=== PATIENT | female | born 2000 | race Caucasian/White ===

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

== ENCOUNTER 2019-02-26 02:15 | Emergency (ER) | payer OTHER ==
[2019-02-26 02:22] VITALS: TEMP 98
[2019-02-26] MEDS ORDERED: SODIUM CHLORIDE 0.9% 1,000 ML IV STA (02:31)
[2019-02-26] MEDS ORDERED: METOCLOPRAMIDE 5 MG/ML 2 ML VIAL IVP STA (02:31)
[2019-02-26] MEDS ORDERED: diphenhydrAMINE 50 MG/ML 1 ML VIAL IVP STA (02:31)
--- NOTE | 2019-02-26 03:57 | ED ---
Headache HPI - General Chief Complaint: Headache Stated Complaint: Migraine 16wks Time Seen by Provider: 02/26/19 02:31 Mode of arrival: ambulatory Limitations: no limitations - History of Present Illness Initial Comments: Patient is a pleasant 18-year-old female in the emergency department today for evaluation of migraine headache. 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 Patient reports that she was previously on multiple medications for her headaches however she is currently 16 weeks and can no longer take any medications. She's been having a headache since yesterday. Headache is diffuse, throbbing identical to previous migraines. Not sudden in onset not worst headache of her life. - Related Data Home Medications Medication Instructions Recorded Confirmed Norethindrone-E.estradiol-Iron 1 tab PO DAILY 01/03/17 08/30/17 [Junel Fe 1.5 mg-30 Mcg Tablet] Cyclobenzaprine [Flexeril] 10 mg PO BID 08/30/17 08/30/17 Previous Rx's Medication Instructions Recorded methylPREDNISolone [Medrol Dose 4 mg PO DIRECTED #1 pack 08/30/17 Pack] Allergies Allergy/AdvReac Type Severity Reaction Status Date / Time amoxicillin Allergy Rash/Hives Verified 02/26/19 02:23 Penicillins Allergy Rash/Hives Verified 02/26/19 02:23 Review of Systems ROS Statement: Those systems with pertinent positive or pertinent negative responses have been documented in the HPI. ROS Other: All systems not noted in ROS Statement are negative. Past Medical History Additional Past Medical History / Comment(s): chiari malformation, migraines. History of Any Multi-Drug Resistant Organisms: None Reported Past Surgical History: Adenoidectomy, Ear Surgery, Tonsillectomy Additional Past Surgical History / Comment(s): Chiari malformation repaired Past Psychological History: Anxiety, Depression, PTSD Smoking Status: Former smoker Past Alcohol Use History: None Reported Past Drug Use History: Marijuana General Exam - General Exam Comments Initial Comments: Physical Exam GENERAL: Patient is well-developed and well-nourished. Patient is nontoxic and well-hydrated and is in no distress. HENT: Normocephalic, Atraumatic. EYES: PERRL, EOMI PULMONARY: Unlabored respirations. CARDIOVASCULAR: RRR Warm and well perfused extremities ABDOMEN: Gravid abdomen with a uterus palpable below the umbilicus SKIN: No rashes or bruising : Deferred NEUROLOGIC: Alert and oriented Normal speech Normal gait MUSCULOSKELETAL: Moving all extremities with no apparent injury PSYCHIATRIC: No SI/HI Limitations: no limitations Course Vital Signs 02/26/19 02:18 Temperature 98 F Pulse Rate 92 Respiratory 20 Rate Blood Pressure 112/70 O2 Sat by Pulse 98 Oximetry Medical Decision Making - Medical Decision Making Patient was seen and evaluated history is obtained from patient and sinuses a pleasant 18 oh female with history of chronic migraines presenting today with a migraine. Patient is not hypertensive, not having abdominal pain or cramping. No concern for preeclampsia or eclampsia especially considering she is early in the second trimester with normal vital signs. Headache management was discussed with the patient, discussed with the patient that while no medications are proven absolutely safe in I would recommend Reglan and Benadryl for her headache, patient is agreeable. She was reevaluated after receiving medicines. She reports her headache is resolved she is resting comfortably she is comfortable with the plan for discharge home. Disposition Clinical Impression: Headache Disposition: HOME SELF-CARE Condition: Stable Instructions (If sedation given, give patient instructions): Acute Headache (ED) Is patient prescribed a controlled substance at d/c from ED?: No Referrals: Daren Joel MD [Primary Care Provider] - 1-2 days
[2019-02-26 05:22] VITALS: BP 91/45; PULSE 98; RESP 16
== END 2019-02-26 05:30 | disposition home or self-care (01) ==
LOC: EC 02:15
DX: O99.352 Diseases of the nervous system complicating pregnancy, second trimester (principal); G43.909 Migraine, unspecified, not intractable, without status migrainosus; Z88.0 Allergy status to penicillin; Z79.3 Long term (current) use of hormonal contraceptives; Z79.899 Other long term (current) drug therapy; Z87.798 Personal history of other (corrected) congenital malformations; Z98.890 Other specified postprocedural states; Z87.891 Personal history of nicotine dependence; Z3A.16 16 weeks gestation of pregnancy
CPT/HCPCS: 96374; 96375; 96361; 99283; J1200; J2765

== ENCOUNTER → 2019-05-16 | Outpatient (CLI) | payer OTHER ==
--- NOTE | 2019-05-16 09:37 | MR ---
EXAMINATION TYPE: MR brain wo con DATE OF EXAM: 05/16/2019 COMPARISON: Correlation CT 12/23/2018 HISTORY: 19-year-old female Q07.9, Post Surgical Chiari malformation f/u TECHNIQUE: Multiplanar, multisequence images of the brain and brainstem were acquired without IV con trast. Diffusion weighted imaging is performed. FINDINGS: Redemonstrated suboccipital decompression and likely some resection along the cerebellar tonsils. No abnormal crowding seen within the posterior cranial fossa. No evidence for acute infarction, hemorrhage, mass, mass effect, midline shift, herniation, effacemen t of basal cisterns, or extra-axial fluid collection. The ventricles and sulci are age-appropriate. Major intracranial flow voids are intact. T2/FLAIR weighted sequences show no white matter signal abnormality. Midline structures demonstrate normal morphology. Scattered trace mucosal thickening ethmoid air cells. Globes are intact. IMPRESSION: Status post suboccipital decompression for Chiari malformation. Otherwise, no intracranial abnormalit y seen.
== END | disposition home or self-care (01) ==
LOC: RADMRIMAIN 07:00
PROVIDERS: ATTEND Neurological Surgery
DX: G93.5 Compression of brain (principal); Q07.9 Congenital malformation of nervous system, unspecified; Z98.890 Other specified postprocedural states
CPT/HCPCS: 70551

== ENCOUNTER 2019-05-23 03:27 | Emergency (ER) | payer OTHER ==
[2019-05-23 03:44] VITALS: RESP 18; TEMP 98.1
[2019-05-23] MEDS ORDERED: SODIUM CHLORIDE 0.9% 1,000 ML IV STA (03:48)
--- NOTE | 2019-05-23 03:52 | ED ---
General Adult HPI - General Chief complaint: Nausea/Vomiting/Diarrhea Stated complaint: Dizzy, fever Time Seen by Provider: 05/23/19 03:48 Source: patient Mode of arrival: ambulatory Limitations: no limitations - History of Present Illness Initial comments: is a 19 yo female currently 8 weeks 4 days presenting to the emergency department today for evaluation of nausea and vomiting and generalized malaise and low-grade fever throughout the day today. Patient reports that she woke the morning yesterday didn't feel very well noted that she had a temperature of 100. She states that she took some Tylenol but throughout the day had waves of nausea vomiting. Patient states that she would feel very hot checking temperature 90 about 100 but then 10 minutes later would be gone. This was persistent throughout the day and the night she became concerned that she may be getting dehydrated which prompted her to come to the ER for evaluation. - Related Data Home Medications Medication Instructions Recorded Confirmed Norethindrone-E.estradiol-Iron 1 tab PO DAILY 01/03/17 08/30/17 [Junel Fe 1.5 mg-30 Mcg Tablet] Cyclobenzaprine [Flexeril] 10 mg PO BID 08/30/17 08/30/17 Previous Rx's Medication Instructions Recorded methylPREDNISolone [Medrol Dose 4 mg PO DIRECTED #1 pack 08/30/17 Pack] Allergies Allergy/AdvReac Type Severity Reaction Status Date / Time amoxicillin Allergy Rash/Hives Verified 05/23/19 03:44 Penicillins Allergy Rash/Hives Verified 05/23/19 03:44 Review of Systems ROS Statement: Those systems with pertinent positive or pertinent negative responses have been documented in the HPI. ROS Other: All systems not noted in ROS Statement are negative. Past Medical History Additional Past Medical History / Comment(s): chiari malformation, migraines. History of Any Multi-Drug Resistant Organisms: None Reported Past Surgical History: Adenoidectomy, Ear Surgery, Tonsillectomy Additional Past Surgical History / Comment(s): Chiari malformation repaired Past Psychological History: Anxiety, Depression, PTSD Smoking Status: Former smoker Past Alcohol Use History: None Reported Past Drug Use History: None Reported, Marijuana General Exam - General Exam Comments Initial Comments: Physical Exam GENERAL: Patient is well-developed and well-nourished. Patient is nontoxic and well- hydrated and is in no distress. HENT: Normocephalic, Atraumatic. EYES: PERRL, EOMI PULMONARY: Unlabored respirations. No audible rales rhonchi or wheezing was noted. CARDIOVASCULAR: Tachycardic, regular ABDOMEN: Gravid abdomen within urine fundus at the xiphoid No abdominal tenderness SKIN: Skin is clear with no lesions or rashes and otherwise unremarkable. : Deferred NEUROLOGIC: Patient is alert and oriented x3. Moving all extremities spontaneously MUSCULOSKELETAL: Normal extremities with adequate strength and full range of motion. No lower extremity swelling or edema. No calf tenderness. PSYCHIATRIC: Normal psychiatric evaluation. Limitations: no limitations Course Vital Signs 05/23/19 05/23/19 03:39 06:02 Temperature 98.1 F Pulse Rate 117 H 83 Respiratory 18 18 Rate Blood Pressure 106/68 103/56 O2 Sat by Pulse 98 100 Oximetry Medical Decision Making - Medical Decision Making The patient was seen and evaluated, history is obtained from patient Nurses came from OB to obtain heart tones noted they were in the 140s Physical exam is relatively unremarkable patient appears mildly dehydrated Labs results with no acute abnormalities, patient receiving 1 L fluid bolus Bedside ultrasound reveals an active fetus Influence was negative, however patient does have an flulike illness. At this time patient's feeling better she's afebrile she never had a fever in the emergency department. Patient is stable for discharge. Patient is drinking juice with no further nausea or vomiting. Patient care was discussed with Dr. Ayon prior to discharge, he states the patient doesn't require any further monitoring on the labor and delivery floor and is stable for discharge home. He is comfortable plan for discharge with Zofran when necessary for nausea. - Lab Data Result diagrams: 05/23/19 04:03 05/23/19 04:03 Lab Results 05/23/19 05/23/19 05/23/19 Range/Units 03:53 03:56 04:03 WBC 11.5 H (4.0-11.0) k/uL RBC 4.10 (3.80-5.40) m/uL Hgb 11.8 (11.4-16.0) gm/dL Hct 35.4 (34.0-46.0) % MCV 86.4 (80.0-100.0) fL MCH 28.7 (25.0-35.0) pg MCHC 33.3 (31.0-37.0) g/dL RDW 12.7 (11.5-15.5) % Plt Count 243 (150-450) k/uL Neutrophils % 70 % Lymphocytes % 20 % Monocytes % 6 % Eosinophils % 1 % Basophils % 0 % Neutrophils # 8.0 H (1.3-7.7) k/uL Lymphocytes # 2.3 (1.0-4.8) k/uL Monocytes # 0.7 (0-1.0) k/uL Eosinophils # 0.1 (0-0.7) k/uL Basophils # 0.0 (0-0.2) k/uL Sodium (137-145) mmol/L Potassium (3.5-5.1) mmol/L Chloride (98-107) mmol/L Carbon Dioxide (22-30) mmol/L Anion Gap mmol/L BUN (7-17) mg/dL Creatinine (0.52-1.04) mg/dL Est GFR (CKD-EPI)AfAm (>60 ml/min/1.73 sqM) Est GFR (CKD-EPI)NonAf (>60 ml/min/1.73 sqM) Glucose (74-99) mg/dL Calcium (8.4-10.2) mg/dL Total Bilirubin (0.2-1.3) mg/dL AST (14-36) U/L ALT (4-34) U/L Alkaline Phosphatase (38-126) U/L Total Protein (6.3-8.2) g/dL Albumin (3.5-5.0) g/dL Amylase (30-110) U/L Lipase (23-300) U/L Urine Color Yellow Urine Appearance Clear (Clear) Urine pH 5.5 (5.0-8.0) Ur Specific Foley 1.020 (1.001-1.035) Urine Protein Trace H (Negative) Urine Glucose (UA) Negative (Negative) Urine Ketones Trace H (Negative) Urine Blood Negative (Negative) Urine Nitrite Negative (Negative) Urine Bilirubin Negative (Negative) Urine Urobilinogen <2.0 (<2.0) mg/dL Ur Leukocyte Esterase Negative (Negative) Influenza Type A RNA Not Detected (Not Detectd) Influenza Type B (PCR) Not Detected (Not Detectd) 05/23/19 Range/Units 04:03 WBC (4.0-11.0) k/uL RBC (3.80-5.40) m/uL Hgb (11.4-16.0) gm/dL Hct (34.0-46.0) % MCV (80.0-100.0) fL MCH (25.0-35.0) pg MCHC (31.0-37.0) g/dL RDW (11.5-15.5) % Plt Count (150-450) k/uL Neutrophils % % Lymphocytes % % Monocytes % % Eosinophils % % Basophils % % Neutrophils # (1.3-7.7) k/uL Lymphocytes # (1.0-4.8) k/uL Monocytes # (0-1.0) k/uL Eosinophils # (0-0.7) k/uL Basophils # (0-0.2) k/uL Sodium 135 L (137-145) mmol/L Potassium 3.9 (3.5-5.1) mmol/L Chloride 104 (98-107) mmol/L Carbon Dioxide 23 (22-30) mmol/L Anion Gap 8 mmol/L BUN 7 (7-17) mg/dL Creatinine 0.42 L (0.52-1.04) mg/dL Est GFR (CKD-EPI)AfAm >90 (>60 ml/min/1.73 sqM) Est GFR (CKD-EPI)NonAf >90 (>60 ml/min/1.73 sqM) Glucose 77 (74-99) mg/dL Calcium 9.0 (8.4-10.2) mg/dL Total Bilirubin 0.1 L (0.2-1.3) mg/dL AST 26 (14-36) U/L ALT 15 (4-34) U/L Alkaline Phosphatase 87 (38-126) U/L Total Protein 6.5 (6.3-8.2) g/dL Albumin 3.6 (3.5-5.0) g/dL Amylase 62 (30-110) U/L Lipase 40 (23-300) U/L Urine Color Urine Appearance (Clear) Urine pH (5.0-8.0) Ur Specific Foley (1.001-1.035) Urine Protein (Negative) Urine Glucose (UA) (Negative) Urine Ketones (Negative) Urine Blood (Negative) Urine Nitrite (Negative) Urine Bilirubin (Negative) Urine Urobilinogen (<2.0) mg/dL Ur Leukocyte Esterase (Negative) Influenza Type A RNA (Not Detectd) Influenza Type B (PCR) (Not Detectd) Disposition Clinical Impression: Flu-like symptoms Disposition: HOME SELF-CARE Condition: Stable Instructions (If sedation given, give patient instructions): Acute Nausea and Vomiting (ED) Is patient prescribed a controlled substance at d/c from ED?: No Referrals: Daren Joel MD [Primary Care Provider] - 1-2 days
[2019-05-23 04:14] LABS: Basophils % (A) 0 %; Eosinophils # (A) 0.1 k/uL (0-0.7); Eosinophils % (A) 1 %; HCT 35.4 % (34.0-46.0); HGB 11.8 gm/dL (11.4-16.0); Lymphocytes # (A) 2.3 k/uL (1.0-4.8); Lymphocytes % (A) 20 %; MCH 28.7 pg (25.0-35.0); MCHC 33.3 g/dL (31.0-37.0); MCV 86.4 fL (80.0-100.0); Mean Platelet Volume 7.3; Monocytes # (A) 0.7 k/uL (0-1.0); Monocytes % (A) 6 %; Neutrophils % (A) 70 %; Platelet Count 243 k/uL (150-450); RDW 12.7 % (11.5-15.5); WBC 11.5 k/uL (4.0-11.0)
[2019-05-23 04:19] LABS: Appearance,Urine Clear (Clear); Bilirubin,Urine Negative (Negative); Blood,Urine Negative (Negative); Color,Urine Yellow; Glucose,Urine (UA) Negative (Negative); Ketones,Urine Trace (Negative); Leukocyte Esterase,Urine Negative (Negative); Nitrite,Urine Negative (Negative); PH, Urine 5.5 (5.0-8.0); Protein,Urine Trace (Negative); Urobilinogen,Urine <2.0 mg/dL (<2.0)
[2019-05-23 04:23] LABS: ALT 15 U/L (4-34); AST 26 U/L (14-36); African American GFR (CKD) >90 (>60 ml/min/1.73 sqM); Albumin 3.6 g/dL (3.5-5.0); Alkaline Phosphatase 87 U/L (38-126); Amylase 62 U/L (30-110); Anion Gap 8 mmol/L; Blood Urea Nitrogen 7 mg/dL (7-17); Carbon Dioxide 23 mmol/L (22-30); Chloride 104 mmol/L (98-107); Glucose 77 mg/dL (74-99); Non-African American GFR(CKD) >90 (>60 ml/min/1.73 sqM); Potassium 3.9 mmol/L (3.5-5.1); Sodium 135 mmol/L (137-145); Total Bilirubin 0.1 mg/dL (0.2-1.3); Total Protein 6.5 g/dL (6.3-8.2)
[2019-05-23 06:03] VITALS: BP 103/56; PULSE 83
[2019-05-23] MEDS ORDERED: ONDANSETRON 4 MG ODT STARTER PACK 2 TAB BTL PO STA (06:26)
== END 2019-05-23 06:35 | disposition home or self-care (01) ==
LOC: EC 03:27
DX: O21.9 Vomiting of pregnancy, unspecified (principal); O99.89 Other specified diseases and conditions complicating pregnancy, childbirth and the puerperium; E86.0 Dehydration; Z79.3 Long term (current) use of hormonal contraceptives; Z88.0 Allergy status to penicillin; Z87.891 Personal history of nicotine dependence; Z87.798 Personal history of other (corrected) congenital malformations; Z98.890 Other specified postprocedural states; Z3A.08 8 weeks gestation of pregnancy
CPT/HCPCS: 36415; 80053; 81003; 82150; 83690; 85025; 87502; 96360; 96361; 99284

== ENCOUNTER → 2019-06-05 | Outpatient (CLI) | payer OTHER ==
[2019-06-05 10:40] LABS: Glucose 3 Hour, Gest 89 mg/dL
== END | disposition home or self-care (01) ==
LOC: LABWHC1 06:45
PROVIDERS: ATTEND Obstetrics & Gynecology
DX: O99.810 Abnormal glucose complicating pregnancy (principal); Z3A.00 Weeks of gestation of pregnancy not specified
CPT/HCPCS: 36415; 82951; 82952

== ENCOUNTER 2019-08-03 12:14 | Outpatient (CLI) | payer OTHER ==
[2019-08-03 13:32] VITALS: BP 110/61; PULSE 102; RESP 16; TEMP 97.3
--- NOTE | 2019-08-23 09:32 | P.MSEPDOC ---
Presenting Problems - Arrival Data Date of Arrival on Unit: 08/03/19 Time of Arrival on Unit: 12:14 Mode of Transport: Ambulatory - Complaint OB-Reason for Admission/Chief Complaint: Rule Out SROM, Decreased Movement Medical History - Information : 1 Para: 0 Term: 0 : 0 Abortions: Spontaneous or Elective: 0 Number of Living Children: 0 - Gestational Age Gestational Age by MINGO (wks/days): 38 Weeks and 5 Days Review of Systems - Review of Systems Constitutional: No problems Breast: No problems ENT: No problems Cardiovascular: No problems Respiratory: No problems Gastrointestinal: No problems Genitourinary: No problems Musculoskeletal: No problems Neurological: No problems Skin: No problems Vital Signs - Temperature Temperature: 97.3 F Temperature Source: Temporal Artery Scan - Pulse Right Brachial Pulse Rate: 102 Pulse Assessment Method: Automatic Cuff - Respirations Respiratory Rate: 16 - Blood Pressure Right Arm Blood Pressure: 110/61 Blood Pressure Mean: 77 Blood Pressure Source: Automatic Cuff Medical Screen Scoring (Pre) - Cervical Exam Dilation: 1-3 cm = 1 Membranes: Intact - Uterine Contractions Frequency: N/A Duration: N/A Intensity: N/A - Maternal Vital Signs Maternal Temperature: N/A Maternal Blood Pressure: N/A Signs of Preeclampsia: N/A Maternal Respirations: N/A - Maternal Trauma Maternal Trauma: N/A - Assessment - Baby A Baseline FHR: 140 Heart Rate - NICHD Category: Category I (Normal) = 0 NST: Reactive Position: N/A Station: N/A - Total Score - Baby A Total Score - Baby A: 1 - Total Score - Baby B Total Score - Baby B: 1 - Total Score - Baby C Total Score - Baby C: 1 - Level of Risk - Baby A Level of Risk - Baby A: Low (0-5) - Level of Risk - Baby B Level of Risk - Baby B: Low (0-5) - Level of Risk - Baby C Level of Risk - Baby C: Low (0-5) Physician Notification (Pre) - Physician Notified Physician Notified Date: 08/03/19 Physician Notified Time: 13:14 New Order Received: Yes - Notification Comment Comment: Dr. Hawk gave orders to discharge home and keep appointment for next Tuesday Disposition - Disposition OB Disposition: Discharge to home Discharge Date: 08/03/19 Discharge Time: 13:23 I agree with the RN Medical Screening Exam: Yes Risk & Benefit of care provided described in d/c instruction: Yes Diagnosis: DECREASED MOVEMENTS, THIRD TRIMESTER, UNSP
== END 2019-08-03 13:23 | disposition home or self-care (01) ==
LOC: FBPOP 12:14
PROVIDERS: ATTEND Obstetrics & Gynecology
DX: O36.8130 Decreased fetal movements, third trimester, not applicable or unspecified (principal); Z3A.38 38 weeks gestation of pregnancy
CPT/HCPCS: 59025; 84112; G0463; 99213

== ENCOUNTER → 2019-08-10 | Outpatient (CLI) | payer OTHER | END | disposition home or self-care (01) | LOC: LABWHC1 11:51 | PROVIDERS: ATTEND Obstetrics & Gynecology | DX: Z11.59 Encounter for screening for other viral diseases (principal) | CPT/HCPCS: 87635 ==

== ENCOUNTER 2019-08-15 06:00 | Inpatient (IN) | payer OTHER ==
[~2019-08-15 06:00] MED LIST: CARBOPROST TROMETHAMINE 250 MCG/ML 1 ML AMP IM PRN; LIDOCAINE 0.5% (PF) 5 MG/ML (50 ML SDV) SQ PRN; METHYLERGONOVINE 0.2 MG/ML 1 ML AMP IM PRN; OXYTOCIN 10 UNIT/ML 1 ML VIAL IM PRN; TERBUTALINE 1 MG/ML VIAL SQ PRN
[2019-08-15] MEDS: LACTATED RINGERS 1,000 ML IV SCH ×3 (07:02→14:37)
[2019-08-15] MEDS: OXYTOCIN 30 UNITS/500 ML NS 30 UNIT in SALINE 1 500ML.BAG IV SCH (07:03)
[2019-08-15 07:09] LABS: Anisocytosis Slight; Basophils % (A) 1 %; Eosinophils # (A) 0.1 k/uL (0-0.7); Eosinophils % (A) 1 %; HCT 32.4 % (34.0-46.0); HGB 10.5 gm/dL (11.4-16.0); Hypochromasia Moderate; Lymphocytes # (A) 2.3 k/uL (1.0-4.8); Lymphocytes % (A) 27 %; MCH 25.1 pg (25.0-35.0); MCHC 32.2 g/dL (31.0-37.0); MCV 77.7 fL (80.0-100.0); Mean Platelet Volume 9.2; Microcytosis Slight; Monocytes # (A) 0.6 k/uL (0-1.0); Monocytes % (A) 7 %; Neutrophils # (A) 5.1 k/uL (1.3-7.7); Neutrophils % (A) 61 %; Platelet Count 193 k/uL (150-450); RBC 4.17 m/uL (3.80-5.40); RDW 16.2 % (11.5-15.5); WBC 8.3 k/uL (4.0-11.0)
[2019-08-15] MEDS ORDERED: FAMOTIDINE 20 MG/2 ML VIAL IV STA (07:13)
[2019-08-15] MEDS: BUTORPHANOL 1 MG/ML 1 ML VIAL IV PRN ×2 (11:37→13:43)
--- NOTE | 2019-08-15 13:04 | P.HPOB ---
History of Present Illness H&P Date: 08/15/19 Chief Complaint: Induction of labor 19-year-old presents at 40 weeks and 3 days for induction of labor. Her cervix was 1 cm dilated, 70% effaced, -2 station. She is robbin irregularly. heart tones 130 with moderate variability and reactive. Review of Systems All systems: negative Constitutional: Denies chills, Denies fever Eyes: denies blurred vision, denies pain Ears, nose, mouth and throat: Denies headache, Denies sore throat Cardiovascular: Denies chest pain, Denies shortness of breath Respiratory: Denies cough Gastrointestinal: Denies abdominal pain, Denies diarrhea, Denies nausea, Denies vomiting Genitourinary: Denies dysuria, Denies hematuria Musculoskeletal: Denies myalgias Integumentary: Denies pruritus, Denies rash Neurological: Denies numbness, Denies weakness Psychiatric: Denies anxiety, Denies depression Endocrine: Denies fatigue, Denies weight change Past Medical History Past Medical History: Asthma Additional Past Medical History / Comment(s): chiari malformation, migraines. History of Any Multi-Drug Resistant Organisms: None Reported Past Surgical History: Adenoidectomy, Ear Surgery, Tonsillectomy Additional Past Surgical History / Comment(s): Chiari malformation repaired Past Anesthesia/Blood Transfusion Reactions: No Reported Reaction Past Psychological History: Anxiety, Depression, PTSD Smoking Status: Current some day smoker Past Alcohol Use History: None Reported Past Drug Use History: None Reported, Marijuana Additional Drug Use History / Comment(s): states has smoked cigarettes a few times during Medications and Allergies Home Medications Medication Instructions Recorded Confirmed Type Pnv,Calcium 72/Iron/Folic Acid 1 each PO DAILY 08/03/19 08/15/19 History [ Plus Tablet] Allergies Allergy/AdvReac Type Severity Reaction Status Date / Time amoxicillin Allergy Rash/Hives Verified 05/23/19 03:44 Penicillins Allergy Rash/Hives Verified 05/23/19 03:44 seafood Allergy Swelling Uncoded 08/15/19 06:24 Exam Osteopathic Statement: *. No significant issues noted on an osteopathic structural exam other than those noted in the History and Physical/Consult. Vital Signs Temp Pulse Resp BP 08/15/19 06:22 96.8 F L 88 16 120/78 Intake and Output 08/14/19 08/15/1908/14/20 22:59 06:59 14:59 Other: Weight 92.533 kg Heart: Regular rate and rhythm Lungs: Clear to auscultation bilaterally Abdomen: Soft, nontender Extremities: Negative Homans sign Results Result Diagrams: 08/15/19 07:00 Abnormal Lab Results - Last 24 Hours (Table) 08/15/19 Range/Units 07:00 Hgb 10.5 L (11.4-16.0) gm/dL Hct 32.4 L (34.0-46.0) % MCV 77.7 L (80.0-100.0) fL RDW 16.2 H (11.5-15.5) % Assessment and Plan (1) Normal labor Current Visit: Yes Status: Acute Code(s): O80 - ENCOUNTER FOR FULL-TERM UNCOMPLICATED DELIVERY; Z37.9 - OUTCOME OF DELIVERY, UNSPECIFIED SNOMED Code(s): 39757371 Plan: 1. Induction of labor with amniotomy and Pitocin 2. Anticipate normal vaginal delivery
[2019-08-15] MEDS ORDERED: SODIUM CHLORIDE 0.9% 100 ML BAG ONE (14:59)
[2019-08-15] MEDS ORDERED: ROPIVACAINE 5MG/ML 20ML VIAL ONE (14:59)
[2019-08-15] MEDS ORDERED: fentaNYL (PF) 50 MCG/ML 5 ML AMP ONE (14:59)
[2019-08-15] MEDS ORDERED: CITRIC ACID-SODIUM CITRATE 15 ML CUP PO ONE (21:12)
[2019-08-15] MEDS ORDERED: DEXAMETHASONE SOD PHOS (MDV) 100 MG/10 ML VIAL ONE (21:26)
[2019-08-15] MEDS ORDERED: CLINDAMYCIN 150 MG/ML 4 ML VIAL ONE (21:26)
[2019-08-15] MEDS ORDERED: OXYTOCIN 10 UNIT/ML 1 ML VIAL ONE (21:26)
[2019-08-15] MEDS ORDERED: KETOROLAC 30 MG/ML 1 ML VIAL ONE (21:26)
[2019-08-15] MEDS ORDERED: ONDANSETRON 4 MG/2 ML VIAL ONE (21:26)
[2019-08-15] MEDS ORDERED: ePHEDrine SULFATE/0.9% NACL/PF 50 MG/5 ML SYRINGE IV ONE (21:26)
[2019-08-15] MEDS ORDERED: MORPHINE SULFATE (PF) 0.3 MG/0.3 ML SYR ONE (21:26)
[2019-08-15] MEDS ORDERED: SIMETHICONE 80 MG CHEWABLE PO PRN (22:11)
[2019-08-15] MEDS ORDERED: METOCLOPRAMIDE 5 MG/ML 2 ML VIAL IVP PRN (22:11)
[2019-08-15] MEDS ORDERED: ONDANSETRON 4 MG/2 ML VIAL IVP PRN (22:11)
[2019-08-15] MEDS ORDERED: diphenhydrAMINE 50 MG CAP PO PRN (22:11)
[2019-08-15] MEDS ORDERED: LANOLIN CREAM 5 GM TUBE TOPICAL PRN (22:11)
[2019-08-15] MEDS ORDERED: ACETAMINOPHEN TAB 325 MG TAB PO PRN (22:11)
[2019-08-15] MEDS ORDERED: diphenhydrAMINE 50 MG/ML 1 ML VIAL IVP PRN ×2 (22:11)
[2019-08-15] MEDS ORDERED: diphenhydrAMINE 25 MG CAP PO PRN (22:11)
[2019-08-15] MEDS ORDERED: NALOXONE 0.4 MG/ML 1 ML VIAL IV PRN ×2 (22:11→22:23)
[2019-08-15] MEDS ORDERED: ZOLPIDEM 5 MG TAB PO PRN (22:11)
[2019-08-15] MEDS ORDERED: Rhogam IMMUNE GLOBULIN 1,500 UNIT/1 ML IM ONE (22:11)
[2019-08-15] MEDS ORDERED: OXYTOCIN 20 UNITS/1000 ML NS 1,000 ML IV SCH (22:15)
--- NOTE | 2019-08-15 22:18 | P.OP ---
Date of Procedure: 08/15/19 Preoperative Diagnosis: 1. at 40 weeks 3 days 2. arrest of descent Postoperative Diagnosis: 1. at 40 weeks 3 days 2. arrest of descent Procedure(s) Performed: Primary low transverse Anesthesia: spinal Surgeon: Gini Hawk [employer] Sales Director #1: Mark Dent Estimated Blood Loss (ml): 600 IV fluids (ml): 1,000 Urine output (ml): 200 Pathology: none sent Condition: stable Disposition: floor Indications for Procedure: 19-year-old presented at 40 weeks and 3 days for induction of labor. Her cervix was 1 cm dilated, 70% effaced, and -2 station. She was robbin irregularly. heart tones 130 with moderate variability and reactive. Pitocin was started and amniotomy was performed at 7:06 AM clear fluid noted. She progressed slowly throughout the day. When she was uncomfortable and about 3 cm dilated she did get an epidural. She went quickly from 3 cm to 6 cm dilated and then completely dilated within an hour. She pushed for over an hour and had very little descent with pushing. The pain became to severe in her left groin area and she couldn't effectively push. Informed consent was obtained and section was called. Operative Findings: Viable female, Apgars 8, 9, weight 8 lbs. 15 oz. Normal uterus, tubes, ovaries. Description of Procedure: Patient was taken to the operating room where spinal anesthesia was found be adequate. She was prepped and draped in normal sterile fashion in dorsal supine position with a leftward tilt. Pfannenstiel skin incision was made the scalpel and carried through to the underlying layer of fascia with the scalpel. Fascia was incised in midline and carried bilaterally with the Godoy scissors. The superior aspect of the fascial incision was grasped with Portia clamps elevated and the underlying rectus muscles dissected off with the Godoy's. Attention was then turned to inferior aspect of same incision which in a similar fashion was grasped tented up and the underlying rectus muscles dissected off with the Godoy's. The rectus muscles were the midline and the peritoneum was identified tented up and entered sharply with the scalpel. The incision was extended superiorly and inferiorly with good visualization of the bladder. The bladder blade was inserted and the vesicouterine peritoneum was incised the Metzenbaums then carried bilaterally and bladder flap created digitally. A low transverse incision was then made on the uterus with the scalpel. This was carried bilaterally and digital manner. 's head delivered atraumatically, nose and mouth bulb suctioned, cord clamped and cut, handed off to waiting nurses. Apgars 8,9, weight 8 lbs. 15 oz. Placenta delivered manually, intact with three-vessel cord. The uterus is exteriorized and cleared of all clots and debris. The uterine incision was closed with 0 Vicryl in a running locked fashion. Second layer of the same sutures used in imbricating fashion to obtain excellent hemostasis. Bladder flap was then reapproximated using 2-0 Vicryl in a running fashion. Both ovaries and tubes appeared normal. The uterus was placed back into the abdomen. The peritoneum was reapproximated using 2-0 Vicryl in a running fashion. The muscles were reapproximated using 2- 0 Vicryl in interrupted fashion. The fascia was reapproximated using 0 Vicryl in a running fashion. The subcutaneous tissues closed with 3-0 Vicryl running fashion. The skin was closed marly. Patient tolerated the procedure well, sponge and instrument counts were correct times 2 and she was taken to the recovery room in stable condition.
[2019-08-15] MEDS ORDERED: KETOROLAC 30 MG/ML 1 ML VIAL IVP PRN (22:23)
[2019-08-15] MEDS ORDERED: HYDROmorphone 0.5 MG/0.5 ML SYRINGE IVP PRN (22:23)
[2019-08-16] MEDS: KETOROLAC 30 MG/ML 1 ML VIAL IVP PRN ×3 (05:02→21:08)
[2019-08-16 06:16] LABS: Anisocytosis Slight; Basophils % (A) 0 %; Eosinophils % (A) 0 %; HCT 27.9 % (34.0-46.0); Hypochromasia Marked; Lymphocytes # (A) 0.8 k/uL (1.0-4.8); Lymphocytes % (A) 4 %; MCH 25.4 pg (25.0-35.0); MCHC 32.3 g/dL (31.0-37.0); MCV 78.4 fL (80.0-100.0); Mean Platelet Volume 9.1; Monocytes # (A) 0.7 k/uL (0-1.0); Monocytes % (A) 3 %; Neutrophils # (A) 19.6 k/uL (1.3-7.7); Neutrophils % (A) 92 %; Platelet Count 190 k/uL (150-450); RBC 3.56 m/uL (3.80-5.40); WBC 21.3 k/uL (4.0-11.0)
--- NOTE | 2019-08-16 06:47 | P.PN ---
Progress Note - Text Progress Note Date: 08/16/19 Postoperative day 1 status post section under spinal anesthesia, and i ntrathecal morphine given for postoperative analgesia, patient doing well, there is no anesthesia related complications, Patient had no headache, vital signs stable , Assessment and plan= postop day 1 status post , doing well there is no anesthesia related complication.
--- NOTE | 2019-08-16 07:14 | P.PNOBGPC ---
Subjective - Subjective Principal diagnosis: Status post primary low transverse postop day #1 Interval history: Patient seen and examined. Denies nausea, vomiting, chest pain, shortness of breath or calf pain. Patient reports: Reports voiding normally, Reports pain well controlled Haynes: doing well Objective - Vital Signs Latest vital signs: Vital Signs Temp Pulse Resp BP Pulse Ox 08/16/19 04:00 98.8 F 97 16 120/69 08/16/19 03:00 16 08/16/19 01:23 16 08/16/19 00:18 97.3 F L 96 16 125/66 08/15/19 23:48 97.3 F L 102 H 18 120/62 08/15/19 23:23 16 100 08/15/19 23:18 97.1 F L 106 H 18 113/61 08/15/19 23:03 96.9 F L 82 16 109/59 08/15/19 22:48 16 109/58 100 08/15/19 22:33 97.0 F L 94 18 105/53 94 L 08/15/19 22:23 18 96 08/15/19 22:18 96.6 F L 113 H 18 103/50 97 Intake and Output 08/15/19 08/16/19 08/16/19 22:59 06:59 14:59 Output Total 200 200 Balance -200 -200 Output: Urine 200 200 Other: Voiding Method Indwelling Catheter - Exam Lungs: bilateral: normal Chest: Normal S1, Normal S2 Extremities: Present: normal Abdomen: Present: normal appearance, soft. Absent: distention, tenderness Incision: Present: normal, dry, intact Uterus: Present: normal, firm - Labs Labs: Abnormal Lab Results - Last 24 Hours (Table) 08/16/19 Range/Units 05:47 WBC 21.3 H (4.0-11.0) k/uL RBC 3.56 L (3.80-5.40) m/uL Hgb 9.0 L D (11.4-16.0) gm/dL Hct 27.9 L (34.0-46.0) % MCV 78.4 L (80.0-100.0) fL RDW 16.0 H (11.5-15.5) % Neutrophils # 19.6 H (1.3-7.7) k/uL Lymphocytes # 0.8 L (1.0-4.8) k/uL Assessment and Plan (1) Normal labor Current Visit: Yes Status: Resolved Code(s): O80 - ENCOUNTER FOR FULL-TERM UNCOMPLICATED DELIVERY; Z37.9 - OUTCOME OF DELIVERY, UNSPECIFIED SNOMED Code(s): 20756307 (2) Status post primary low transverse section Current Visit: Yes Status: Acute Code(s): Z98.891 - HISTORY OF UTERINE SCAR FROM PREVIOUS SURGERY SNOMED Code(s): 589038528 Plan: 1. Increase ambulation 2. Clear liquids for this morning and then regular diet for lunch. 3. Pain control
[2019-08-16] MEDS: LACTATED RINGERS 1,000 ML IV SCH (15:00)
[2019-08-16] MEDS: SENNOSIDES-DOCUSATE SODIUM 1 EACH TAB PO SCH (19:17)
--- NOTE | 2019-08-17 07:47 | P.PNOBGPC ---
Subjective - Subjective Principal diagnosis: Status post primary low transverse postop day #2 Interval history: Patient seen and examined. She still having trouble controlling her pain. Denies nausea, vomiting, chest pain, shortness of breath or calf pain. Patient reports: Reports appetite normal, Reports voiding normally, Reports ambulating normally Roberts: doing well Objective - Vital Signs Latest vital signs: Vital Signs Temp Pulse Resp BP 08/17/19 00:00 98.8 F 104 H 16 110/78 08/16/19 20:33 16 08/16/19 20:00 98.7 F 114 H 18 112/68 08/16/19 18:49 16 08/16/19 15:39 98.4 F 98 16 118/64 08/16/19 15:00 16 08/16/19 13:00 16 08/16/19 12:00 98.2 F 84 16 113/70 08/16/19 11:00 16 08/16/19 09:00 16 08/16/19 08:00 98.2 F 104 H 16 116/62 Intake and Output 08/16/19 08/17/19 08/17/19 22:59 06:59 14:59 Intake Total 300 Output Total 900 Balance -600 Intake: IV 300 Output: Urine 900 Other: # Voids 2 - Exam Lungs: bilateral: normal Chest: Normal S1, Normal S2 Extremities: Present: normal Abdomen: Present: normal appearance, soft. Absent: distention, tenderness Incision: Present: normal, dry, intact Uterus: Present: normal, firm Assessment and Plan (1) Normal labor Current Visit: Yes Status: Resolved Code(s): O80 - ENCOUNTER FOR FULL-TERM UNCOMPLICATED DELIVERY; Z37.9 - OUTCOME OF DELIVERY, UNSPECIFIED SNOMED Code(s): 20243796 (2) Status post primary low transverse section Current Visit: Yes Status: Acute Code(s): Z98.891 - HISTORY OF UTERINE SCAR FROM PREVIOUS SURGERY SNOMED Code(s): 229428713 Plan: 1. Increase ambulation 2. Pain control with by mouth pain meds 3. Regular diet
[2019-08-17] MEDS: IBUPROFEN 600 MG TAB PO PRN ×3 (08:01→22:21)
[2019-08-17] MEDS: SENNOSIDES-DOCUSATE SODIUM 1 EACH TAB PO SCH ×3 (08:02→22:22)
[2019-08-17] MEDS: LACTATED RINGERS 1,000 ML IV SCH (11:09)
[2019-08-17] MEDS: HYDROcodone/APAP 7.5-325MG 1 EACH TAB PO PRN ×2 (11:14→17:37)
[2019-08-17] MEDS ORDERED: MEASLES-MUMPS-RUBELLA VACC/PF 12,500 UNIT/0.5 ML VIAL SQ ONE (14:21)
[2019-08-18] MEDS: LACTATED RINGERS 1,000 ML IV SCH ×2 (00:48→00:49)
[2019-08-18] MEDS: OXYTOCIN 30 UNITS/500 ML NS 30 UNIT in SALINE 1 500ML.BAG IV SCH (00:48)
--- NOTE | 2019-08-18 04:27 | P.DS ---
Providers Date of admission: 08/15/19 06:07 Expected date of discharge: 08/18/19 Attending physician: Gini Hawk Primary care physician: Stated None Hospital Course: This is a 19-year-old female 1 para 0 at 40-3/7 weeks who presented for induction of labor. Please see history and physical and operative note for details of procedure. She delivered a viable female infant on 08/15/2019 with scores of 8 at 1 minute and 9 at 5 minutes and infant weight of 8 lbs. 15 oz. Her postoperative course was complicated by some pain control issues. She is doing much better today. She is alternating between ibuprofen and [place]. She is passing flatus but no bowel movement yet. She is breast-feeding. Vital signs are stable. Abdomen is soft with fundus nontender. Incision is clean dry and intact. Bowel sounds are present 4. Extremities show negative Homans. Impression is status post primary section postoperative day #3. Plan is to discharge home today. Routine postoperative and instructions are given. Prescriptions have already been sent to the pharmacy by Dr. Hawk. She is advised to follow up with Dr. Hawk in the office in 1 week for a postoperative check and in 6 weeks for check. She is advised to call the office if she has any further questions or concerns prior to that time. Procedures: Oxytocin induction of labor Primary low transverse section on 08/15/2019 Patient Condition at Discharge: Stable Plan - Discharge Summary New Discharge Prescriptions: New Ibuprofen [Motrin] 600 mg PO Q6HR PRN #30 tab PRN Reason: Mild Pain Or Fever >= 100.5 HYDROcodone/APAP 7.5-325MG [[place] 7.5-325] 1 each PO Q6H PRN #12 tab PRN Reason: Severe Pain No Action Pnv,Calcium 72/Iron/Folic Acid [ Plus Tablet] 1 each PO DAILY Discharge Medication List Pnv,Calcium 72/Iron/Folic Acid [ Plus Tablet] 1 each PO DAILY 08/03/19 [History] HYDROcodone/APAP 7.5-325MG [[place] 7.5-325] 1 each PO Q6H PRN #12 tab 08/17/19 [Rx] Ibuprofen [Motrin] 600 mg PO Q6HR PRN #30 tab 08/17/19 [Rx] Follow up Appointment(s)/Referral(s): Gini Hawk DO [Doctor of Osteopathic Medicine] - 1 Week Discharge Disposition: HOME SELF-CARE
[2019-08-18] MEDS: SENNOSIDES-DOCUSATE SODIUM 1 EACH TAB PO SCH (08:12)
[2019-08-18] MEDS: IBUPROFEN 600 MG TAB PO PRN (08:12)
[2019-08-18 09:13] VITALS: BP 124/72; PULSE 84; RESP 20; TEMP 98.8
[2019-08-18] MEDS: HYDROcodone/APAP 7.5-325MG 1 EACH TAB PO PRN (11:37)
--- NOTE | 2019-08-22 15:22 | CDI ---
Documentation Clarification Form Date: 08/22/19 From: Merlyn Boyce CCS Phone: If you have a question about this query, please contact Martha Mir, Oral And Maxillofacial Surgeon at [phone] between 8am and 5pm. Admit Date: 08/15/19 Discharge Date:08/18/19 Patient Name: Princess Star Visit Number: [id number] ATTENTION: The Clinical Documentation Specialists (CDI) and [facility] Coding Staff appreciate your assistance in clarifying documentation. Please respond to the clarification below the line at the bottom and electronically sign. The CDI & [facility] Coding staff will review the response and follow-up if needed. Please note: Queries are made part of the Legal Health Record. If you have any questions, please contact the author of this message via ITS. Dear Dr. Hawk, Documentation states: Hgb 10.5, 9.0- Hct 32.4, 27.9 Patient is status post Primary low transverse Estimated blood loss: 600 ml History/Risk Factors: Status post low transverse Clinical indicators: Significant drop in Hgb/Hct Hgb: 10.5, 9.0 Hct: 32.4, 27.9 Treatment: Pnv, Calcium/Iron/Folic Acid Clinical significance of diagnostic testing and treatment CANNOT be assumed or coded without physician documentation of significance if any. Please clarify what abnormal laboratory signifies: Acute blood loss anemia; Anemia Disease process, please specify Infectious process, please specify Abnormal Lab Value Unable to determine Other, please specify I believe it was acute blood loss anemia. there may be different quantitative blood loss than estimated blood loss. MTDD
== END 2019-08-18 12:30 | disposition home or self-care (01) | DRG 787 ==
LOC: 4FBP 06:07
PROVIDERS: ADMIT Obstetrics & Gynecology; ATTEND Obstetrics & Gynecology
PROC: 3E033VJ Introduction of Other Hormone into Peripheral Vein, Percutaneous Approach (ICD-10-PCS; 2019-08-15)
PROC: 10907ZC Drainage of Amniotic Fluid, Therapeutic from Products of Conception, Via Natural or Artificial Opening (ICD-10-PCS; 2019-08-15)
PROC: 3E0R3BZ Introduction of Anesthetic Agent into Spinal Canal, Percutaneous Approach (ICD-10-PCS; 2019-08-15)
PROC: 3E0234Z Introduction of Serum, Toxoid and Vaccine into Muscle, Percutaneous Approach (ICD-10-PCS; 2019-08-15)
PROC: 10D00Z1 Extraction of Products of Conception, Low, Open Approach (ICD-10-PCS; principal; 2019-08-15 21:20)
PROC: 3E0134Z Introduction of Serum, Toxoid and Vaccine into Subcutaneous Tissue, Percutaneous Approach (ICD-10-PCS; 2019-08-17)
DX: O99.334 Smoking (tobacco) complicating childbirth (principal); O36.0930 Maternal care for other rhesus isoimmunization, third trimester, not applicable or unspecified; D62 Acute posthemorrhagic anemia; F43.10 Post-traumatic stress disorder, unspecified; O99.344 Other mental disorders complicating childbirth; F17.210 Nicotine dependence, cigarettes, uncomplicated; O99.52 Diseases of the respiratory system complicating childbirth; O62.1 Secondary uterine inertia; O90.81 Anemia of the puerperium; J45.909 Unspecified asthma, uncomplicated; G43.909 Migraine, unspecified, not intractable, without status migrainosus; Z86.59 Personal history of other mental and behavioral disorders; Z98.890 Other specified postprocedural states; Z79.899 Other long term (current) drug therapy; Z37.0 Single live birth; Z3A.40 40 weeks gestation of pregnancy; Z86.69 Personal history of other diseases of the nervous system and sense organs; Z23 Encounter for immunization; Z88.0 Allergy status to penicillin; Z91.013 Allergy to seafood; Z80.3 Family history of malignant neoplasm of breast; Z81.1 Family history of alcohol abuse and dependence; Z81.8 Family history of other mental and behavioral disorders
CPT/HCPCS: 85025; 85461; 86850; 86900; 86901; 90471; 90707

== ENCOUNTER 2019-09-20 20:13 | Emergency (ER) | payer OTHER ==
[2019-09-20 20:27] VITALS: RESP 18
[2019-09-20] MEDS ORDERED: SODIUM CHLORIDE 0.9% 1,000 ML IV STA (21:05)
--- NOTE | 2019-09-20 21:12 | ED ---
Female Urogenital HPI - General Chief complaint: Vaginal Bleeding Stated complaint: Vaginal bleeding , weakness Time Seen by Provider: 09/20/19 20:46 Source: patient Mode of arrival: ambulatory Limitations: no limitations - History of Present Illness Initial comments: Patient is a 19-year-old female presenting to the emergency Department with complaints of vaginal bleeding 2 days. Patient states she is 5 weeks and has not had any vaginal bleeding for the last 2 weeks until 2 days ago. She states she has been having bright red heavy bleeding for the last 2 days and now today she feels fatigued, weak, dizzy if she stands up too fast. She ate also feels like she is not able to hold her child secondary to being so weak. She states she had an emergency due to the baby's arm being stuck. There were no complications after the . She has been recovering well. Her OVEN HEATER is Dr. Hawk. She states she is having some lower abdominal cramping, no sharp pains. She denies any pertinent past medical history. This was her first . She denies any recent fever, chills. She does admit to mild nausea, no vomiting or diarrhea. She denies any chest pain or shortness of breath. She has no further complaints at this time. Upon arrival to the ER, patient is tachycardia at 122, rest of vitals are normal. - Related Data Home Medications Medication Instructions Recorded Confirmed No Known Home Medications 09/20/19 09/20/19 Allergies Allergy/AdvReac Type Severity Reaction Status Date / Time amoxicillin Allergy Rash/Hives Verified 09/20/19 22:54 Penicillins Allergy Rash/Hives Verified 09/20/19 22:54 seafood Allergy Swelling Uncoded 08/15/19 06:24 Review of Systems ROS Statement: Those systems with pertinent positive or pertinent negative responses have been documented in the HPI. ROS Other: All systems not noted in ROS Statement are negative. Past Medical History Past Medical History: Asthma Additional Past Medical History / Comment(s): chiari malformation, migraines. History of Any Multi-Drug Resistant Organisms: None Reported Past Surgical History: Adenoidectomy, Ear Surgery, Tonsillectomy Additional Past Surgical History / Comment(s): Chiari malformation repaired Past Anesthesia/Blood Transfusion Reactions: No Reported Reaction Past Psychological History: Anxiety, Depression, PTSD Smoking Status: Former smoker Past Alcohol Use History: None Reported Past Drug Use History: None Reported General Exam - General Exam Comments Initial Comments: GENERAL: Patient appears fatigued, in no acute distress. HEAD: Atraumatic, normocephalic. EYES: Pupils equal round and reactive to light, extraocular movements intact, sclera anicteric, conjunctiva are normal. ENT: TMs normal, nares patent, oropharynx clear without exudates. Moist mucous mem branes. NECK: Normal range of motion, supple without lymphadenopathy or JVD. LUNGS: Breath sounds clear to auscultation bilaterally and equal. No wheezes rales or rhonchi. HEART: Regular rate and rhythm without murmurs, rubs or gallops. ABDOMEN: Soft, nontender, normoactive bowel sounds. No guarding, no rebound. No masses appreciated. : Normal external exam, very mild vaginal bleeding, no hemorrhage. No other abnormal findings EXTREMITIES: Normal range of motion, no pitting or edema. No clubbing or cyanosis. NEUROLOGICAL: Normal speech, normal gait. PSYCH: Normal mood, normal affect. SKIN: Warm, Dry, normal turgor, no rashes or lesions noted. Limitations: no limitations Course Vital Signs 09/20/19 09/20/19 20:19 23:23 Temperature 98.5 F 98.0 F Pulse Rate 122 H 75 Respiratory 18 18 Rate Blood Pressure 116/71 127/78 O2 Sat by Pulse 99 98 Oximetry Medical Decision Making - Medical Decision Making Patient is a 19-year-old female, 5 weeks presenting with 2 days of vaginal bleeding. Her OVEN HEATER is Dr. Hawk. Patient was slightly tachycardia upon arrival however she was anxious, her vitals have been stable in the ER. Lab work shows a normal hemoglobin at 12.3, rest of labs are normal. Patient's urine shows no signs of infection, urine hCG is negative. Ultrasound reveals no significant findings, normal uterus. She was given fluids, states improvement in her symptoms. I discussed these findings with the patient. She is stable for discharge. I recommended following up with Dr. Hawk. Patient is agreement with this plan of care. Return parameters were discussed with the patient and she verbalized understanding. Case discussed with Dr. Eugene. - Lab Data Result diagrams: 09/20/19 21:00 09/20/19 21:06 Lab Results 09/20/19 09/20/19 09/20/19 Range/Units 21:00 21:00 21:06 WBC 7.4 (4.0-11.0) k/uL RBC 5.01 (3.80-5.40) m/uL Hgb 12.3 D (11.4-16.0) gm/dL Hct 38.0 (34.0-46.0) % MCV 75.9 L (80.0-100.0) fL MCH 24.5 L (25.0-35.0) pg MCHC 32.3 (31.0-37.0) g/dL RDW 16.1 H (11.5-15.5) % Plt Count 275 (150-450) k/uL Neutrophils % 49 % Lymphocytes % 41 % Monocytes % 6 % Eosinophils % 2 % Basophils % 1 % Neutrophils # 3.6 (1.3-7.7) k/uL Lymphocytes # 3.0 (1.0-4.8) k/uL Monocytes # 0.5 (0-1.0) k/uL Eosinophils # 0.2 (0-0.7) k/uL Basophils # 0.0 (0-0.2) k/uL Hypochromasia Moderate Anisocytosis Slight Microcytosis Slight Sodium 140 (137-145) mmol/L Potassium 4.6 (3.5-5.1) mmol/L Chloride 106 (98-107) mmol/L Carbon Dioxide 23 (22-30) mmol/L Anion Gap 11 mmol/L BUN 12 (7-17) mg/dL Creatinine 0.76 (0.52-1.04) mg/dL Est GFR (CKD-EPI)AfAm >90 (>60 ml/min/1.73 sqM) Est GFR (CKD-EPI)NonAf >90 (>60 ml/min/1.73 sqM) Glucose 105 H (74-99) mg/dL Calcium 9.6 (8.4-10.2) mg/dL Total Bilirubin 0.3 (0.2-1.3) mg/dL AST 31 (14-36) U/L ALT 21 (4-34) U/L Alkaline Phosphatase 120 (38-126) U/L Total Protein 7.4 (6.3-8.2) g/dL Albumin 4.3 (3.5-5.0) g/dL Urine Color Urine Appearance (Clear) Urine pH (5.0-8.0) Ur Specific [place] (1.001-1.035) Urine Protein (Negative) Urine Glucose (UA) (Negative) Urine Ketones (Negative) Urine Blood (Negative) Urine Nitrite (Negative) Urine Bilirubin (Negative) Urine Urobilinogen (<2.0) mg/dL Ur Leukocyte Esterase (Negative) Urine RBC (0-5) /hpf Urine WBC (0-5) /hpf Ur Squamous Epith Cells (0-4) /hpf Urine Bacteria (None) /hpf Urine Mucus (None) /hpf Urine HCG, Qual (Not Detectd) Blood Type A Negative Blood Type Recheck A Neg Bld Type Recheck Status No Antibody Screen POSITIVE Antibody Identification Anti-D Direct Antiglob Test Negative Spec Expiration Date 09/23/2019 - 229909/20/19 09/20/19 Range/Units 21:13 21:13 WBC (4.0-11.0) k/uL RBC (3.80-5.40) m/uL Hgb (11.4-16.0) gm/dL Hct (34.0-46.0) % MCV (80.0-100.0) fL MCH (25.0-35.0) pg MCHC (31.0-37.0) g/dL RDW (11.5-15.5) % Plt Count (150-450) k/uL Neutrophils % % Lymphocytes % % Monocytes % % Eosinophils % % Basophils % % Neutrophils # (1.3-7.7) k/uL Lymphocytes # (1.0-4.8) k/uL Monocytes # (0-1.0) k/uL Eosinophils # (0-0.7) k/uL Basophils # (0-0.2) k/uL Hypochromasia Anisocytosis Microcytosis Sodium (137-145) mmol/L Potassium (3.5-5.1) mmol/L Chloride (98-107) mmol/L Carbon Dioxide (22-30) mmol/L Anion Gap mmol/L BUN (7-17) mg/dL Creatinine (0.52-1.04) mg/dL Est GFR (CKD-EPI)AfAm (>60 ml/min/1.73 sqM) Est GFR (CKD-EPI)NonAf (>60 ml/min/1.73 sqM) Glucose (74-99) mg/dL Calcium (8.4-10.2) mg/dL Total Bilirubin (0.2-1.3) mg/dL AST (14-36) U/L ALT (4-34) U/L Alkaline Phosphatase (38-126) U/L Total Protein (6.3-8.2) g/dL Albumin (3.5-5.0) g/dL Urine Color Yellow Urine Appearance Clear (Clear) Urine pH 5.5 (5.0-8.0) Ur Specific [place] 1.031 (1.001-1.035) Urine Protein Trace H (Negative) Urine Glucose (UA) Negative (Negative) Urine Ketones Trace H (Negative) Urine Blood Moderate H (Negative) Urine Nitrite Negative (Negative) Urine Bilirubin Negative (Negative) Urine Urobilinogen <2.0 (<2.0) mg/dL Ur Leukocyte Esterase Negative (Negative) Urine RBC >182 H (0-5) /hpf Urine WBC 5 (0-5) /hpf Ur Squamous Epith Cells <1 (0-4) /hpf Urine Bacteria Rare H (None) /hpf Urine Mucus Moderate H (None) /hpf Urine HCG, Qual Not Detected (Not Detectd) Blood Type Blood Type Recheck Bld Type Recheck Status Antibody Screen Antibody Identification Direct Antiglob Test Spec Expiration Date Disposition Clinical Impression: Vaginal bleeding, Light-headed feeling Disposition: HOME SELF-CARE Condition: Stable Instructions (If sedation given, give patient instructions): Bl eeding (ED) Additional Instructions: Please return to the Emergency Department if symptoms worsen or any other concerns. Continue to increase fluid intake. Follow up with OVEN HEATER as discussed. Is patient prescribed a controlled substance at d/c from ED?: No Referrals: Nicole Howard MD [Primary Care Provider] - 1-2 days Gini Hawk DO [Doctor of Osteopathic Medicine] - 1-2 days
[2019-09-20 21:23] LABS: ALT 21 U/L (4-34); AST 31 U/L (14-36); African American GFR (CKD) >90 (>60 ml/min/1.73 sqM); Albumin 4.3 g/dL (3.5-5.0); Alkaline Phosphatase 120 U/L (38-126); Anion Gap 11 mmol/L; Blood Urea Nitrogen 12 mg/dL (7-17); Calcium 9.6 mg/dL (8.4-10.2); Carbon Dioxide 23 mmol/L (22-30); Chloride 106 mmol/L (98-107); Glucose 105 mg/dL (74-99); Non-African American GFR(CKD) >90 (>60 ml/min/1.73 sqM); Potassium 4.6 mmol/L (3.5-5.1); Sodium 140 mmol/L (137-145); Total Bilirubin 0.3 mg/dL (0.2-1.3); Total Protein 7.4 g/dL (6.3-8.2)
[2019-09-20 21:30] LABS: Appearance,Urine Clear (Clear); Bacteria,Urine Rare /hpf; Bilirubin,Urine Negative (Negative); Blood,Urine Moderate (Negative); Color,Urine Yellow; Glucose,Urine (UA) Negative (Negative); Ketones,Urine Trace (Negative); Leukocyte Esterase,Urine Negative (Negative); Mucus,Urine Moderate /hpf; Nitrite,Urine Negative (Negative); PH, Urine 5.5 (5.0-8.0); Protein,Urine Trace (Negative); RBC,Urine >182 /hpf (0-5); Specific Gravity,Urine 1.031 (1.001-1.035); Squamous Epithelial Cell,Urine <1 /hpf (0-4); Urobilinogen,Urine <2.0 mg/dL (<2.0); WBC,Urine 5 /hpf (0-5)
[2019-09-20 21:43] LABS: Anisocytosis Slight; Basophils % (A) 1 %; Eosinophils # (A) 0.2 k/uL (0-0.7); Eosinophils % (A) 2 %; Hypochromasia Moderate; Lymphocytes % (A) 41 %; MCH 24.5 pg (25.0-35.0); MCHC 32.3 g/dL (31.0-37.0); MCV 75.9 fL (80.0-100.0); Mean Platelet Volume 7.4; Microcytosis Slight; Monocytes # (A) 0.5 k/uL (0-1.0); Monocytes % (A) 6 %; Neutrophils # (A) 3.6 k/uL (1.3-7.7); Neutrophils % (A) 49 %; Platelet Count 275 k/uL (150-450); RBC 5.01 m/uL (3.80-5.40); RDW 16.1 % (11.5-15.5); WBC 7.4 k/uL (4.0-11.0)
[2019-09-20 21:49] LABS: HGB 12.3 gm/dL (11.4-16.0)
--- NOTE | 2019-09-20 22:17 | US ---
EXAMINATION TYPE: US pelvis complete transvag DATE OF EXAM: 09/20/2019 COMPARISON: NONE CLINICAL HISTORY: 5 weeks , heavy vaginal bleeding. 5 weeks , heavy vaginal bleed ing. . . TECHNIQUE: Transvaginal (TV) and Transabdominal (TA) . Transabdominal sonographic images of the pel vis were acquired. Transvaginal sonographic images were medically necessary to better assess the fol lowing anatomy: uterus and ovaries. Date of LMP: Unknown EXAM MEASUREMENTS: Uterus: 8.4 x 6.4 x 4.6 cm Endometrial Stripe: 0.45 cm Right Ovary: 3.3 x 1.8 x 2.3 cm Left Ovary: 3.9 x 2.4 x 1.3 cm 1. Uterus: Retroverted Appears wnl 2. Endometrium: Appears wnl 3. Right Ovary: Follicles seen 4. Left Ovary: Anechoic area seen: 1.5 x 1.2 x 1.0 cm. Measures slightly enlarged. No Doppler of ovaries necessary per ordering physician 5. Bilateral Adnexa: Appear wnl 6. Posterior cul-de-sac: Fluid seen IMPRESSION: There is small amount of fluid in the cul-de-sac that is probably physiologic. No solid adnexal mass or free fluid. Normal uterus.
[2019-09-20 23:24] VITALS: BP 127/78; PULSE 75; TEMP 98
== END 2019-09-20 23:34 | disposition home or self-care (01) ==
LOC: EC 20:13
DX: N93.9 Abnormal uterine and vaginal bleeding, unspecified (principal); R42 Dizziness and giddiness; R00.0 Tachycardia, unspecified; Z88.0 Allergy status to penicillin; Z91.013 Allergy to seafood; Z87.891 Personal history of nicotine dependence
CPT/HCPCS: 36415; 76830; 76856; 80053; 81001; 81025; 85025; 86850; 86870; 86880; 86900; 86901; 96360; 99284

== ENCOUNTER 2019-12-31 21:29 | Emergency (ER) | payer OTHER ==
[2019-12-31 21:35] VITALS: BP 105/60; PULSE 107; RESP 18; TEMP 98.3
--- NOTE | 2019-12-31 21:51 | ED ---
Female Urogenital HPI - General Chief complaint: Urogenital Stated complaint: Poss UTI Time Seen by Provider: 12/31/19 21:36 Source: patient, RN notes reviewed, old records reviewed Mode of arrival: ambulatory Limitations: no limitations - History of Present Illness Initial comments: Patient is a 19-year-old female who presents emergency Department to 3 days of dysuria, polyuria. Concern for UTI. She denies a significant flank pain. She does report lower abdominal cramping. Patient states that she is 4 months . Patient states that she has no vaginal bleeding or discharge. Patient states that she no nausea or vomiting. She reports some chills but no fever. Last Menstrual Period: 12/03/19 - Related Data Previous Rx's Medication Instructions Recorded Phenazopyridine [Pyridium] 100 mg PO TID #9 tablet 12/31/19 Sulfamethox-Tmp 800-160Mg [Bactrim 1 tab PO Q12HR #14 tab 12/31/19 DS 800-160 mg] Allergies Allergy/AdvReac Type Severity Reaction Status Date / Time amoxicillin Allergy Rash/Hives Verified 12/31/19 21:35 Penicillins Allergy Rash/Hives Verified 12/31/19 21:35 seafood Allergy Swelling Uncoded 12/31/19 21:35 Review of Systems ROS Statement: Those systems with pertinent positive or pertinent negative responses have been documented in the HPI. ROS Other: All systems not noted in ROS Statement are negative. Past Medical History Past Medical History: Asthma Additional Past Medical History / Comment(s): chiari malformation, migraines. History of Any Multi-Drug Resistant Organisms: None Reported Past Surgical History: Adenoidectomy, Section, Ear Surgery, Tonsillectomy Additional Past Surgical History / Comment(s): Chiari malformation repaired Past Anesthesia/Blood Transfusion Reactions: No Reported Reaction Past Psychological History: Anxiety, Depression, PTSD Smoking Status: Former smoker Past Alcohol Use History: None Reported Past Drug Use History: None Reported General Exam - General Exam Comments Initial Comments: Pleasant 19-year-old female. No distress. Limitations: no limitations General appearance: alert, in no apparent distress Head exam: Present: atraumatic, normocephalic, normal inspection Eye exam: Present: normal appearance, PERRL, EOMI. Absent: scleral icterus, conjunctival injection, periorbital swelling ENT exam: Present: normal exam, mucous membranes moist Neck exam: Present: normal inspection. Absent: tenderness, meningismus, lymphadenopathy Respiratory exam: Present: normal lung sounds bilaterally. Absent: respiratory distress, wheezes, rales, rhonchi, stridor Cardiovascular Exam: Present: regular rate, normal rhythm, normal heart sounds. Absent: systolic murmur, diastolic murmur, rubs, gallop, clicks GI/Abdominal exam: Present: soft, normal bowel sounds. Absent: distended, tenderness, guarding, rebound, rigid Extremities exam: Present: normal inspection, full ROM, normal capillary refill. Absent: tenderness, pedal edema, joint swelling, calf tenderness Back exam: Present: normal inspection Neurological exam: Present: alert, oriented X3, CN II-XII intact Psychiatric exam: Present: normal affect, normal mood Skin exam: Present: warm, dry, intact, normal color. Absent: rash Course Vital Signs 12/31/19 21:32 Temperature 98.3 F Pulse Rate 107 H Respiratory 18 Rate Blood Pressure 105/60 O2 Sat by Pulse 97 Oximetry Medical Decision Making - Medical Decision Making 19-year-old female presents emergency department today for concern for dysuria or polyuria. She is asleep she is UTI. She has no flank pain. She has mild fever tenderness. No vaginal discharge. Patient's show evidence of UTI. Urine culture be completed. We'll start the Patient on antibiotics and Pyridium. Discussed return parameters. - Lab Data Lab Results 12/31/19 12/31/19 Range/Units 21:38 21:50 Urine Color Dark Yellow Urine Appearance Cloudy H (Clear) Urine pH 6.0 (5.0-8.0) Ur Specific [place] 1.039 H (1.001-1.035) Urine Protein 2+ H (Negative) Urine Glucose (UA) Negative (Negative) Urine Ketones Trace H (Negative) Urine Blood Large H (Negative) Urine Nitrite Negative (Negative) Urine Bilirubin Negative (Negative) Urine Urobilinogen 2.0 (<2.0) mg/dL Ur Leukocyte Esterase Large H (Negative) Urine RBC >182 H (0-5) /hpf Urine WBC 118 H (0-5) /hpf Ur Squamous Epith Cells 13 H (0-4) /hpf Urine Mucus Many H (None) /hpf Urine HCG, Qual Not Detected (Not Detectd) Disposition Clinical Impression: UTI (urinary tract infection) Disposition: HOME SELF-CARE Condition: Good Instructions (If sedation given, give patient instructions): Urinary Tract Infection in Women (ED) Additional Instructions: Please use medication as discussed. Please follow up with family doctor if symptoms have not improved over the next two days. Please return to the emergency room if your symptoms increase or worsen or for any other concerns. Prescriptions: Sulfamethox-Tmp 800-160Mg [Bactrim DS 800-160 mg] 1 tab PO Q12HR #14 tab Phenazopyridine [Pyridium] 100 mg PO TID #9 tablet Is patient prescribed a controlled substance at d/c from ED?: No Referrals: Daren Joel MD [Primary Care Provider] - 1-2 days Time of Disposition: 22:26
[2019-12-31 21:55] LABS: Appearance,Urine Cloudy (Clear); Bilirubin,Urine Negative (Negative); Blood,Urine Large (Negative); Color,Urine Dark Yellow; Glucose,Urine (UA) Negative (Negative); Ketones,Urine Trace (Negative); Leukocyte Esterase,Urine Large (Negative); Mucus,Urine Many /hpf; Nitrite,Urine Negative (Negative); Protein,Urine 2+ (Negative); RBC,Urine >182 /hpf (0-5); Specific Gravity,Urine 1.039 (1.001-1.035); Squamous Epithelial Cell,Urine 13 /hpf (0-4); WBC,Urine 118 /hpf (0-5)
[2019-12-31] MEDS ORDERED: SULFAMETH-TMP DS STARTER PACK 2 TAB BTL PO STA (22:25)
[2019-12-31] MEDS ORDERED: PHENAZOPYRIDINE 100 MG TAB PO ONE (22:30)
== END 2019-12-31 22:36 | disposition home or self-care (01) ==
LOC: EC 21:29
DX: N39.0 Urinary tract infection, site not specified (principal); Z88.0 Allergy status to penicillin; Z91.018 Allergy to other foods; Z87.891 Personal history of nicotine dependence
CPT/HCPCS: 81001; 81025; 87086; 99284

== ENCOUNTER 2020-06-16 11:33 | Emergency (ER) | payer OTHER ==
[2020-06-16 13:43] VITALS: TEMP 98.6
[2020-06-16] MEDS ORDERED: KETOROLAC 15 MG/ML 1 ML VIAL IVP STA (15:26)
[2020-06-16] MEDS ORDERED: diphenhydrAMINE 50 MG/ML 1 ML VIAL IVP STA (15:26)
[2020-06-16] MEDS ORDERED: ONDANSETRON 4 MG/2 ML VIAL IVP STA (15:26)
[2020-06-16] MEDS ORDERED: SODIUM CHLORIDE 0.9% 1,000 ML IV STA (15:26)
--- NOTE | 2020-06-16 15:35 | ED ---
General Adult HPI - General Chief complaint: Headache Stated complaint: Headache Time Seen by Provider: 06/16/20 15:01 Source: patient Mode of arrival: ambulatory Limitations: no limitations - History of Present Illness Initial comments: Dictation was produced using [employer] dictation software. please excuse any grammatical, word or spelling errors. This patient was cared for during a federal and state declared state of emergency secondary to Covid 19 Chief Complaint: 20-year-old female presents to the emergency department for headache History of Present Illness: 20-year-old female she has past medical history of headaches. Patient gets chronic headaches for the last several years. Patient has history of Chiari malformation status post decompression procedure performed by Dr. Garcia [facility]. Patient states she lives with head discomfort almost daily. She does have established care with a neurologist. Patient was diagnosed with pseudotumor cerebri and 2018 after having had the decompression procedure. Patient states she has not had a lumbar puncture and CSF drainage since 2018. She states she hasn't been scheduled to have any of that performed. She has been referred to a new neurologist. Patient has any vision changes. She is 10 months . She is on oral contraceptives. She is not breast-feeding. She denies . States medications for pseudotumor cerebri. She has an appointment with a neurologist in the near future. No fevers, no neck stiffness no neuro deficits. He states that her headache is similar to her usual headaches. It's bifrontal and very mild. She does not stated severe. She states she is only here for some relief. The ROS documented in this emergency department record has been reviewed and confirmed by me. Those systems with pertinent positive or negative responses have been documented in the HPI. All other systems are other negative and/or noncontributory. PHYSICAL EXAM: General Impression: Alert and oriented x3, not in acute distress HEENT: Normocephalic atraumatic, extra-ocular movements intact, pupils equal and reactive to light bilaterally, mucous membranes moist. Cardiovascular: Heart regular rate and rhythm Chest: Able to complete full sentences, no retractions, no tachypnea Abdomen: abdomen soft, non-tender, non-distended, no organomegaly Musculoskeletal: Pulses present and equal in all extremities, no peripheral edema Motor: no focal deficits noted Neurological: CN II-XII grossly intact, no focal motor or sensory deficits noted Skin: Intact with no visualized rashes Psych: Normal affect and mood ED course: 20-year-old female with chief complaint of headache vital signs upon arrival are within acceptable limits. Patient's well-appearing at bedside. Discussed with patient that she has not had a CSF drainage procedure in several years and the only way to see if she is having increased CSF fluid is for us to the lumbar puncture. She does not want to have the lumbar puncture performed. She just wants headache medications and wants to be discharged. Discussed the patient that if we do not do this procedure she may have worsening vision loss per she states that she rather range for this procedure to be performed on an outpatient basis with consultation to neurology. She understands risks of not perform this procedure. She does appear well and in no acute distress. She has no complaints of vision loss or neuro deficits. Patient given headache cocktail and will be discharged. She understands that she needs to follow up as soon as possible with her neurologist. Return parameters discussed. - Related Data Previous Rx's Medication Instructions Recorded Phenazopyridine [Pyridium] 100 mg PO TID #9 tablet 12/31/19 Sulfamethox-Tmp 800-160Mg [Bactrim 1 tab PO Q12HR #14 tab 12/31/19 DS 800-160 mg] Allergies Allergy/AdvReac Type Severity Reaction Status Date / Time amoxicillin Allergy Rash/Hives Verified 06/16/20 13:42 Penicillins Allergy Rash/Hives Verified 06/16/20 13:42 seafood Allergy Swelling Uncoded 06/16/20 13:42 Review of Systems ROS Statement: Those systems with pertinent positive or pertinent negative responses have been documented in the HPI. ROS Other: All systems not noted in ROS Statement are negative. Past Medical History Past Medical History: Asthma Additional Past Medical History / Comment(s): chiari malformation, migraines. History of Any Multi-Drug Resistant Organisms: None Reported Past Surgical History: Adenoidectomy, Section, Ear Surgery, Tonsillectomy Additional Past Surgical History / Comment(s): Chiari malformation repaired Past Anesthesia/Blood Transfusion Reactions: No Reported Reaction Past Psychological History: Anxiety, Depression, PTSD Smoking Status: Former smoker Past Alcohol Use History: None Reported Past Drug Use History: None Reported General Exam Limitations: no limitations Course Vital Signs 06/16/20 13:39 Temperature 98.6 F Pulse Rate 87 Respiratory 18 Rate Blood Pressure 107/70 O2 Sat by Pulse 100 Oximetry Disposition Clinical Impression: Headache, Pseudotumor cerebri Disposition: HOME SELF-CARE Condition: Fair Instructions (If sedation given, give patient instructions): Acute Headache (ED) Additional Instructions: It is important that you follow up with her neurologist on a timely basis. Please return to the emergency department if you have any worsening symptoms including worsening headache, vision loss or any neurologic deficits. Is patient prescribed a controlled substance at d/c from ED?: No Referrals: Daren Joel MD [Primary Care Provider] - 1-2 days Time of Disposition: 15:43
[2020-06-16 16:09] VITALS: BP 84/52; PULSE 73; RESP 16
== END 2020-06-16 16:09 | disposition home or self-care (01) ==
LOC: EC 11:33
DX: G93.2 Benign intracranial hypertension (principal); J45.909 Unspecified asthma, uncomplicated; F41.9 Anxiety disorder, unspecified; F32.9 Major depressive disorder, single episode, unspecified; Z87.891 Personal history of nicotine dependence; Z88.0 Allergy status to penicillin
CPT/HCPCS: 99283; 96374; 96375 ×2; 96361; J1200; J2405; J1885

== ENCOUNTER 2020-06-20 05:04 | Emergency (ER) | payer OTHER ==
[2020-06-20 05:11] VITALS: BP 114/73; PULSE 102; RESP 18; TEMP 98.1
--- NOTE | 2020-06-20 05:13 | ED ---
URI HPI - General Chief Complaint: ENT Stated Complaint: SOB,Covid exposure Time Seen by Provider: 06/20/20 05:10 Source: patient, RN notes reviewed, old records reviewed Mode of arrival: wheelchair Limitations: no limitations - History of Present Illness MD Complaint: fever, cough, sore throat -: days(s) Severity: mild Severity scale (1-10): 3 Consistency: constant Improves With: nothing Worsens With: nothing Context: sick contacts Associated Symptoms: fever, myalgias, sore throat Treatments Prior to Arrival: none - Related Data Previous Rx's Medication Instructions Recorded Phenazopyridine [Pyridium] 100 mg PO TID #9 tablet 12/31/19 Sulfamethox-Tmp 800-160Mg [Bactrim 1 tab PO Q12HR #14 tab 12/31/19 DS 800-160 mg] Allergies Allergy/AdvReac Type Severity Reaction Status Date / Time amoxicillin Allergy Rash/Hives Verified 06/20/20 05:08 Penicillins Allergy Rash/Hives Verified 06/20/20 05:08 seafood Allergy Swelling Uncoded 06/20/20 05:08 Review of Systems ROS Statement: Those systems with pertinent positive or pertinent negative responses have been documented in the HPI. ROS Other: All systems not noted in ROS Statement are negative. Past Medical History Past Medical History: Asthma Additional Past Medical History / Comment(s): chiari malformation, migraines. History of Any Multi-Drug Resistant Organisms: None Reported Past Surgical History: Adenoidectomy, Section, Ear Surgery, Tonsillectomy Additional Past Surgical History / Comment(s): Chiari malformation repaired Past Anesthesia/Blood Transfusion Reactions: No Reported Reaction Past Psychological History: Anxiety, Depression, PTSD Smoking Status: Former smoker Past Alcohol Use History: None Reported Past Drug Use History: None Reported General Exam Limitations: no limitations General appearance: alert, in no apparent distress Head exam: Present: atraumatic, normocephalic, normal inspection Eye exam: Present: normal appearance, PERRL, EOMI. Absent: scleral icterus, conjunctival injection, periorbital swelling ENT exam: Present: normal exam, mucous membranes moist Neck exam: Present: normal inspection. Absent: tenderness, meningismus, lymph adenopathy Respiratory exam: Present: normal lung sounds bilaterally. Absent: respiratory distress, wheezes, rales, rhonchi, stridor Cardiovascular Exam: Present: normal rhythm, tachycardia, normal heart sounds. Absent: systolic murmur, diastolic murmur, rubs, gallop, clicks GI/Abdominal exam: Present: soft, normal bowel sounds. Absent: distended, tenderness, guarding, rebound, rigid Extremities exam: Present: normal inspection, full ROM, normal capillary refill. Absent: tenderness, pedal edema, joint swelling, calf tenderness Back exam: Present: normal inspection Neurological exam: Present: alert, oriented X3, CN II-XII intact Psychiatric exam: Present: normal affect, normal mood Skin exam: Present: warm, dry, intact, normal color. Absent: rash Course Vital Signs 06/20/20 05:08 Temperature 98.1 F Pulse Rate 102 H Respiratory 18 Rate Blood Pressure 114/73 O2 Sat by Pulse 100 Oximetry Medical Decision Making - Lab Data Lab Results 06/20/20 06/20/20 Range/Units 05:32 05:34 Coronavirus (PCR) Detected A (Not Detectd) Group A Strep Rapid Negative (Negative) Disposition Clinical Impression: Coronavirus infection, Fever Disposition: HOME SELF-CARE Condition: Good Instructions (If sedation given, give patient instructions): Coronavirus Disease 2019 (COVID-19) Is patient prescribed a controlled substance at d/c from ED?: No Referrals: Daren Joel MD [Primary Care Provider] - 1-2 days
[2020-06-20] MEDS ORDERED: KETOROLAC 15 MG/ML 1 ML VIAL IM STA (06:10)
[2020-06-20] MEDS ORDERED: dexAMETHasone 4 MG TAB PO STA (06:10)
[2020-06-20] MEDS ORDERED: ACETAMINOPHEN TAB 500 MG TAB PO STA (06:10)
--- NOTE | 2020-06-20 06:45 | XR ---
EXAM: XR Chest, 1 View CLINICAL HISTORY: ITS.REASON XR Reason: COVID+ TECHNIQUE: Frontal view of the chest. COMPARISON: No relevant prior studies available. FINDINGS: Lungs: Unremarkable. No consolidation. Pleural space: Unremarkable. No pneumothorax. Heart: Unremarkable. No cardiomegaly. Mediastinum: Unremarkable. Bones/joints: Unremarkable. IMPRESSION: No focal infiltrate.
== END 2020-06-20 07:03 | disposition home or self-care (01) ==
LOC: EC 05:04
DX: U07.1 COVID-19 (principal); J45.909 Unspecified asthma, uncomplicated; F41.9 Anxiety disorder, unspecified; F32.9 Major depressive disorder, single episode, unspecified; Z87.891 Personal history of nicotine dependence; Z88.0 Allergy status to penicillin
CPT/HCPCS: 87081; 87430; 87635; 71045; 99285; 96372; J8540; J1885

== ENCOUNTER 2020-07-26 12:41 | Inpatient (IN) | payer OTHER ==
--- NOTE | 2020-07-26 13:12 | ED ---
Neuro HPI - General Chief Complaint: Dizziness Stated Complaint: Dizziness/L eye loss vision/Right side weird Time Seen by Provider: 07/26/20 12:51 Source: patient Mode of arrival: wheelchair Limitations: no limitations - History of Present Illness Is the patient presenting with stroke symptoms?: Yes Last Known Well Date: 07/26/20 Last Known Well Time: 11:45 Initial Comments: Is a 20-year-old female with a history of Chiari malformation status post decompression in 2018 and chronic headaches who presents emergency department for sudden onset of dizziness, left sided visual changes, right-sided heaviness and unsteadiness with gait. The patient states that she was not doing anything in particular or lifting anything heavy at the time. She states that she turned her head and suddenly got dizzy. She developed a headache that is bifrontal and radiates down the right side into her right neck. She states it's an 8 out of 10. She states that she has some associated blurred vision currently however did have some which she describes as a loss of vision in the left lower visual quadrant of the left I. She states that that has seemed to resolve but she has persistent haziness in that left eye. She states if she moves her neck then she tends to get the symptoms again. She admits to feeling some heaviness on the right side of her body in her right arm and leg however when I asked her more about this she states that it just feels like she is falling to that side when she walks. She also admits to right-sided facial numbness and decreased sensation when compared to the left. She denies any weakness in the left side. No difficulty with speech or swallowing. She states that the symptoms are not consistent with her chronic headaches. No other acute complaints. - Related Data Home Medications: Home Medications Medication Instructions Recorded Confirmed Escitalopram [Lexapro] 5 mg PO HS 07/26/20 07/26/20 Norethindrone-E.estradiol-Iron 1 tab PO HS 07/26/20 07/26/20 [Aurovela Fe 1.5 mg-30 Mcg Tab] acetaZOLAMIDE [acetaZOLAMIDE ER] 500 mg PO BID 07/26/20 07/26/20 Allergies/Adverse Reactions: Allergies Allergy/AdvReac Type Severity Reaction Status Date / Time amoxicillin Allergy Rash/Hives Verified 07/26/20 13:49 Penicillins Allergy Rash/Hives Verified 07/26/20 13:49 seafood Allergy Swelling Uncoded 07/26/20 12:47 Review of Systems ROS Statement: Those systems with pertinent positive or pertinent negative responses have been documented in the HPI. ROS Other: All systems not noted in ROS Statement are negative. General Exam - General Exam Comments Initial Comments: Constitutional: Awake alert Appears comfortable Head: Normocephalic atraumatic Eyes: no conjunctival injection No scleral icterus , pupils are 4 mm and reactive bilaterally, extra muscles are intact, visual luis checked in each eye seem to be intact however the patient did have difficulty with the left lower quadrant of the left eye Neck: No JVD Supple Heart: Regular rate rhythm normal S1-S2 no murmurs Lungs: Clear to auscultation bilaterally No wheezing No rales Abdomen: Soft nondistended nontender Extremities: Non edematous DP pulses intact Radial pulses intact Neuro: A&Ox3, there is no facial droop patient reports decreased sensation in the V2 distribution on the right, she has equal neck turning, equal shoulder shrugging, 5 out of 5 strength in upper extremities 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 Sensation intact in all extremity, normal speech No focal neurologic deficits Psych: Appropriate mood and affect Limitations: no limitations Stroke MDM - Lab Data Result diagrams: 07/26/20 13:00 07/26/20 13:00 Lab Results 07/26/20 07/26/20 07/26/20 Range/Units 13:00 13:00 13:00 WBC 6.1 (3.8-10.6) k/uL RBC 5.16 (3.80-5.40) m/uL Hgb 14.9 (11.4-16.0) gm/dL Hct 43.8 (34.0-46.0) % MCV 85.0 (80.0-100.0) fL MCH 29.0 (25.0-35.0) pg MCHC 34.1 (31.0-37.0) g/dL RDW 13.7 (11.5-15.5) % Plt Count 225 (150-450) k/uL MPV 7.0 Neutrophils % 45 % Lymphocytes % 44 % Monocytes % 6 % Eosinophils % 2 % Basophils % 1 % Neutrophils # 2.7 (1.3-7.7) k/uL Lymphocytes # 2.7 (1.0-4.8) k/uL Monocytes # 0.4 (0-1.0) k/uL Eosinophils # 0.1 (0-0.7) k/uL Basophils # 0.1 (0-0.2) k/uL PT 10.6 (9.0-12.0) sec INR 1.0 (<1.2) APTT 23.3 (22.0-30.0) sec Sodium 141 (137-145) mmol/L Potassium 4.1 (3.5-5.1) mmol/L Chloride 110 H (98-107) mmol/L Carbon Dioxide 24 (22-30) mmol/L Anion Gap 7 mmol/L BUN 11 (7-17) mg/dL Creatinine 0.78 (0.52-1.04) mg/dL Est GFR (CKD-EPI)AfAm >90 (>60 ml/min/1.73 sqM) Est GFR (CKD-EPI)NonAf >90 (>60 ml/min/1.73 sqM) Glucose 83 (74-99) mg/dL Calcium 9.3 (8.4-10.2) mg/dL Total Bilirubin 0.7 (0.2-1.3) mg/dL AST 24 (14-36) U/L ALT 13 (4-34) U/L Alkaline Phosphatase 63 (38-126) U/L Troponin I (0.000-0.034) ng/mL Total Protein 7.1 (6.3-8.2) g/dL Albumin 4.1 (3.5-5.0) g/dL 07/26/20 Range/Units 13:00 WBC (3.8-10.6) k/uL RBC (3.80-5.40) m/uL Hgb (11.4-16.0) gm/dL Hct (34.0-46.0) % MCV (80.0-100.0) fL MCH (25.0-35.0) pg MCHC (31.0-37.0) g/dL RDW (11.5-15.5) % Plt Count (150-450) k/uL MPV Neutrophils % % Lymphocytes % % Monocytes % % Eosinophils % % Basophils % % Neutrophils # (1.3-7.7) k/uL Lymphocytes # (1.0-4.8) k/uL Monocytes # (0-1.0) k/uL Eosinophils # (0-0.7) k/uL Basophils # (0-0.2) k/uL PT (9.0-12.0) sec INR (<1.2) APTT (22.0-30.0) sec Sodium (137-145) mmol/L Potassium (3.5-5.1) mmol/L Chloride (98-107) mmol/L Carbon Dioxide (22-30) mmol/L Anion Gap mmol/L BUN (7-17) mg/dL Creatinine (0.52-1.04) mg/dL Est GFR (CKD-EPI)AfAm (>60 ml/min/1.73 sqM) Est GFR (CKD-EPI)NonAf (>60 ml/min/1.73 sqM) Glucose (74-99) mg/dL Calcium (8.4-10.2) mg/dL Total Bilirubin (0.2-1.3) mg/dL AST (14-36) U/L ALT (4-34) U/L Alkaline Phosphatase (38-126) U/L Troponin I <0.012 (0.000-0.034) ng/mL Total Protein (6.3-8.2) g/dL Albumin (3.5-5.0) g/dL - NIH Stroke Scale 1a. Level of Consciousness: (0) alert 1b. LOC Questions: (0) answers correctly 1c. LOC Commands: (0) performs tasks correctly 2. Best Gaze: (0) normal 3. Visual: (0) no visual loss 4. Facial Palsy: (0) normal symmetrical movement 5a. Motor Arm Left: (0) no drift 5b. Motor Arm Right: (0) no drift 6a. Motor Leg Left: (0) no drift 6b. Motor Leg Right: (1) drift 7. Limb Ataxia: (0) absent 8. Sensory: (1) mild/moderate sensory loss 9. Best Language: (0) no aphasia 10. Dysarthria: (0) normal 11. Extinction/Inattention: (0) no abnormality - Thrombolytic Inclusion/Exclusion Thrombolytic Inclusion Criteria: Symptom Onset < 4.5 h - Medical Decision Making Is a 20-year-old female who presents emergency department for strokelike symptoms. The patient was evaluated and a code stroke was activated. Patient was immediately taken down to CT and CT angiography. I spoke with Dr. Theodore sharp who is the neurologist on-call who evaluated the CT and CTA who stated that they were unremarkable. He did evaluate the patient and recommended TPA. Patient was given TPA and tolerated this well. The patient did not develop any worsening neurologic symptoms or headache. The patient's NIH remained to however she did state that her facial sensation seemed to be normalizing. The patient is going to be admitted for close monitoring in the ICU setting. Dr. Baca was updated as well as Dr. Howard and they sent the patient for admission. Multiple other studies were ordered at the request of Dr. Baca as well. Past Medical History Past Medical History: Asthma Additional Past Medical History / Comment(s): chiari malformation, migraines. History of Any Multi-Drug Resistant Organisms: None Reported Past Surgical History: Adenoidectomy, Section, Ear Surgery, Tonsillectomy Additional Past Surgical History / Comment(s): Chiari malformation repaired, Past Anesthesia/Blood Transfusion Reactions: No Reported Reaction Past Psychological History: Anxiety, Depression, PTSD Smoking Status: Current every day smoker Past Alcohol Use History: Occasional Past Drug Use History: Marijuana Course Vital Signs 07/26/20 07/26/20 07/26/20 12:43 13:10 13:25 Temperature 98.0 F Pulse Rate 103 H 98 62 Respiratory 18 16 16 Rate Blood Pressure 108/72 105/69 104/64 O2 Sat by Pulse 100 98 100 Oximetry 07/26/20 07/26/20 07/26/20 13:30 13:45 14:00 Temperature Pulse Rate 64 62 69 Respiratory 16 16 16 Rate Blood Pressure 106/63 100/60 100/58 O2 Sat by Pulse 100 100 100 Oximetry 07/26/20 07/26/20 14:15 14:30 Temperature Pulse Rate 61 74 Respiratory 16 16 Rate Blood Pressure 103/61 106/30 O2 Sat by Pulse 100 100 Oximetry - Reevaluation(s) Reevaluation #1: 07/26/20 13:[address] Lang who states CT/CTA appear clean. Is going to evaluate the patient virtually and make final recommendations. Reevaluation #2: 07/26/20 14:01 Dr. Lang recommends TPA at this time and went over risks/benefits and inclusion/exclusion criteria with her. Labs normal. BP ok. Order placed for TPA. States that patient can stay here in ICU setting. 07/26/20 14:27 Reevaluation #3: 07/26/20 14:[address] Joel and Dr. Baca who accept admission to ICU for monitoring. Pts status unchanged at this time. No headache. Put Dr. Olmedo on consultation. Reevaluation #4: 07/26/20 15:14 EKG showing normal sinus rhythm with rate 65. There is no abnormal ST 7 changes or T-wave or QTC is 47. Other intervals normal. No ectopy. Critical Care Time Critical Care Time: Yes Total Critical Care Time: 60 Critical Care Time: Critical care time spent examining the patient and getting history from the patient. Ordering labs and imaging. Dripping labs and imaging. Speaking with consultants. Monitoring the patient multiple times and repeat NIH scores. Disposition Clinical Impression: CVA (cerebral vascular accident) Disposition: ADMITTED IP TO THIS HOSP Condition: Stable Referrals: Daren Joel MD [Primary Care Provider] - 1-2 days - Out of Hospital Transfer - Req. Specs Out of Hospital Transfer - Requested Specifics: Medical ICU
[2020-07-26 13:13] LABS: Basophils # (A) 0.1 k/uL (0-0.2); Basophils % (A) 1 %; Eosinophils # (A) 0.1 k/uL (0-0.7); Eosinophils % (A) 2 %; HCT 43.8 % (34.0-46.0); HGB 14.9 gm/dL (11.4-16.0); Lymphocytes # (A) 2.7 k/uL (1.0-4.8); Lymphocytes % (A) 44 %; MCHC 34.1 g/dL (31.0-37.0); Monocytes # (A) 0.4 k/uL (0-1.0); Monocytes % (A) 6 %; Neutrophils # (A) 2.7 k/uL (1.3-7.7); Neutrophils % (A) 45 %; Platelet Count 225 k/uL (150-450); RBC 5.16 m/uL (3.80-5.40); RDW 13.7 % (11.5-15.5); WBC 6.1 k/uL (3.8-10.6)
[2020-07-26 13:22] LABS: Partial Thromboplastin Time 23.3 sec (22.0-30.0); Prothrombin Time 10.6 sec (9.0-12.0)
[2020-07-26 13:25] LABS: ALT 13 U/L (4-34); AST 24 U/L (14-36); African American GFR (CKD) >90 (>60 ml/min/1.73 sqM); Albumin 4.1 g/dL (3.5-5.0); Alkaline Phosphatase 63 U/L (38-126); Anion Gap 7 mmol/L; Blood Urea Nitrogen 11 mg/dL (7-17); Calcium 9.3 mg/dL (8.4-10.2); Carbon Dioxide 24 mmol/L (22-30); Chloride 110 mmol/L (98-107); Glucose 83 mg/dL (74-99); Non-African American GFR(CKD) >90 (>60 ml/min/1.73 sqM); Potassium 4.1 mmol/L (3.5-5.1); Sodium 141 mmol/L (137-145); Total Bilirubin 0.7 mg/dL (0.2-1.3); Total Protein 7.1 g/dL (6.3-8.2)
--- NOTE | 2020-07-26 13:34 | CT ---
EXAMINATION TYPE: CT brain wo con for TPA DATE OF EXAM: 07/26/2020 COMPARISON: 12/23/2018 INDICATION: CODE STROKE, TERRY, Dizzy, Left eye blurred vision, Chiari malformation DLP: 1102.8 mGycm, Automated exposure control for dose reduction was used. CONTRAST: None CT of the brain is performed utilizing 3 mm thick sections through the posterior fossa and 3 mm thick sections through the remaining calvarium. Study is performed within 24 hours of arrival to the hosp [facility]. No abnormal hyperdensity is present to suggest an acute intracranial hemorrhage. No mass lesion is evident. No acute infarcts are evident. Ventricles and sulci are appropriate for the patient age. Paranasal sinuses and mastoid air cells within the [id number] are clear. Occipital craniotomy is n oted. No cerebellar tonsillar pegging is identified. IMPRESSIONS: 1. No acute intracranial process.
--- NOTE | 2020-07-26 13:42 | XR ---
EXAMINATION TYPE: XR chest 2V DATE OF EXAM: 07/26/2020 COMPARISON: 07-09 INDICATION: Dizziness loss of vision TECHNIQUE: Frontal and lateral views of the chest are obtained. FINDINGS: The heart size is normal. The pulmonary vasculature is normal. The lungs are clear. IMPRESSION: 1. No acute pulmonary process.
[2020-07-26] MEDS ORDERED: Alteplase PER PHARMACY Stroke 1 EACH MISC MISCELLANE PRN (14:00)
[2020-07-26] MEDS ORDERED: ALTEPLASE BOLUS 6 MG in EMPTY SYRINGE 1 SYR IV STA (14:02)
[2020-07-26] MEDS ORDERED: ALTEPLASE 51 MG in EMPTY BAG 1 BAG IV STA (14:02)
--- NOTE | 2020-07-26 14:11 | CT ---
EXAMINATION TYPE: CT angio head neck DATE OF EXAM: 07/26/2020 HISTORY: Dizziness, Lt eye vision Blurred, TERRY COMPARISON: CT DLP: 419.3 mGycm. Automated Exposure Control for Dose Reduction was Utilized. TECHNIQUE: CTA scan of the neck is performed with IV Contrast, patient injected with 65 mL of Isovue 370, axial images are obtained, coronal and sagittal reformatted images are reviewed. Three-D recons tructed images are created on an independent workstation and reviewed. Source images are reviewed. FINDINGS: Carotid/Vascular Structures: There is a three-vessel arch. The vertebral arteries are codominant. Com mon carotid arteries bifurcate into internal and external carotid arteries normally. Internal carotid arteries extend to the skull base. Cervical of James: Vertebral basilar system appears normal. Posterior cerebral vasculature is unrema rkable. Internal carotid arteries bifurcate normally into A1 and M1 segments. A2 segments are normal. The anterior communicating artery is patent. Posterior communicating arteries are not identified. Op hthalmic arteries are not specifically identified. IMPRESSION: 1. No flow-limiting stenosis bilateral carotid bifurcations. 2. Normal red devil of James
[2020-07-26] MEDS ORDERED: NALOXONE 0.4 MG/ML 1 ML VIAL IV PRN (14:27)
[2020-07-26 14:54] LABS: C Reactive Protein 0.7 mg/dL (<1.0)
[2020-07-26] MEDS ORDERED: SODIUM CHLORIDE 0.9% 50 ML MINI-BAG IV ONE ×2 (15:01→15:03)
[2020-07-26 15:35] LABS: Amphetamine Screen,Urine Not Detected (NotDetected); Barbiturate Screen,Urine Not Detected (NotDetected); Benzodiazepines Screen,Urine Not Detected (NotDetected); Cocaine Screen,Urine Not Detected (NotDetected); Methadone Screen, Urine Not Detected (NotDetected); Opiate Screen,Urine Not Detected (NotDetected); Oxycodone Screen, Urine Not Detected (NotDetected); Phencyclidine Screen,Urine Not Detected (NotDetected); Tricyclic Antidepressant,Urine Not Detected (NotDetected); Urn Cannabinoid Scrn Detected (NotDetected)
--- NOTE | 2020-07-26 18:19 | P.HPIM ---
History of Present Illness H&P Date: 07/26/20 20 years old patient of mine with past medical history of Chiari malformation status post decompression [address] Altamirano, depression, migraines comes in with severe headache, dizziness and right-sided weakness starting at 11:30 this morning. Patient was at work when the symptoms started. She stated it wasn't like her usual migraines. She developed a headache that was bifrontal and radiated down the right side of her neck. Patient noticed she was dizzy and had blurry vision. She noticed black spots in the left lower quadrant of her peripheral vision. She also noticed weakness which was more pronounced in the right leg and patient was stumbling due to losing control over her right lower extremity. She felt the right side of her face involving her cheek to have a different texture. Patient had her first baby last year in April when she quit smoking. She is currently on oral contraceptives She is under a lot of stress due to recent divorce with her . In on evaluation in the ER patient had a N diet score of 4, stat CT CT were obtained which were negative. Neurology Dr. Jaimes was consulted who recommended TPA at that time. Since last were normal, blood pressure was okay order was placed for TPA. Patient received TPA within 4 hours of onset of symptoms. Patient was assessed in the ICU. Patient's headache has improved and is currently located in the occipital region, fairly firm vision is restored weakness is fairly improved but patient does feel a little heavy in the right lower leg. Dxjyjd-fo-etdn test was normal. Patient to be monitored overnight in the ICU. EKG with negative for ST or T-wave changes. Neuro checks to be performed post TPA protocol. Neurology consult placed. Patient's presentation could be related to complex migraine versus ischemic stroke. Neurology recommendations pending. ICU management per pulmonary Dr. Baca Review of Systems Constitutional: Denies chills, Denies fever, Denies lethargy, Denies malaise, Denies poor appetite, Denies weakness, Denies weight loss Eyes: denies decreased vision, denies diplopia, denies discharge, denies pain Ears: deny: decreased hearing Ears, nose, mouth and throat: Denies dental pain, Denies headache, Denies nasal discharge, Denies nose pain Cardiovascular: Denies chest pain, Denies decreased exercise tolerance, Denies edema, Denies high blood pressure, Denies irregular heart beat, Denies palpitations, Denies paroxysmal nocturnal dyspnea, Denies rapid heart beat, Denies shortness of breath Respiratory: Denies congestion, Denies cough, Denies cough with sputum, Denies dyspnea, Denies home oxygen, Denies wheezing Gastrointestinal: Denies abdominal pain, Denies change in bowel habits, Denies coffee ground emesis, Denies early satiety, Denies excessive gas, Denies heartburn, Denies hematemesis, Denies hematochezia, Denies loss of appetite, Denies nausea, Denies vomiting Genitourinary: Denies dysuria, Denies flank pain, Denies kidney stones, Denies menorrhagia, Denies urgency, Denies urinary frequency Musculoskeletal: Denies gait dysfunction, Denies limitation of motion, Denies morning stiffness, Denies muscle cramps Integumentary: Denies rash, Denies wounds, Denies brittle nails, Denies change in hair/nails, Denies darkening of skin Neurological: Endorses balance difficulties, Denies change in speech, endorses blurry vision, endorses gait dysfunction, endorses loss of vision, endorses motor disturbance, Denies numbness, Denies paralysis, Denies paresthesias, Denies seizures Psychiatric: Denies anxiety, Denies depression Endocrine: Denies excessive sweating, Denies excessive thirst, Denies high blood sugars, Denies palpitations Hematologic/Lymphatic: Denies easy bruising, Denies lymphadenopathy Past Medical History Past Medical History: Asthma Additional Past Medical History / Comment(s): chiari malformation, migraines. History of Any Multi-Drug Resistant Organisms: None Reported Past Surgical History: Adenoidectomy, Section, Ear Surgery, Tonsillectomy Additional Past Surgical History / Comment(s): Chiari malformation repaired, Past Anesthesia/Blood Transfusion Reactions: No Reported Reaction Past Psychological History: Anxiety, Depression, PTSD Smoking Status: Current every day smoker Past Alcohol Use History: Occasional Past Drug Use History: Marijuana - Past Family History Mother Family Medical History: Hypertension Medications and Allergies Home Medications Medication Instructions Recorded Confirmed Type Escitalopram [Lexapro] 5 mg PO HS 07/26/20 07/26/20 History Norethindrone-E.estradiol-Iron 1 tab PO HS 07/26/20 07/26/20 History [Aurovela Fe 1.5 mg-30 Mcg Tab] acetaZOLAMIDE [acetaZOLAMIDE ER] 500 mg PO BID 07/26/20 07/26/20 History Allergies Allergy/AdvReac Type Severity Reaction Status Date / Time amoxicillin Allergy Rash/Hives Verified 07/26/20 13:49 Penicillins Allergy Rash/Hives Verified 07/26/20 13:49 seafood Allergy Swelling Uncoded 07/26/20 12:47 Physical Exam Vitals: Vital Signs Temp Pulse Resp BP Pulse Ox 07/26/20 16:20 97.9 F 60 15 111/60 100 07/26/20 16:16 69 16 111/70 100 07/26/20 16:12 100 07/26/20 16:00 69 16 101/60 100 07/26/20 15:30 73 16 101/60 100 07/26/20 15:15 58 L 16 103/61 100 07/26/20 15:00 61 18 112/69 100 07/26/20 14:45 66 16 108/71 100 07/26/20 14:30 74 16 106/30 100 07/26/20 14:15 61 16 103/61 100 07/26/20 14:00 69 16 100/58 100 07/26/20 13:45 62 16 100/60 100 07/26/20 13:30 64 16 106/63 100 07/26/20 13:25 62 16 104/64 100 07/26/20 13:10 98 16 105/69 98 07/26/20 12:43 98.0 F 103 H 18 108/72 100 Intake and Output 07/26/20 07/26/20 07/26/20 06:59 14:59 22:59 Intake Total 100 Output Total 0 Balance 100 Intake: Intake, IV Titration 100 Amount Alteplase 51 mg In Empty 100 Bag 1 bag @ 51 mls/hr IV ONCE STA Rx#:[id number] Output: Urine 0 Other: Weight 63.503 kg - Constitutional General appearance: cooperative, no acute distress, Anxious - EENT Eyes: anicteric sclerae, PERRLA, peripheral vision intact ENT: hearing grossly normal - Neck Neck: no lymphadenopathy, normal ROM, no other, no rigidity, no stridor, no thyromegaly - Respiratory Respiratory: bilateral: CTA, negative: diminished, dullness, rales, rhonchi - Cardiovascular Rhythm: regular Heart sounds: normal: S1, S2 Abnormal Heart Sounds: no systolic murmur, no diastolic murmur, no rub, no S3 Gallop, no S4 Gallop, no click, no other - Gastrointestinal General gastrointestinal: normal bowel sounds, soft - Integumentary Integumentary: no rash - Neurologic Neurologic: CNII-XII intact except numbness involving the right cheek [id number] test intact no sensitivity deficit, coordination and proprioception intact - Musculoskeletal Musculoskeletal: 4+/5 weakness right lower extremity 5/5 in rest of the limbs, zbowqm-bc-bvsy test negative Babinski negative. Sensory deficit negative proprioception intact - Psychiatric Psychiatric: A&O x's 3, appropriate affect Results CBC & Chem 7: 07/26/20 13:00 07/26/20 13:00 Labs: Abnormal Lab Results - Last 24 Hours (Table) 07/26/20 07/26/20 Range/Units 13:00 14:58 Chloride 110 H (98-107) mmol/L U Marijuana (THC) Screen Detected H (NotDetected) Thrombosis Risk Factor Assmnt - DVT/VTE Prophylaxis DVT/VTE Prophylaxis: Low risk, early ambulation encouraged - Choose All That Apply Any of the Below Risk Factors Present?: No Assessment and Plan Plan: #1 acute right hemiparesis with right facial paralysis and left partial hemianopia CTA negative for any occlusion. Status post TPA on 07/26. Hold oral contraceptives. Pending vasculitis workup. Neurology evaluation for possible MRI. History of Chiari malformation. Neuro checks post TPA protocol. PTOT consult. Patient to be monitored in ICU for next 24 hours Pulmonary consulted for ICU management #2 history of Chiari malformation last MRI performed in April last year before the of her child. Neurologist plan to repeat her MRI this year. Continue acetazolamide 250 twice a day #3 history of migraines continue Tylenol as needed for headaches #4 depression continue Lexapro 5 mg by mouth daily #5 DVT prophylaxis with ambulation #6 CODE STATUS full code #7 disposition patient would indicate need 1-2 inpatient nights for stabilization
[2020-07-26] MEDS: PATIENT'S OWN (Acetazolamide [Acetazolamide Er] 500 MG Capsule.Er) PO SCH (20:53)
[2020-07-26] MEDS: ESCITALOPRAM 5 MG TAB PO SCH (20:56)
[2020-07-27 04:17] LABS: Basophils % (A) 1 %; Eosinophils # (A) 0.2 k/uL (0-0.7); Eosinophils % (A) 2 %; HCT 41.2 % (34.0-46.0); HGB 13.9 gm/dL (11.4-16.0); Lymphocytes # (A) 4.1 k/uL (1.0-4.8); Lymphocytes % (A) 49 %; MCH 28.9 pg (25.0-35.0); MCHC 33.7 g/dL (31.0-37.0); MCV 85.8 fL (80.0-100.0); Monocytes # (A) 0.6 k/uL (0-1.0); Monocytes % (A) 7 %; Neutrophils # (A) 3.2 k/uL (1.3-7.7); Neutrophils % (A) 39 %; Platelet Count 228 k/uL (150-450); RDW 13.6 % (11.5-15.5); WBC 8.3 k/uL (3.8-10.6)
[2020-07-27 04:33] LABS: African American GFR (CKD) >90 (>60 ml/min/1.73 sqM); Anion Gap 5 mmol/L; Blood Urea Nitrogen 10 mg/dL (7-17); Calcium 9.2 mg/dL (8.4-10.2); Carbon Dioxide 26 mmol/L (22-30); Chloride 107 mmol/L (98-107); Glucose 87 mg/dL (74-99); Non-African American GFR(CKD) >90 (>60 ml/min/1.73 sqM); Sodium 138 mmol/L (137-145)
--- NOTE | 2020-07-27 08:01 | P.CNPUL ---
History of Present Illness Consult date: 07/27/20 Requesting physician: Daren Joel Reason for consult: other (Critical care management) Chief complaint: Right-sided facial tingling and numbness with expressive aphasia History of present illness: This is a very pleasant 20-year-old female patient with a known history of depression, chronic migraines, Chiari malformation status post decompression in 2018#chronic and ongoing tobacco dependence, marijuana use. She presented to the emergency room yesterday approximately 1 PM with complaints of sudden onset of dizziness, left-sided visual changes, right-sided heaviness and unsteadiness in her gait. She had some rice facial tingling and numbness. She had developed a bifrontal headache that radiated down to the right side of her neck. ET scan of the brain and CT angiograms were unremarkable. She was seen and evaluated by the on-call neurologist who recommended the patient receive TPA. This was given in the emergency room. She was at school he admitted to the ICU for closer monitoring. She is seen today in consultation. She is sitting up in bed. Awake and alert in no acute distress. No signs of bleeding. No residual effects. She is feeling back to her baseline. No headache. No weakness. No visual disturbances. 18 in good O2 saturations up to 99% on room air. She's been afebrile. Hemodynamically stable. White count count 8.3. Hemoglobin 13.9. Sodium 138. Potassium 4.0. Creatinine 0.71. Urine hCG not detected. Urine drug screen negative other than marijuana. Evans virus not detected. Review of Systems REVIEW OF SYSTEMS: CONSTITUTIONAL: Denies any recent significant weight loss or weight gain. EYES: Positive for change in vision. EARS, NOSE, MOUTH, THROAT: Positive for headaches, denies sore throat. CARDIOVASCULAR: Denies chest pain, palpitations or syncopal episodes. RESPIRATORY: Denies shortness of breath, cough, congestion or hemoptysis. GASTROINTESTINAL: Denies change in appetite, denies abdominal pain GENITOURINARY: Denies hematuria, denies infections. MUSKULOSKELETAL: Denies pain, denies swelling. INTEGUMENTARY: Denies rash, denies eczema. NEUROLOGICAL: Positive for dizziness and right-sided weakness. PSYCHIATRIC: Denies anxiety, denies depression. HEMATOLOGIC/LYMPHATIC: Denies anemia, denies enlarged lymph nodes. Past Medical History Past Medical History: Asthma Additional Past Medical History / Comment(s): chiari malformation, migraines. History of Any Multi-Drug Resistant Organisms: None Reported Past Surgical History: Adenoidectomy, Section, Ear Surgery, Tonsillectomy Additional Past Surgical History / Comment(s): Chiari malformation repaired, Past Anesthesia/Blood Transfusion Reactions: No Reported Reaction Past Psychological History: Anxiety, Depression, PTSD Smoking Status: Current every day smoker Past Alcohol Use History: Occasional Past Drug Use History: Marijuana - Past Family History Mother Family Medical History: Hypertension Medications and Allergies Home Medications Medication Instructions Recorded Confirmed Type Escitalopram [Lexapro] 5 mg PO HS 07/26/20 07/26/20 History Norethindrone-E.estradiol-Iron 1 tab PO HS 07/26/20 07/26/20 History [Aurovela Fe 1.5 mg-30 Mcg Tab] acetaZOLAMIDE [acetaZOLAMIDE ER] 500 mg PO BID 07/26/20 07/26/20 History Allergies Allergy/AdvReac Type Severity Reaction Status Date / Time amoxicillin Allergy Rash/Hives Verified 07/26/20 13:49 Penicillins Allergy Rash/Hives Verified 07/26/20 13:49 seafood Allergy Swelling Uncoded 07/26/20 12:47 Physical Exam Vitals: Vital Signs Temp Pulse Resp BP Pulse Ox 07/27/20 07:00 61 15 93/56 99 07/27/20 06:00 54 L 14 88/58 07/27/20 05:00 61 15 88/52 07/27/20 04:00 97.8 F 50 L 12 91/53 99 07/27/20 03:00 55 L 10 L 94/61 98 07/27/20 02:00 54 L 11 L 95/57 96 07/27/20 01:00 53 L 15 94/57 98 07/27/20 00:17 53 L 16 94/57 97 07/27/20 00:00 98.1 F 49 L 10 L 94/58 96 07/26/20 23:00 56 L 17 91/53 100 07/26/20 22:00 62 14 102/63 100 07/26/20 21:00 60 14 83/52 97 07/26/20 20:16 65 16 100/50 99 07/26/20 20:00 97.9 F 61 11 L 100/50 99 07/26/20 19:46 97.9 F 79 14 83/52 98 07/26/20 19:16 70 18 105/64 100 07/26/20 19:00 64 4 L 99/63 07/26/20 18:46 72 18 99/63 100 07/26/20 18:16 73 18 99/63 100 07/26/20 18:00 80 10 L 98/60 07/26/20 17:46 70 16 99/63 100 07/26/20 17:16 72 18 115/68 100 07/26/20 17:00 71 14 111/60 07/26/20 16:46 70 16 115/68 100 07/26/20 16:20 97.9 F 60 15 111/60 100 07/26/20 16:16 69 16 111/70 100 07/26/20 16:12 100 07/26/20 16:00 69 15 101/60 100 07/26/20 15:30 73 16 101/60 100 07/26/20 15:15 58 L 16 103/61 100 07/26/20 15:00 61 18 112/69 100 07/26/20 14:45 66 16 108/71 100 07/26/20 14:30 74 16 106/30 100 07/26/20 14:15 61 16 103/61 100 07/26/20 14:00 69 16 100/58 100 07/26/20 13:45 62 16 100/60 100 07/26/20 13:30 64 16 106/63 100 07/26/20 13:25 62 16 104/64 100 07/26/20 13:10 98 16 105/69 98 07/26/20 12:43 98.0 F 103 H 18 108/72 100 Intake and Output 07/26/20 07/27/20 07/27/20 22:59 06:59 14:59 Intake Total 560 Output Total 0 0 Balance 560 0 Intake: Intake, IV Titration 100 Amount Alteplase 51 mg In Empty 100 Bag 1 bag @ 51 mls/hr IV ONCE STA Rx#:[id number] Oral 460 Output: Urine 0 0 Other: Voiding Method Toilet Toilet # Voids 1 1 0 Weight 65.5 kg GENERAL EXAM: Alert, active, pleasant 20-year-old female patient, on room air, comfortable in no apparent distress. HEAD: Normocephalic. EYES: Normal reaction of pupils, equal size. NOSE: Clear with pink turbinates. THROAT: No erythema or exudates. NECK: No masses, no JVD. CHEST: No chest wall deformity. LUNGS: Equal air entry with no crackles, wheeze, rhonchi or dullness. CVS: S1 and S2 normal with no audible murmur, regular rhythm. ABDOMEN: No hepatosplenomegaly, normal bowel sounds, no guarding or rigidity. SPINE: No scoliosis or deformity SKIN: No rashes CENTRAL NERVOUS SYSTEM: No focal deficits, tone is normal in all 4 extremities. EXTREMITIES: There is no peripheral edema. No clubbing, no cyanosis. Peripheral pulses are intact. Results - Laboratory Findings CBC and BMP: 07/27/20 03:32 07/27/20 03:32 PT/INR, D-dimer PT 10.6 sec (9.0-12.0) 07/26/20 13:00 INR 1.0 (<1.2) 07/26/20 13:00 Abnormal lab findings: Abnormal Labs 07/26/20 07/26/20 13:00 14:58 Chloride 110 H U Marijuana (THC) Screen Detected H - Diagnostic Findings Chest x-ray: image reviewed Assessment and Plan Assessment: 1 Acute right-sided hemiparesis with right sided facial paralysis and left partial bessie-and he'll be. CT angiogram negative for occlusion. 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 Baca Chest x-ray, CTA, CAT scan of the labs reviewed Status post TPA infusion per protocol No signs of any active bleeding Continue to monitor her closely here in the ICU until approximately 1400 Transfer to the regular medical floor with telemetry We'll continue to follow and make further recommendations based on her clinical status Time with Patient: Greater than 30
--- NOTE | 2020-07-27 13:16 | P.PN ---
Subjective Progress Note Date: 07/27/20 20 years old patient of mine with past medical history of Chiari malformation status post decompression [address] Altamirano, depression, migraines comes in with severe headache, dizziness and right-sided weakness starting at 11:30 this morning. Patient was at work when the symptoms started. She stated it wasn't like her usual migraines. She developed a headache that was bifrontal and radiated down the right side of her neck. Patient noticed she was dizzy and had blurry vision. She noticed black spots in the left lower quadrant of her peripheral vision. She also noticed weakness which was more pronounced in the right leg and patient was stumbling due to losing control over her right lower extremity. She felt the right side of her face involving her cheek to have a different texture. Patient had her first baby last year in April when she quit smoking. She is currently on oral contraceptives She is under a lot of stress due to recent divorce with her . In on evaluation in the ER patient had a N diet score of 4, stat CT CT were obtained which were negative. Neurology Dr. Jaimes was consulted who recommended TPA at that time. Since last were normal, blood pressure was okay order was placed for TPA. Patient received TPA within 4 hours of onset of symptoms. Patient was assessed in the ICU. Patient's headache has improved and is currently located in the occipital region, fairly firm vision is restored weak ness is fairly improved but patient does feel a little heavy in the right lower leg. Addzvf-ms-vazr test was normal. Patient to be monitored overnight in the ICU. EKG with negative for ST or T-wave changes. Neuro checks to be performed post TPA protocol. Neurology consult placed. Patient's presentation could be related to complex migraine versus ischemic stroke. Neurology recommendations pending. ICU management per pulmonary Dr. Baca 07/27 patient examined bedside. Patient is back to her baseline. Numbness involving the face and weakness involving upper and lower extremities completely resolved. Patient's vision is back to normal. Denies any headache, numbness or tingling in the lower extremities denies any deficit in coordination or any dizziness. Neurology evaluation is pending. Vitals reexamine patient is afebrile pulse 60 blood pressure 92/56 respiratory rate 13. Repeat labs this morning hemoglobin stable at 13.9 INR is 1. CMP is undetectable. Patient is positive for marijuana. Syphilis negative rheumatoid factor negative FANTA panel pending. Review of system Constitutional: Denies chills, Denies fever, Denies lethargy, Denies malaise, Denies poor appetite, Denies weakness, Denies weight loss Eyes: denies decreased vision, denies diplopia, denies discharge, denies pain Ears: deny: decreased hearing Ears, nose, mouth and throat: Denies dental pain, Denies headache, Denies nasal discharge, Denies nose pain Cardiovascular: Denies chest pain, Denies decreased exercise tolerance, Denies edema, Denies high blood pressure, Denies irregular heart beat, Denies palpitations, Denies paroxysmal nocturnal dyspnea, Denies rapid heart beat, Denies shortness of breath Respiratory: Denies congestion, Denies cough, Denies cough with sputum, Denies dyspnea, Denies home oxygen, Denies wheezing Gastrointestinal: Denies abdominal pain, Denies change in bowel habits, Denies coffee ground emesis, Denies early satiety, Denies excessive gas, Denies heartburn, Denies hematemesis, Denies hematochezia, Denies loss of appetite, Denies nausea, Denies vomiting Genitourinary: Denies dysuria, Denies flank pain, Denies kidney stones, Denies menorrhagia, Denies urgency, Denies urinary frequency Musculoskeletal: Denies gait dysfunction, Denies limitation of motion, Denies morning stiffness, Denies muscle cramps Integumentary: Denies rash, Denies wounds, Denies brittle nails, Denies change in hair/nails, Denies darkening of skin Neurological: Denies balance difficulties, Denies change in speech, Denies double vision, Denies gait dysfunction, Denies loss of vision, Denies motor disturbance, Denies numbness, Denies paralysis, Denies paresthesias, Denies seizures Psychiatric: Denies anxiety, Denies depression Endocrine: Denies excessive sweating, Denies excessive thirst, Denies high blood sugars, Denies palpitations Hematologic/Lymphatic: Denies easy bruising, Denies lymphadenopathy Objective - Vital Signs Vital signs: Vital Signs Temp 97.8 F 07/27/20 04:00 Pulse 60 07/27/20 08:00 Resp 13 07/27/20 08:00 BP 92/56 07/27/20 08:00 Pulse Ox 96 07/27/20 08:00 Intake & Output 07/26/20 07/27/20 07/27/20 18:59 06:59 18:59 Intake Total 460 100 360 Output Total 0 0 0 Balance 460 100 360 Weight 63.503 kg 65.5 kg Intake: Intake, IV Titration 100 Amount Alteplase 51 mg In Empty 100 Bag 1 bag @ 51 mls/hr IV ONCE STA Rx#:[id number] Oral 360 100 360 Output: Urine 0 0 0 Other: Voiding Method Toilet Toilet # Voids 1 0 - Exam - Constitutional General appearance: cooperative, no acute distress, obese - EENT Eyes: anicteric sclerae, PERRLA, normal appearance ENT: hearing grossly normal - Neck Neck: no lymphadenopathy, normal ROM, no other, no rigidity, no stridor, no thyromegaly - Respiratory Respiratory: bilateral: CTA, negative: diminished, dullness, rales, rhonchi - Cardiovascular Rhythm: regular Heart sounds: normal: S1, S2 Abnormal Heart Sounds: no systolic murmur, no diastolic murmur, no rub, no S3 Gallop, no S4 Gallop, no click, no other - Gastrointestinal General gastrointestinal: normal bowel sounds, soft - Integumentary Integumentary: no rash - Neurologic Neurologic: CNII-XII intact - Musculoskeletal Musculoskeletal: gait normal, mild weakness involving right lower extremity 4+/5 no facial droop no difficulty with coordination and proprioception normal zeglob-[id number] test normal - Psychiatric Psychiatric: A&O x's 3, appropriate affect - Labs CBC & Chem 7: 07/27/20 03:32 07/27/20 03:32 Labs: Abnormal Lab Results - Last 24 Hours (Table) 07/26/20 07/26/20 Range/Units 13:00 14:58 Chloride 110 H (98-107) mmol/L U Marijuana (THC) Screen Detected H (NotDetected) Assessment and Plan Plan: #1 acute right hemiparesis with right facial paralysis and left partial hemianopia CTA negative for any occlusion. Status post TPA on 07/26. Hold oral contraceptives. Pending vasculitis workup. Neurology evaluation for possible MRI. History of Chiari malformation. Neuro checks post TPA protocol. PTOT consult. Patient can be moved to the floor once cleared by pulmonary #2 history of Chiari malformation last MRI performed in April last year before the of her child. Neurologist plan to repeat her MRI this year. Continue acetazolamide 250 twice a day #3 history of migraines continue Tylenol as needed for headaches #4 depression continue Lexapro 5 mg by mouth daily #5 DVT prophylaxis with ambulation #6 CODE STATUS full code #7 disposition likely discharge tomorrow #8 marijuana use #9 former tobacco abuse currently does vaping, is planning to quit
--- NOTE | 2020-07-27 15:03 | CT ---
EXAMINATION TYPE: CT brain wo con DATE OF EXAM: 07/27/2020 COMPARISON: 07/26/2020 HISTORY: Follow up CVA. History of cecilia malformation. CT DLP: 1100.4 mGycm. Automated Exposure Control for Dose Reduction was Utilized. TECHNIQUE: CT scan of the head is performed without contrast. FINDINGS: There is no acute intracranial hemorrhage, mass effect, or midline shift identified. The ventricles and sulci are within normal limits in size. The globes are intact and the visualized sin uses are clear. No change compared to the prior study. IMPRESSION: No acute intracranial hemorrhage, mass effect, or midline shift is seen. No change jacques red to the prior study.
--- NOTE | 2020-07-27 16:45 | P.CNNES ---
History of Present Illness Consult date: 07/27/20 History of Present Illness: The patient is a 20-year-old female who is seen in neurologic consultation on July 27, 2020, via teleneurology. In reviewing the chart, it is noted that the patient came into the emergency department yesterday with complaints of tingling of her face, as well as headache. Patient also reports blurred vision from her left eye and then loss of vision of her left eye. Patient's headache reportedly increased in severity. Patient's symptoms were sudden in onset. She does have history of migraine headaches however reports that these symptoms are different than her usual migraines. Patient reports that her visual symptoms lasted for 1-2 hours. She says she continues to have mild weakness in her right leg. There was no associated slurring of speech. The patient reports that her headache was frontal and behind her eyes. The headache then increased in severity behind her right eye and radiated to the back of her head and down her neck. She describes the headache is a severe pounding pain. She denies associated nausea, vomiting and photophobia. The patient was worked up in the emergency department, for stroke. She had a CT scan of the brain and CT angiogram of the head and neck. Both of these tests were negative for acute infarct, hemorrhage and significant stenosis or occlusion. The [place] stroke neurology team was contacted. The recommendation was to give the patient IV TPA. In reviewing the emergency department note, and a stroke scale score is reported to be 2. The patient did receive IV TPA and reportedly, tolerated it well. The patient reportedly has a history of Chiari malformation. She is status post decompression. She reportedly has a history of chronic headaches. The patient reports that her surgery was very successful. She had been having difficulty with motor skills, fainting and headaches, associated with her Chiari malformation. Past Medical History Past Medical History: Asthma Additional Past Medical History / Comment(s): chiari malformation, migraines. History of Any Multi-Drug Resistant Organisms: None Reported Past Surgical History: Adenoidectomy, Section, Ear Surgery, Tonsillectomy Additional Past Surgical History / Comment(s): Chiari malformation repaired, Past Anesthesia/Blood Transfusion Reactions: No Reported Reaction Past Psychological History: Anxiety, Depression, PTSD Smoking Status: Current every day smoker Past Alcohol Use History: Occasional Past Drug Use History: Marijuana - Past Family History Mother Family Medical History: Hypertension Medications and Allergies Home Medications Medication Instructions Recorded Confirmed Type Escitalopram [Lexapro] 5 mg PO HS 07/26/20 07/26/20 History Norethindrone-E.estradiol-Iron 1 tab PO HS 07/26/20 07/26/20 History [Aurovela Fe 1.5 mg-30 Mcg Tab] acetaZOLAMIDE [acetaZOLAMIDE ER] 500 mg PO BID 07/26/20 07/26/20 History Allergies Allergy/AdvReac Type Severity Reaction Status Date / Time amoxicillin Allergy Rash/Hives Verified 07/26/20 13:49 Penicillins Allergy Rash/Hives Verified 07/26/20 13:49 seafood Allergy Swelling Uncoded 07/26/20 12:47 Physical Examination - Vital Signs Vital Signs: Vital Signs Temp Pulse Resp BP Pulse Ox 07/27/20 08:00 60 13 92/56 96 07/27/20 07:57 15 07/27/20 07:00 61 15 93/56 99 07/27/20 06:00 54 L 14 88/58 07/27/20 05:00 61 15 88/52 07/27/20 04:00 97.8 F 50 L 12 91/53 99 07/27/20 03:00 55 L 10 L 94/61 98 07/27/20 02:00 54 L 11 L 95/57 96 07/27/20 01:00 53 L 15 94/57 98 07/27/20 00:17 53 L 16 94/57 97 07/27/20 00:00 98.1 F 49 L 10 L 94/58 96 07/26/20 23:00 56 L 17 91/53 100 07/26/20 22:00 62 14 102/63 100 07/26/20 21:00 60 14 83/52 97 07/26/20 20:16 65 16 100/50 99 07/26/20 20:00 97.9 F 61 11 L 100/50 99 07/26/20 19:46 97.9 F 79 14 83/52 98 07/26/20 19:16 70 18 105/64 100 07/26/20 19:00 64 4 L 99/63 07/26/20 18:46 72 18 99/63 100 07/26/20 18:16 73 18 99/63 100 07/26/20 18:00 80 10 L 98/60 07/26/20 17:46 70 16 99/63 100 07/26/20 17:16 72 18 115/68 100 07/26/20 17:00 71 14 111/60 07/26/20 16:46 70 16 115/68 100 07/26/20 16:20 97.9 F 60 15 111/60 100 07/26/20 16:16 69 16 111/70 100 07/26/20 16:12 100 07/26/20 16:00 69 15 101/60 100 07/26/20 15:30 73 16 101/60 100 07/26/20 15:15 58 L 16 103/61 100 07/26/20 15:00 61 18 112/69 100 07/26/20 14:45 66 16 108/71 100 07/26/20 14:30 74 16 106/30 100 07/26/20 14:15 61 16 103/61 100 07/26/20 14:00 69 16 100/58 100 07/26/20 13:45 62 16 100/60 100 07/26/20 13:30 64 16 106/63 100 Intake and Output 07/26/20 07/27/20 07/27/20 22:59 06:59 14:59 Intake Total 560 360 Output Total 0 0 0 Balance 560 0 360 Intake: Intake, IV Titration 100 Amount Alteplase 51 mg In Empty 100 Bag 1 bag @ 51 mls/hr IV ONCE STA Rx#:[id number] Oral 460 360 Output: Urine 0 0 0 Other: Voiding Method Toilet Toilet Toilet # Voids 1 1 0 Weight 65.5 kg Gen.: The patient is reclining in the bed. She is well-nourished, well- developed and in no acute distress. HEENT: Head is atraumatic, normocephalic. Fundus not visualized. There is no scleral icterus. Mucous members are moist. Neck: Supple without carotid bruits Heart: Regular rate and rhythm Lungs: Clear to auscultation Extremities: Without edema Neurological examination Mental status: The patient is awake, alert and oriented 3. Her speech is clear. Cranial nerves: Pupils are equal at 4 mm and reactive to light. Visual luis are full to confrontation. Extraocular movements are intact. There is nystagmus on bilateral lateral gaze. Facial sensation is intact. There is no facial asymmetry. Hearing is intact bilaterally. Uvula and palate are midline. Shoulder shrug is symmetric. Tongue protrudes midline. Line motor: Strength is 5/5 throughout. Coordination: Lgannq-nqyw-[id number] testing and bqgu-yy-[id number] testing are intact. Deep tendon reflexes: 2+/4+ throughout. Plantar responses are flexor bilaterally. Sensation: Grossly intact to light touch, throughout Psych: The patient becomes tearful when told that she will spend one more night in the hospital, so as to have a 2-D echocardiogram and MRI. Results - Laboratory Findings CBC and BMP: 07/27/20 03:32 07/27/20 03:32 Abnormal Lab Findings: Abnormal Labs 07/26/20 07/26/20 13:00 14:58 Chloride 110 H U Marijuana (THC) Screen Detected H Assessment and Plan Assessment: 1. Acute onset neurologic symptoms consisting of left facial and upper extremity numbness, in addition to headache and right sided weakness. Code stroke was activated in the emergency department and the patient received IV TPA. ? Cerebral ischemia versus complicated migraine 2. History of migraine headaches 3. History of Chiari malformation, status post decompression Plan: 1. Repeat CT scan of brain, 24 hours following IV TPA, to rule out hemorrhage 2. Order set for status post IV TPA 3. Patient should be started on aspirin 81 mg daily 4. Lipid panel, hemoglobin A1c, TSH should be checked 5. 2-D echocardiogram 6. MRI of brain without gadolinium to further evaluate for acute ischemia Time with Patient: Greater than 30 (spent 40 minutes with patient via teleneurology)
[2020-07-27 16:46] LABS: T4, Free (Free Thyroxine) 1.33 ng/dL (0.78-2.19)
[2020-07-27] MEDS: PATIENT'S OWN (Acetazolamide [Acetazolamide Er] 500 MG Capsule.Er) PO SCH ×2 (17:47→20:40)
[2020-07-27] MEDS: ESCITALOPRAM 5 MG TAB PO SCH (20:48)
[2020-07-27 23:28] LABS: Hemoglobin A1C 4.6 % (4.0-6.0)
[2020-07-28] MEDS: PATIENT'S OWN (Acetazolamide [Acetazolamide Er] 500 MG Capsule.Er) PO SCH (09:27)
[2020-07-28] MEDS ORDERED: ASPIRIN 81 MG PO SCH (11:30)
[2020-07-28] MEDS ORDERED: ONDANSETRON 4 MG/2 ML VIAL IVP PRN (11:38)
[2020-07-28] MEDS ORDERED: MORPHINE SULFATE 2 MG/ML SYRINGE IVP PRN (11:38)
[2020-07-28 12:45] VITALS: BP 109/67; PULSE 65; RESP 18; TEMP 97.7
[2020-07-28 14:37] LABS: Anti-Smith Ab Interp NEGATIVE (NEGATIVE)
--- NOTE | 2020-07-28 16:59 | MR ---
EXAMINATION TYPE: MR brain wo con DATE OF EXAM: 07/28/2020 COMPARISON: 05/16/2019 HISTORY: Possible stroke. Hx of cecilia malformation. Multiplanar multiecho imaging of the brain was performed without contrast. Ventricles and sulci appear normal. There is no mass effect nor midline shift. There is no sign of in tracranial hemorrhage. Diffusion images show no evidence of an acute infarct. Brainstem is intact. Corpus callosum is intact. Sella turcica appears normal. There is no evidence of posterior fossa mass. I do not see evidence of a Chiari malformation of the cerebellum. There is occ ipital craniotomy defect. IMPRESSION: Negative MR scan of the brain. No change compared to old exam. No evidence of an infarct.
--- NOTE | 2020-07-28 17:28 | P.PN ---
Subjective Progress Note Date: 07/28/20 She is being seen by me for the first time. Please refer to Dr. Olmedo's note for further details of neurological history. Today the patient was complaining of headaches over the right hemisphere that has improved today. She feels she is almost back to baseline. She denies any further weakness, or visual disturbance (which that is why she presented to hospital). Objective - Vital Signs Vital signs: Vital Signs Temp 97.7 F 07/28/20 12:00 Pulse 65 07/28/20 12:00 Resp 18 07/28/20 12:00 BP 109/67 07/28/20 12:00 Pulse Ox 98 07/28/20 12:00 Intake & Output 07/27/20 07/28/20 07/28/20 18:59 06:59 18:59 Intake Total 1140 75 Output Total 0 0 Balance 1140 75 Intake: Oral 1140 75 Output: Urine 0 0 Other: Voiding Method Toilet Toilet # Voids 1 1 1 - Exam GENERAL: The patient is lying in bed and is not in acute distress. NEUROLOGICAL: Higher mental function: The patient is awake, alert, oriented to self, place and time. Patient is following commands. No aphasia and no neglect. Cranial nerves: The pupils are round, equal and reactive to light and accommodation. Visual luis are full to confrontation throughout. Extraocular movement is intact no nystagmus is noted. Facial sensation is normal to touch throughout. The facial strength is normal throughout. Hearing is normal bilaterally to hand rub. Tongue is midline and moved [id number] without any difficulty. No dysarthria is noted. Shoulder shrug is normal bilaterally. Motor: The strength is 5 over 5 throughout. Normal tone and bulk. Cerebellum: Normal finger to nose heel to chin bilaterally. Sensation: Sensation is normal to touch throughout. Reflexes (right/left): 2+ throughout Plantars are downgoing bilaterally. . - Labs CBC & Chem 7: 07/27/20 03:32 07/27/20 03:32 Assessment and Plan Assessment: 1. Acute onset neurologic symptoms consisting of left facial and upper extremity numbness, in addition to headache and right sided weakness and com plained of left vision loss. Code stroke was activated in the emergency department and the patient received IV TPA. ? Cerebral ischemia versus complicated migraine 2. History of migraine headaches 3. History of Chiari malformation, status post decompression 4. Depression. Plan: Repeat CT of the head post TPA is reported as no acute intracranial hemorrhage, mass effect or midline shift is seen. No change compared to the prior study. Lipid panel: Triglyceride of 54, Cholesterol 145, LDL of 96 and HDL 38. LDL goal and strokes is less than 70. TSH is 0.322 which is low but the free T4 is 1.33 which is normal. Hemoglobin A1c is 4.6 which is normal. Continue aspirin 81 mg daily and I started the patient on Lipitor 40mg qhs for secondary stroke phylaxis. MRI: Reported as negative MRI scan of the brain. No change compared to old exam. No evidence of an infarct. I ordered a 2-D echo (it was recommended by neurology but not ordered). Consulted physical therapy and occupation therapy. Regarding the patient's headache I ordered Elavil 25mg qhs and for abortive can take Naproxen 325mg PRN (take with food and to avoid taking >15 tablets in a month). If continues to have headaches can go up on Elavil to 50mg qhs. Please avoid morphine or narcotics or sedative that would affect the patient's mentation. The patient does wants to leave and follow-up with her neurologist. Upon discharge, the patient needs to follow-up with a neurologist within 1-2 wee ks (she follows-up with Dr. Keerthi Altamirano). The plan is discussed with the patient's nurse. Franck Damico MD Neuro-Hospitalist Time with Patient: Less than 30
--- NOTE | 2020-07-28 17:41 | P.PN ---
Subjective Progress Note Date: 07/28/20 Principal diagnosis: Right-sided facial tingling and numbness with expressive aphasia This is a very pleasant 20-year-old female patient with a known history of depression, chronic migraines, Chiari malformation status post decompression in 2018#chronic and ongoing tobacco dependence, marijuana use. She presented to the emergency room yesterday approximately 1 PM with complaints of sudden onset of dizziness, left-sided visual changes, right-sided heaviness and unsteadiness in her gait. She had some rice facial tingling and numbness. She had developed a bifrontal headache that radiated down to the right side of her neck. ET scan of the brain and CT angiograms were unremarkable. She was seen and evaluated by the on-call neurologist who recommended the patient receive TPA. This was given in the emergency room. She was at school he admitted to the ICU for closer mo nitoring. She is seen today in consultation. She is sitting up in bed. Awake and alert in no acute distress. No signs of bleeding. No residual effects. She is feeling back to her baseline. No headache. No weakness. No visual disturbances. 18 in good O2 saturations up to 99% on room air. She's been afebrile. Hemodynamically stable. White count count 8.3. Hemoglobin 13.9. Sodium 138. Potassium 4.0. Creatinine 0.71. Urine hCG not detected. Urine drug screen negative other than marijuana. Evans virus not detected. On 07/28/2020 patient seen in follow-up on medical surgical floor, she is resting in bed, she is having some mild right-sided occipital headaches, otherwise neurologically she is not having any deficits, no expressive aphasia, no weakness or numbness, strength is equal bilaterally, she is moving all 4 extremities. Her neurological symptoms that were present on admission have resolved, neurology is following, her MRI of the brain is pending for today. Her vital signs have been stable, room air pulse ox is 98%, she's been afebrile, blood pressure is stable. No acute events overnight. Objective - Vital Signs Vital signs: Vital Signs Temp 97.7 F 07/28/20 12:00 Pulse 65 07/28/20 12:00 Resp 18 07/28/20 12:00 BP 109/67 07/28/20 12:00 Pulse Ox 98 07/28/20 12:00 Intake & Output 07/27/20 07/28/20 07/28/20 18:59 06:59 18:59 Intake Total 1140 75 Output Total 0 0 Balance 1140 75 Intake: Oral 1140 75 Output: Urine 0 0 Other: Voiding Method Toilet Toilet # Voids 1 1 1 - Exam GENERAL EXAM: Alert, very pleasant, 20-year-old white female, on room air with a pulse ox of 90%, complaining of a mild right-sided occipital headache, otherwise neurologically intact comfortable in no apparent distress. HEAD: Normocephalic/atraumatic. EYES: Normal reaction of pupils, equal size. Conjunctiva pink, sclera white. NOSE: Clear with pink turbinates. THROAT: No erythema or exudates. NECK: No masses, no JVD, no thyroid enlargement, no adenopathy. CHEST: No chest wall deformity. Symmetrical expansion. LUNGS: Equal air entry with no crackles, wheeze, rhonchi or dullness. CVS: Regular rate and rhythm, normal S1 and S2, no gallops, no murmurs, no rubs ABDOMEN: Soft, nontender. No hepatosplenomegaly, normal bowel sounds, no guarding or rigidity. EXTREMITIES: No clubbing, no edema, no cyanosis, 2+ pulses and upper and lower extremities. MUSCULOSKELETAL: Muscle strength and tone normal. SPINE: No scoliosis or deformity SKIN: No rashes CENTRAL NERVOUS SYSTEM: Alert and oriented -3. No focal deficits, tone is normal in all 4 extremities. PSYCHIATRIC: Alert and oriented -3. Appropriate affect. Intact judgment and insight. - Labs CBC & Chem 7: 07/27/20 03:32 07/27/20 03:32 Assessment and Plan Plan: Assessment: 1 Acute right-sided hemiparesis with right sided facial paralysis and left partial bessie-and he'll be. CT angiogram negative for occlusion. Status post TPA on 07/26/2020 2 History of castillo malformation status post decompression surgery in 2018 3 History of migraines 4 History of oral contraceptives 5 Chronic and ongoing tobacco dependence 6 Marijuana use 7 History of depression Plan: Neurologically patient seems to have improved since admission No evidence of neurological deficits present on admission Vital signs have been stable Neurology is following No signs of any active bleeding Pulmonary/critical care will sign off and follow and as needed basis I performed a history & physical examination of the patient and discussed their management with my nurse practitioner, Jayne Eid. I reviewed the nurse practitioner's note and agree with the documented findings and plan of care. Lung sounds are positive for clear breath sounds. The findings and the imp ression was discussed with the patient. I attest to the documentation by the nurse practitioner. Time with Patient: Less than 30
--- NOTE | 2020-07-28 17:44 | P.DS ---
Providers Date of admission: 07/26/20 14:40 Attending physician: Daren Joel MD Consults: 07/26/20 14:27 Consult Physician Stat Consulting Provider: Carlos Baca Consult Reason/Comments: Post TPA care Do you want consulting provider notified?: Already Contacted 07/26/20 14:40 Consult Physician Stat Consulting Provider: Fe Olmedo Consult Reason/Comments: CVA, post TPA Do you want consulting provider notified?: Yes Primary care physician: Daren Joel MD Hospital Course: 20 years old patient of mine with past medical history of Chiari malformation status post decompression [address] Altamirano, depression, migraines comes in with severe headache, dizziness and right-sided weakness starting at 11:30 this morning. Patient was at work when the symptoms started. She stated it wasn't like her usual migraines. She developed a headache that was bifrontal and radiated down the right side of her neck. Patient noticed she was dizzy and had blurry vision. She noticed black spots in the left lower quadrant of her peripheral vision. She also noticed weakness which was more pronounced in the right leg and patient was stumbling due to losing control over her right lower extremity. She felt the right side of her face involving her cheek to have a different texture. Patient had her first baby last year in April when she quit smoking. She is currently on oral contraceptives She is under a lot of stress due to recent divorce with her . In on evaluation in the ER patient had a N diet score of 4, stat CT CT were obtained which were negative. Neurology Dr. Jaimes was consulted who recommended TPA at that time. Since last were normal, blood pressure was okay order was placed for TPA. Patient received TPA within 4 hours of onset of symptoms. Patient was assessed in the ICU. Patient's headache has improved and is currently located in the occipital region, fairly firm vision is restored weakness is fairly improved but patient does feel a little heavy in the right lower leg. [id number]-[id number] test was normal. Patient to be monitored overnight in the ICU. EKG with negative for ST or T-wave changes. Neuro checks to be performed post TPA protocol. Neurology consult placed. Patient's presentation could be related to complex migraine versus ischemic stroke. Neurology recommendations pending. ICU management per pulmonary Dr. Baca 07/27 patient examined bedside. Patient is back to her baseline. Numbness involving the face and weakness involving upper and lower extremities completely resolved. Patient's vision is back to normal. Denies any headache, numbness or tingling in the lower extremities denies any deficit in coordination or any dizziness. Neurology evaluation is pending. Vitals reexamine patient is afebrile pulse 60 blood pressure 92/56 respiratory rate 13. Repeat labs this morning hemoglobin stable at 13.9 INR is 1. CMP is undetectable. Patient is positive for marijuana. Syphilis negative rheumatoid factor negative FANTA panel pending. 07/28 patient examined bedside. This morning patient started having visual deficit involving the left lateral quadrant of her admission platelet. Patient had an MRI this morning with no evidence of ischemia. Neurology recommendation pending. Patient's presentation could be ischemia versus complicated migraine. Patient continues to have heaviness in the right leg, slight headache in the bifrontal area. Patient evaluated by neurology who recommended amitriptyline started at 25 mg by mouth daily. Patient to follow with Dr. Alaniz as outpatient to help complicated migraine. According to be ordered as outpatient. Patient is eager to be discharged today Review of system Constitutional: Denies chills, Denies fever, Denies lethargy, Denies malaise, Denies poor appetite, Denies weakness, Denies weight loss Eyes: denies decreased vision, denies diplopia, denies discharge, denies pain Ears: deny: decreased hearing Ears, nose, mouth and throat: Denies dental pain, Denies headache, Denies nasal discharge, Denies nose pain Cardiovascular: Denies chest pain, Denies decreased exercise tolerance, Denies edema, Denies high blood pressure, Denies irregular heart beat, Denies palpitations, Denies paroxysmal nocturnal dyspnea, Denies rapid heart beat, Denies shortness of breath Respiratory: Denies congestion, Denies cough, Denies cough with sputum, Denies dyspnea, Denies home oxygen, Denies wheezing Gastrointestinal: Denies abdominal pain, Denies change in bowel habits, Denies coffee ground emesis, Denies early satiety, Denies excessive gas, Denies heartburn, Denies hematemesis, Denies hematochezia, Denies loss of appetite, Denies nausea, Denies vomiting Genitourinary: Denies dysuria, Denies flank pain, Denies kidney stones, Denies menorrhagia, Denies urgency, Denies urinary frequency Musculoskeletal: Denies gait dysfunction, Denies limitation of motion, Denies morning stiffness, Denies muscle cramps Integumentary: Denies rash, Denies wounds, Denies brittle nails, Denies change in hair/nails, Denies darkening of skin Neurological: Endorses floaters on the left peripheral vision, heaviness involving the right lower extremity, headache, slight dizziness Psychiatric: Denies anxiety, Denies depression Endocrine: Denies excessive sweating, Denies excessive thirst, Denies high blood sugars, Denies palpitations Hematologic/Lymphatic: Denies easy bruising, Denies lymphadenopathy Physical exam - Constitutional General appearance: cooperative, no acute distress, obese - EENT Eyes: anicteric sclerae, PERRLA, normal appearance left lower visual field blurred ENT: hearing grossly normal - Neck Neck: no lymphadenopathy, normal ROM, no other, no rigidity, no stridor, no thyromegaly - Respiratory Respiratory: bilateral: CTA, negative: diminished, dullness, rales, rhonchi - Cardiovascular Rhythm: regular Heart sounds: normal: S1, S2 Abnormal Heart Sounds: no systolic murmur, no diastolic murmur - Gastrointestinal General gastrointestinal: normal bowel sounds, soft - Neurologic Neurologic: CNII-XII intact right lower extremity 4+/5 [id number] test normal - Musculoskeletal Musculoskeletal: gait normal, strength equal Grassley and bilateral lower extremity - Psychiatric Psychiatric: A&O x's 3, appropriate affect Discharge diagnosis #1 acute right hemiparesis with right facial paralysis and left partial hemianopia , stroke could not be ruled out possible complicated migraine #2 history of Chiari malformation #3 history of migraines #4 depression #5 marijuana use #6 former tobacco abuse currently does vaping, is planning to quit Pending imaging= echo as outpatient Disposition home with self-care Patient Condition at Discharge: Stable Plan - Discharge Summary Discharge Rx Participant: No New Discharge Prescriptions: No Action acetaZOLAMIDE [acetaZOLAMIDE ER] 500 mg PO BID Escitalopram [Lexapro] 5 mg PO HS Norethindrone-E.estradiol-Iron [Aurovela Fe 1.5 mg-30 Mcg Tab] 1 tab PO HS Discharge Medication List acetaZOLAMIDE [acetaZOLAMIDE ER] 500 mg PO BID 07/26/20 [History] Amitriptyline HCl [Elavil] 25 mg PO HS #30 tab 07/28/20 [Rx] Aspirin 81 mg PO DAILY chew 07/28/20 [Rx] Atorvastatin [Lipitor] 40 mg PO HS #30 tab 07/28/20 [Rx] Follow up Appointment(s)/Referral(s): Daren Joel MD [Primary Care Provider] - 1-2 days
[2020-07-28] MEDS ORDERED: ATORVASTATIN 40 MG TAB PO SCH (21:00)
[2020-07-28] MEDS ORDERED: AMITRIPTYLINE HCL 25 MG TAB PO SCH (21:00)
== END 2020-07-28 18:25 | disposition home or self-care (01) | DRG 62 ==
LOC: EC 12:41 → 2SICU 14:40 → 5NMEDONC 07-28 03:29
PROVIDERS: ADMIT Internal Medicine; ATTEND Internal Medicine
DX: I63.9 Cerebral infarction, unspecified (principal); G81.91 Hemiplegia, unspecified affecting right dominant side; G43.109 Migraine with aura, not intractable, without status migrainosus; R29.702 NIHSS score 2; J45.909 Unspecified asthma, uncomplicated; F43.10 Post-traumatic stress disorder, unspecified; F17.200 Nicotine dependence, unspecified, uncomplicated; Z82.49 Family history of ischemic heart disease and other diseases of the circulatory system; Z88.0 Allergy status to penicillin; Z91.013 Allergy to seafood; G51.0 Bell's palsy; H54.62 Unqualified visual loss, left eye, normal vision right eye; Z87.728 Personal history of other specified (corrected) congenital malformations of nervous system and sense organs; F32.9 Major depressive disorder, single episode, unspecified; R47.01 Aphasia; Z20.822 Contact with and (suspected) exposure to COVID-19
CPT/HCPCS: 36415; 70450; 70496; 70498; 70551; 71046; 80048; 80053; 80061; 80306; 81025; 83036; 84439; 84443; 84484; 85025; 85610; 85652; 85730; 86038; 86140; 86235; 86431; 86780; 87635; 93005; 96365; 99285

== ENCOUNTER → 2020-08-08 | Outpatient (CLI) | payer OTHER ==
--- NOTE | 2020-08-08 13:17 | US ---
EXAMINATION TYPE: US carotid duplex BILAT DATE OF EXAM: 08/08/2020 COMPARISON: NONE CLINICAL HISTORY: I63.9 STROKE. 19 year old with weakness to right side EXAM MEASUREMENTS: RIGHT: Peak Systolic Velocity (PSV) cm/sec ----- Right CCA: 165 ----- Right ICA: 159 ----- Right ECA: 134 ICA/CCA ratio: 1.0 RIGHT: End Diastole cm/sec ----- Right CCA: 34.4 ----- Right ICA: 59.8 ----- Right ECA: 15.4 LEFT: Peak Systolic Velocity (PSV) cm/sec ----- Left CCA: 145 ----- Left ICA: 145 ----- Left ECA: 156 ICA/CCA ratio: 1.0 LEFT: End Diastole cm/sec ----- Left CCA: 28.1 ----- Left ICA: 58.9 ----- Left ECA: 16.3 VERTEBRALS (direction of flow): Right Vertebral: Antegrade Left Vertebral: Antegrade Rhythm: Tachycardia IMPRESSION: 1. Elevated of the bilateral common carotid arteries and internal carotid artery suggestive of 50-69% hemodynamic stenosis bilaterally. In this patient's age range, a CT may be helpful of the neck for further evaluation due to hemodynamic significant stenosis. Criteria for Assigning % of Stenosis / Diameter reduction (Estimation based on the indirect measurements of the internal carotid artery velocities (ICA PSV). 1. Normal (no stenosis)=ICA PSV < 125 cm/s: ratio < 2.0: ICA EDV<40 cm/s. 2. Less than 50% stenosis=ICA PSV < 125 cm/s: ratio < 2.0: ICA EDV<40 cm/s. 3. 50 to 69% stenosis=ICA PSV of 125 to 230 cm/s: ration 2.0 ? 4.0: ICA EDV 40-100 cm/s. 4. Greater than 70% stenosis to near occlusion= ICA PSV > 230 cm/s: ratio > 4.0: ICA EDV > 100 cm/s. 5. Near occlusion= ICA PSV velocities may be low or undetectable: variable ratio and ICA EDV. 6. Total occlusion=unable to detect flow.
== END | disposition home or self-care (01) ==
LOC: RADUSWWP 10:22
PROVIDERS: ATTEND Internal Medicine
DX: I63.9 Cerebral infarction, unspecified (principal)
CPT/HCPCS: 93880

== ENCOUNTER → 2020-08-15 | Outpatient (CLI) | payer OTHER ==
--- NOTE | 2020-08-16 17:31 | ECHOF ---
Referral Reason:I63.9 Stroke MEASUREMENTS -------- HEIGHT: 162.6 cm WEIGHT: 56.7 kg BP: IVSd: 0.7 cm (0.6 - 1.1) LVIDd: 3.3 cm (3.9 - 5.3) LVPWd: 0.8 cm (0.6 - 1.1) EDV(Teich): 44 ml IVSs: 1.2 cm LVIDs: 1.7 cm LVPWs: 1.2 cm %IVS Thck: 84 % ESV(Teich): 8 ml EF(Teich): 82 % %FS: 49 % SV(Teich): 36 ml RVIDd: 2.2 cm (< 3.3) IVC: 12.36 mm LALs A4C: 3.4 cm LAAs A4C: 5.9 cm LAESV A-L A4C: 9 ml LAESV MOD A4C: 8 ml LALs A2C: 3.7 cm LAAs A2C: 8.9 cm LAESV A-L A2C: 18 ml LAESV MOD A2C: 17 ml LAESV(A-L): 13 ml Ao Diam: 2.5 cm (2.0 - 3.7) LA Diam: 1.7 cm (2.7 - 3.8) AV Cusp: 1.6 cm (1.5 - 2.6) EPSS: 0.6 cm MV E Gonsalo: 0.74 m/s MV DecT: 188 ms MV Dec Putnam: 3.9 m/s MV A Gonsalo: 0.59 m/s MV E/A Ratio: 1.25 MV PHT: 54 ms MR Vmax: 1.08 m/s MR maxP.64 mmHg AV Vmax: 1.07 m/s AV maxP.56 mmHg TR Vmax: 1.19 m/s TR maxP.65 mmHg RAP: 5.00 mmHg RVSP: 10.65 mmHg MV EF SLOPE: 85.95 mm/s (70 - 150) MV EXCURSION: 18.61 mm (> 18.000) FINDINGS -------- This was a technically good study. The left ventricular size is normal. Left ventricular wall thickness is normal. Overall left vent ricular systolic function is low-normal with, an EF between 50 - 55 %. The right ventricle is normal in size. The left atrial size is normal. Normal LA size by volume 22+/-6 ml/m2. The right atrial size is normal. The aortic valve is trileaflet and appears structurally normal. The mitral valve is normal. There is trace mitral regurgitation. The tricuspid valve appears structurally normal. Trace tricuspid regurgitation present. Right tiffanie tricular systolic pressure is normal at < 35 mmHg. There is no pulmonic regurgitation present. The aortic root size is normal. Normal inferior vena cava with normal inspiratory collapse consistent with estimated right atrial pre ssure of 5 mmHg. There is no pericardial effusion. CONCLUSIONS -------- 1. The left ventricular size is normal. 2. Left ventricular wall thickness is normal. 3. Overall left ventricular systolic function is low-normal with, an EF between 50 - 55 %. 4. There is trace mitral regurgitation. 5. Trace tricuspid regurgitation present. 6. There is no pericardial effusion. [employer] COMMISSIONER: Laura Tate RDCS
== END | disposition home or self-care (01) ==
LOC: RADECHMAIN 15:50
PROVIDERS: ATTEND Internal Medicine
DX: I08.1 Rheumatic disorders of both mitral and tricuspid valves (principal)
CPT/HCPCS: 93306

== ENCOUNTER 2020-10-02 08:48 | Day surgery (SDC) | payer OTHER ==
[2020-09-30 16:03] VITALS: BMI 23.3
[~2020-10-02 08:48] MED LIST changes: -CARBOPROST TROMETHAMINE 250 MCG/ML 1 ML AMP IM PRN; -LIDOCAINE 0.5% (PF) 5 MG/ML (50 ML SDV) SQ PRN; -METHYLERGONOVINE 0.2 MG/ML 1 ML AMP IM PRN; -OXYTOCIN 10 UNIT/ML 1 ML VIAL IM PRN; +SODIUM CHLORIDE 0.9% 1,000 ML IV SCH; -TERBUTALINE 1 MG/ML VIAL SQ PRN
[2020-10-02 09:32] VITALS: BP 95/54; PULSE 100; RESP 16; TEMP 98.7
--- NOTE | 2020-10-02 11:43 | P.EPPROC ---
- EP Procedure Note Electrophysiology Procedure Note: Diagnosis Recurrent presyncope and palpitations Twelve-lead EKG shows sinus rhythm normal OH narrow QRS normal ST segments no delta waves no epsilon waves normal QT interval Tilt table test per protocol line Baseline blood pressure 95/51 mmHg Baseline heart rate 82 beats a minute Patient was tilted upright from angle of 70 per protocol There was an intermediate increase in her heart rate 224 beats a minute. Her heart rates remained between 112 130 beats a minute Late in the test she felt dizzy and weak presyncopal and was losing her vision did there was a sudden drop in her blood pressure This reproduced her clinical symptoms When she was laid supine her blood pressure returned to the mid 90s. No bradycardia noted Impression Orthostatic hypotension syndrome/POTS Secondary neurocardiogenic phenomena Normal twelve-lead EKG Plan Endurance training Strength training of the lower extremities Increase fluid and salt intake Consider low-dose Florinef Follow-up with Dr. Joel
--- NOTE | 2020-10-02 11:53 | P.PRLE ---
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 but no daytime bradycardia Sinus tachycardia represents orthostatic intolerance A 2-D echo is normal She has a history of CVA with TPA administration but her follow-up MRI was completely normal Reviewing her history at that admission, that may have been simply a complex migraine symptomatology rather than a true embolic event She was on estrogens at that time which should be discontinued I don't believe this lady has true carotid occlusive disease either In terms of her orthostatic intolerance for treatment involves Regular meals A balanced diet Endurance training Strength training of the lower extremities increasing fluid and salt intake Perhaps low-dose Florinef until she improves I don't believe she has any cardiac issues but I have scheduled her for a bubble study but I don't believe that the 2-D echo showed any evidence for an ASD Thank you for entrusting me with the care of her patient Sincerely Mark Michaud
== END 2020-10-02 11:11 | disposition home or self-care (01) ==
LOC: CATHEP 08:48
PROVIDERS: ATTEND Internal Medicine Clinical Cardiac Electrophysiology
DX: I49.8 Other specified cardiac arrhythmias (principal); F17.210 Nicotine dependence, cigarettes, uncomplicated; Z79.82 Long term (current) use of aspirin
CPT/HCPCS: 81025; 93660

== ENCOUNTER → 2020-11-19 | Outpatient (CLI) | payer OTHER ==
[2020-11-19 10:46] VITALS: BP 99/63; PULSE 98; RESP 18; TEMP 97.7
--- NOTE | 2020-11-19 11:03 | P.PAINCN ---
History of Present Illness - Reason for Consult Consult date: 11/19/20 - History of Present Illness This is 20 years old female with a chronic history of severe neck pain and headache, she had chronic headaches since childhood, she had Arnold-Chiari malformation. Which was done in 2018, report after the surgery she started having neck pain associated with headache, she was evaluated by Dr Altamirano , neurologist , she was diagnosed with occipital neuralgia and she recommended occipital nerve block Bilaterlly, patient denies any numbness or tingling sensation in the upper extremity she denies any motor or sensory deficit, and she reported that the neck pain and headache is from the base of the skull to the top, the neck pain increases with any neck movement and any activity Past Medical History Past Medical History: Asthma, CVA/TIA Additional Past Medical History / Comment(s): Chiari malformation, migraines, "When I stand up fast my heart rate yesi rockets, dizzy, lightheaded and my vision goes black.". Hx CVA 07/26/20, occasional heart palpitations. History of Any Multi-Drug Resistant Organisms: None Reported Past Surgical History: Adenoidectomy, Section, Ear Surgery, Tonsillectomy Additional Past Surgical History / Comment(s): Chiari malformation repaired. Past Anesthesia/Blood Transfusion Reactions: No Reported Reaction Smoking Status: Former smoker - Past Family History Mother Family Medical History: Hypertension Medications and Allergies Home Medications Medication Instructions Recorded Confirmed Type acetaZOLAMIDE [acetaZOLAMIDE ER] 500 mg PO DAILY 07/26/20 11/17/20 History Aspirin 81 mg PO DAILY chew 07/28/20 11/17/20 Rx Atorvastatin [Lipitor] 40 mg PO HS #30 tab 07/28/20 11/17/20 Rx Albuterol Inhaler [Ventolin Hfa 1 puff INHALATION DAILY PRN 09/30/20 11/17/20 History Inhaler] Amitriptyline HCl [Elavil] 25 mg PO Q48H 11/17/20 11/17/20 History Escitalopram [Lexapro] 20 mg PO Q48H 11/17/20 11/17/20 History Allergies Allergy/AdvReac Type Severity Reaction Status Date / Time amoxicillin Allergy Rash/Hives Verified 11/17/20 13:54 Penicillins Allergy Rash/Hives Verified 11/17/20 13:54 seafood Allergy Swelling Uncoded 11/17/20 13:54 Physical Exam Vitals: Vital Signs Temp Pulse Resp BP Pulse Ox 11/19/20 10:44 97.7 F 98 18 99/63 98 Physical Examinations : -Constitutiona : Cooperative , not in acute distress . -HEENT : nech : supple , no Lymphadenopathy , normal thyroid size . : eyes : no ptosis , no icterus, no photophobia . - neurologic : Cranial nerve II to XII intact , no focal neurological deffecit . -psychatric : alert , oriented X 3 , appropriate affect , intact judgment and insight . -Lymphatic : no Lymphadenopathy . - musculoskeltal : Cervical Spine motor stregnth in the deltoid and biceps, normal right side , normal Left side motor stregnth biceps and the wrist extensors normal right side ,normal left side . motor stregnth in the triceps muscle . normal Right side , normal Left side deep tendon reflexes normal at the biceps , normal at Brachioradialis , normal at triceps. cervical facet loading test: Positive Bilaterally sever Tenderness over the occipital nerve bilaterally Lumber spine moter stegnth lower extremities ,thigh and legs 5/5 Right side , 5/5 Left side Results Comments: MRI of the brain negative Computed tomography scan of the brain negative Assessment and Plan Plan: Assessment and plan=1-occipital neuralgia. 2-cervicogenic headache. 3-cervical spondylosis. she is good candidate to have bilateral occipital nerve block 2 He continued to have neck pain and headache after the occipital nerve block then he should consider ordering MRI of the cervical spine Time with Patient: Greater than 30 PQRS Measure Charge Sheet Measure #130: Documentation of Current Meds in Medical Chart: Patient's medications documented in chart PQRS Narrative: Smoking Status Former smoker Blood Pressure 99/63 Pain Intensity [Neck] 5 Pain Intensity [Head] 4 Scale Used Numeric (1 - 10) Hx Alcohol Use (MH) Yes Home Medications: Ambulatory Orders acetaZOLAMIDE [acetaZOLAMIDE ER] 500 mg PO DAILY 07/26/20 Aspirin 81 mg PO DAILY chew 07/28/20 Atorvastatin [Lipitor] 40 mg PO HS #30 tab 07/28/20 Albuterol Inhaler [Ventolin Hfa Inhaler] 1 puff INHALATION DAILY PRN 09/30/20 Amitriptyline HCl [Elavil] 25 mg PO Q48H 11/17/20 Escitalopram [Lexapro] 20 mg PO Q48H 11/17/20
== END ==
LOC: PNWHC3 10:26
PROVIDERS: ATTEND Specialist
DX: M54.81 Occipital neuralgia (principal); M47.812 Spondylosis without myelopathy or radiculopathy, cervical region; Z87.891 Personal history of nicotine dependence; J45.909 Unspecified asthma, uncomplicated; Z86.73 Personal history of transient ischemic attack (TIA), and cerebral infarction without residual deficits; Z79.82 Long term (current) use of aspirin; Z88.0 Allergy status to penicillin; Z88.1 Allergy status to other antibiotic agents; Z91.013 Allergy to seafood
CPT/HCPCS: 99211

== ENCOUNTER 2020-12-23 10:45 | Day surgery (SDC) | payer OTHER ==
[2020-12-19 15:09] VITALS: BMI 23.5
[2020-12-23 11:08] VITALS: RESP 16; TEMP 97.7
[2020-12-23] MEDS ORDERED: methylPREDNISolone ACETATE 40 MG/ML 1 ML VIAL ONE (12:20)
[2020-12-23] MEDS ORDERED: ROPIVACAINE 5MG/ML 20ML VIAL ONE (12:20)
--- NOTE | 2020-12-23 12:37 | P.PCN ---
Date of Procedure: 12/23/20 Description of Procedure: PREOPERATIVE DIAGNOSIS: Occipital neuralgia, and headaches POSTOPERATIVE DIAGNOSIS: Occipital neuralgia, and headaches PROCEDURES: 1. Bilateral Greater occipital nerve block SURGEON: Litzy Talbot ANESTHESIA: Local and IV sedation : none EBL: None. Specimen removed: None PROCEDURE INDICATIONS: This patient with a history of chronic headaches, and occipital neuralgia. Patient tried conservative therapy. Came here for intervention management. Procedure and Findings: The patient was seen and examined and written informed consent was obtained after explaining the risks, benefits and alternative of the procedure to the patient. The patient was positioned in the sitting position with the head slightly flexed and forehead rested on a pillow. By palpation, right side the external occipital protuberance and mastoid process were identified and mid point in between was located. The target point for greater occipital nerve was just medial to the occipital artery pulsation. The skin preparation was done with ChloraPrep X2 and sterile technique was observed throughout the procedure. A 25-guage, 1.5 inch needle was used for the procedure. A 25-gauge 1.5 inch needle was placed vertically downward, bony contact was obtained, negative aspiration was confirmed and 8 ml solution was injected. The needle was redirected little medially and laterally in a fanning fashion and addition medication was injected after negative aspiration. The block solution containing 0.5% preservative-free bupivacaine 6 mL +40 MG of Depo-Medrol. The needle was removed, Entire procedure was repeated on the left side . Needle was removed intact . needle puncture sites were cleaned and pressure was applied. The patient tolerated the procedure very well. COMPLICATIONS: None. DISPOSITION / PLANS: The patient was placed in a supine position and transferred to the recovery area in a stable condition for observation and was discharged from the recovery room after meeting discharge criteria. Home discharge instructions given to the patient by the staff. The patient was reexamined prior to discharge. The patient will schedule for follow-up visit with the pain clinic in 2-4 weeks duration
[2020-12-23] MEDS ORDERED: LACTATED RINGERS 1,000 ML IV SCH (12:45)
[2020-12-23 12:47] VITALS: BP 95/59; PULSE 80
== END 2020-12-23 12:52 | disposition home or self-care (01) ==
LOC: ORPAIN 10:45
DX: M54.81 Occipital neuralgia (principal); G43.909 Migraine, unspecified, not intractable, without status migrainosus; Z88.0 Allergy status to penicillin; Z88.1 Allergy status to other antibiotic agents
CPT/HCPCS: 81025; 64405; J1030; J2795

== ENCOUNTER → 2021-01-14 | Outpatient (CLI) | payer OTHER ==
[2021-01-14 12:42] VITALS: BP 103/70; PULSE 85; RESP 18; TEMP 97.7
--- NOTE | 2021-01-14 13:00 | P.PN ---
Subjective Progress Note Date: 01/14/21 Principal diagnosis: Bilateral occipital neuralgia, daily migraine headaches is a 20-year-old female presenting to clinic today for follow-up appointment after her bilateral occipital nerve block. Reports that she had immediate significant relief after the injections. Her pain was decreased by more than 80%. Her headache frequency, duration and severity have all decreased since the injections. She used to have headaches every day all day. She reports now that she only has headaches 3 or 4 times a week that are less induration or less and strength. She has found triggers at activator headaches included increased activity as well as changes in the weather. She is on the call compresses help decrease her migraines. Objective - Vital Signs Vital signs: Vital Signs Temp 97.7 F 01/14/21 12:39 Pulse 85 01/14/21 12:39 Resp 18 01/14/21 12:39 BP 103/70 01/14/21 12:39 Pulse Ox 97 01/14/21 12:39 - Exam Physical Examinations : -Constitutiona : Cooperative , not in acute distress . -HEENT : nech : supple , no Lymphadenopathy , normal thyroid size . : eyes : no ptosis , no icterus, no photophobia . - neurologic : Cranial nerve II to XII intact , no focal neurological deffecit . -psychatric : alert , oriented X 3 , appropriate affect , intact judgment and insight . -Lymphatic : no Lymphadenopathy . Assessment and Plan Assessment: Assessment: Bilateral occipital neuralgia; daily migraines Plan: Consider repeat bilateral occipital nerve blocks in the future have patient return as needed to clinic. - PQRS measures = - Patient's medications are documented in the chart. -Tobacco use is negative -Patient's has not received pneumococcal vaccine. -Advanced care planning discussed, patient not eligible. -Opiate contract not signed. -Pain positive and follow-up visit/procedure is scheduled. -Patient's blood pressure measured [ 103/70] , and documented in the record ,and patient will follow up with the primary care. -Patient's weight was measured and body mass index ,within the normal limits and counseling was done. and patient instructed to follow-up with the primary care physician. -Patient was not identified as an unhealthy alcohol user Time with Patient: Less than 30
== END ==
LOC: PNWHC3 11:59
PROVIDERS: ATTEND Student in an Organized Health Care Education/Training Program
DX: M54.81 Occipital neuralgia (principal); G43.909 Migraine, unspecified, not intractable, without status migrainosus; Z88.0 Allergy status to penicillin; Z91.013 Allergy to seafood; Z87.891 Personal history of nicotine dependence
CPT/HCPCS: 99211

== ENCOUNTER 2021-01-28 09:58 | Day surgery (SDC) | payer OTHER ==
[2021-01-26 13:01] VITALS: BMI 23.1
[2021-01-28] MEDS ORDERED: SODIUM CHLORIDE 0.9% 500 ML 500 ML IV ONE (10:22)
[2021-01-28 10:45] VITALS: RESP 16; TEMP 98.8
[2021-01-28] MEDS ORDERED: fentaNYL (PF) 50 MCG/ML 2 ML AMP ONE (12:02)
[2021-01-28] MEDS: BENZOCAINE SPRAY 1 CAN MUCOUS MEM ONE ×2 (12:18→12:32)
[2021-01-28] MEDS ORDERED: MIDAZOLAM 2 MG/2 ML VIAL IV ONE ×2 (12:32→12:41)
[2021-01-28] MEDS ORDERED: fentaNYL (PF) 50 MCG/ML 2 ML AMP IV ONE (12:32)
[2021-01-28 15:02] VITALS: BP 101/59; PULSE 59
== END 2021-01-28 14:31 | disposition home or self-care (01) ==
LOC: CATHCVL 09:58
PROVIDERS: ATTEND Internal Medicine Interventional Cardiology
DX: R00.2 Palpitations (principal); Z20.822 Contact with and (suspected) exposure to COVID-19; Z98.890 Other specified postprocedural states; Z88.0 Allergy status to penicillin; Z53.9 Procedure and treatment not carried out, unspecified reason
CPT/HCPCS: 81025; 87635; J2250; J3010

== ENCOUNTER 2021-02-26 09:49 | Day surgery (SDC) | payer OTHER ==
[2021-02-25 13:04] VITALS: BMI 23.1
[~2021-02-26 09:49] MED LIST changes: +LACTATED RINGERS 1,000 ML IV SCH; +LIDOCAINE 1% (10MG/ML) FOR IV START INTRADERMA PRN; -SODIUM CHLORIDE 0.9% 1,000 ML IV SCH
[2021-02-26] MEDS ORDERED: SODIUM CHLORIDE 0.9% 500 ML 500 ML IV ONE (10:09)
[2021-02-26 10:22] VITALS: RESP 16; TEMP 98.6
[2021-02-26] MEDS ORDERED: LIDOCAINE 1% INJ 10MG/ML (20 ML MDV) ONE (11:33)
[2021-02-26] MEDS ORDERED: MIDAZOLAM 2 MG/2 ML VIAL ONE (11:33)
[2021-02-26] MEDS ORDERED: .fentaNYL (PF) 50 MCG/ML 2 ML AMP ONE (11:33)
[2021-02-26] MEDS ORDERED: PHENYLEPHRINE-0.9% NACL SYG 1,000 MCG/10 ML SYRINGE ONE (11:33)
[2021-02-26] MEDS ORDERED: PROPOFOL 10 MG/ML 20 ML VIAL IV ONE (11:33)
[2021-02-26] MEDS: BENZOCAINE SPRAY 1 CAN TOPICAL ONE ×2 (11:34→11:42)
--- NOTE | 2021-02-26 12:31 | ECHOT ---
TRANSESOPHAGEAL ECHOCARDIOGRAM DATE OF SERVICE: February 26, 2021. PERFORMING PHYSICIAN: Srinath Kelly MD. PROCEDURE PERFORMED: Transesophageal echocardiogram. INDICATION: Rule out cardiac source of embolization. COMPLICATIONS: None. LEVEL OF SEDATION: The procedure was performed using propofol with TARGET AIRCRAFT TECHNICIAN in the room. PROCEDURE DESCRIPTION: After obtaining informed consent, the patient was brought to the transesophageal echocardiogram room. Pulse oximetry and heart rate monitors were attached the patient. Subsequently the patient was sedated using propofol with TARGET AIRCRAFT TECHNICIAN in the room. The transesophageal echocardiogram probe was advanced through the bite guard to the mid esophageal where 2D echocardiogram images as well as color Doppler images as well as pulse-wave Doppler and continuous-wave Doppler were performed. The procedure was completed without any complication. The left ventricular dimension and systolic function appeared to be within normal limits. The ejection fraction appeared to be in the range of 55-60 percent. The right ventricle appeared to be mildly dilated. The left atrium appeared to be within normal limits for dimension, but the right atrium appeared to be dilated as well. The interatrial septum appeared to be hyperdynamic with evidence of fenestrated septum with PFO and possibly atrial septal defect. The left atrial appendage appeared to be free from any thrombus. The aortic valve appeared to be trileaflet valve without stenosis or regurgitation. The mitral valve seems to be normal with mild MR. There was mild tricuspid regurgitation seen. No evidence of pericardial effusion identified. CONCLUSION: 1. Fenestrated interatrial septum with evidence of patent foramen ovale and right-to- left shunt and potentially atrial septal defect explain the right-sided enlargement. 2. Normal left atrial appendage without any evidence of thrombus identified. 3. Normal left ventricular dimension and systolic function. 4. Dilated right ventricle and right atrium. 5. Normal intracardiac valves. 6. No evidence of pericardial effusion. POSTPROCEDURE MANAGEMENT: 1. Given the history of stroke and given the right side enlargement, I advised the patient to undergo percutaneous closure of the fenestrated interatrial septum. 2. Further recommendation to follow that. 3. The patient is going to be seen by Dr. Michaud, her primary tobacco checkout clerk. MMODL / VIJAYN: [id number] /
[2021-02-26 12:57] VITALS: BP 98/52
[2021-02-26 13:14] VITALS: PULSE 76
== END 2021-02-26 13:30 | disposition home or self-care (01) ==
LOC: CATHCVL 09:49
PROVIDERS: ATTEND Internal Medicine Interventional Cardiology
DX: Q21.1 Atrial septal defect (principal); I51.7 Cardiomegaly; G93.5 Compression of brain; R00.2 Palpitations; Z87.891 Personal history of nicotine dependence; Z20.822 Contact with and (suspected) exposure to COVID-19; F41.9 Anxiety disorder, unspecified; F43.10 Post-traumatic stress disorder, unspecified; G43.909 Migraine, unspecified, not intractable, without status migrainosus; Z79.01 Long term (current) use of anticoagulants; Z79.82 Long term (current) use of aspirin; Z79.899 Other long term (current) drug therapy; Z91.013 Allergy to seafood; Z88.0 Allergy status to penicillin
CPT/HCPCS: 93312; 93320; 93325; 81025; 87635; J2250; J2001; J3010; J2370; J2704

== ENCOUNTER → 2021-09-24 | Outpatient (CLI) | payer OTHER ==
[2021-09-24 18:46] LABS: MCH 27.6 pg (27.0-32.0); MCHC 31.8 g/dL (32.0-37.0); MCV 86.8 fL (80.0-97.0); Mean Platelet Volume 10.6 fL (9.5-12.2); NRBC Per 100 WBC 0 /100 WBCS (0.0-0.0); Platelet Count 245 X 10*3/uL (140-440); RBC 5.07 X 10*6/uL (4.10-5.20); RDW 12.6 % (11.5-14.5); WBC 6.23 X 10*3/uL (4.50-10.00)
[2021-09-24 19:19] LABS: African American GFR (CKD) 115.5 (60.0-200.0); Anion Gap 9.7 mmol/L (10.00-18.00); Blood Urea Nitrogen 12.1 mg/dL (9.0-27.0); Carbon Dioxide 20.9 mmol/L (20.0-27.5); Non-African American GFR(CKD) 99.7 (60.0-200.0); Potassium 5.1 mmol/L (3.5-5.5)
== END | disposition home or self-care (01) ==
LOC: LABPAT 11:19
PROVIDERS: ATTEND Internal Medicine Interventional Cardiology
DX: Z01.812 Encounter for preprocedural laboratory examination (principal); Q21.1 Atrial septal defect
CPT/HCPCS: 80051; 82565; 84520; 85027

== ENCOUNTER 2021-09-30 05:58 | Day surgery (SDC) | payer OTHER ==
[2021-09-25 11:47] VITALS: BMI 23.1
[~2021-09-30 05:58] MED LIST changes: +ALPRAZolam 0.25 MG TAB PO PRN; +ALPRAZolam 0.5 MG TAB PO PRN; +ASPIRIN 325 MG TAB PO STA; +ATORVASTATIN 80 MG TAB PO STA; +HEPARIN SODIUM,PORCINE 10,000 UNIT in SODIUM CHLORIDE 0.9% 1,000 ML IRRIGATION PRN; +HEPARIN SODIUM,PORCINE 2,500 UNIT in SODIUM CHLORIDE 0.9% 250 ML IRRIGATION PRN; -LACTATED RINGERS 1,000 ML IV SCH; -LIDOCAINE 1% (10MG/ML) FOR IV START INTRADERMA PRN; +NITROGLYCERIN SL TABS 0.4 MG TAB SUBLINGUAL PRN
[2021-09-30] MEDS ORDERED: SODIUM CHLORIDE 0.9% 1,000 ML IV ONE (06:10)
[2021-09-30] MEDS: SODIUM CHLORIDE 0.9% 1,000 ML in EMPTY BAG 1 BAG IV SCH (06:31)
[2021-09-30] MEDS ORDERED: HEPARIN SODIUM 1,000 UN/ML (10ML VL) ONE (07:58)
[2021-09-30] MEDS ORDERED: fentaNYL (PF) 50 MCG/ML 2 ML AMP ONE (08:16)
[2021-09-30] MEDS ORDERED: fentaNYL (PF) 50 MCG/ML 2 ML AMP IV ONE (08:17)
[2021-09-30] MEDS ORDERED: LIDOCAINE 1% INJ 10MG/ML (30 ML VIAL-PF) SQ ONE ×2 (08:18→08:23)
[2021-09-30] MEDS ORDERED: MIDAZOLAM 2 MG/2 ML VIAL IV ONE (08:30)
[2021-09-30] MEDS ORDERED: HEPARIN SODIUM 1,000 UN/ML (10ML VL) IV ONE (08:31)
[2021-09-30] MEDS ORDERED: CLOPIDOGREL 75 MG TAB ONE (08:43)
[2021-09-30] MEDS ORDERED: CLOPIDOGREL 75 MG TAB PO ONE (08:48)
[2021-09-30] MEDS ORDERED: IOPAMIDOL-370 50ML BTL INJ ONE (08:56)
[2021-09-30] MEDS ORDERED: ALBUTEROL NEBULIZED 2.5 MG/3 ML INHALATION PRN (09:16)
--- NOTE | 2021-09-30 09:23 | P.PCN ---
Date of Procedure: 09/30/21 Operative Findings: PERCUTANEOUS CLOSURE OF FENESTRATED INTERATRIAL SEPTUM PERFORMING PHYSICIAN: Srinath Kelly MD, VI PROCEDURE PERFORMED: 1. Successful percutaneous closure of patent foramen ovale (PFO) using 25 mm Amplatzer device with an excellent results and without any residual shunt 2. Intracardiac echocardiogram imaging. 3. Right atrial angiogram. 4. Ultrasound-guided access of the right common femoral vein INDICATION: This is a 21-year-old female patient who sees Dr. Michaud was diagnosed recently with a stroke. Further investigation revealed patent foramen ovale. For that reason she was brought today for PFO closure APPROACH: Right common femoral vein 2 COMPLICATION: None. LEVEL OF SEDATION: Moderate with sedation length of 30 minutes. PROCEDURE DESCRIPTION: After obtaining informed consent, the patient was brought to the cardiac clinical laboratory technologist. The right common femoral vein was cannulated x2 using micropuncture technique under ultrasound guidance, the micropuncture wire passed easily, then I placed two 8-Togolese sheath in the right groin. Subsequently I cannulated the left common femoral vein with the same technique and I placed an 8-Togolese sheath there as well. At that point, anticoagulation was initiated using heparin and the patient was given a bolus of 5,000 units of heparin IV with continuous ACT monitoring throughout the procedure. After that, the intracardiac echocardiogram probe was advanced through one of the venous sheath under ultrasound guidance all the way to the right atrium where we did interrogate the interatrial septum and identified the patent foramen ovale. Further investigation using the intracardiac echocardiogram revealed a jet width across the patent foramen ovale of about 12 mm. For that reason decided to go with 25 mm device. Subsequently, I did cross the defect using 0.035 J-wire with the backup support of multipurpose catheter. The wire was advanced all the way to the left upper pulmonary vein and subsequently the catheter was advanced over the wire to the left upper pulmonary vein. The 0.035 J-wire was pulled out and then I advanced a anum wire. Subsequently, the multipurpose catheter was withdrawn out and the wire was left in the left upper pulmonary vein. After that, I did prep the Amplatzer PFO occluder under saline. The device was loaded into the coal unloader, which was attached to the sheath. Subsequently, I did exchange my 8-Togolese sheath into the Shuttle sheath over a 0.035 anum wire. The sheath was advanced all the way under fluoroscopy guidance to the left atrium. Subsequently, the dilator of the sheath was withdrawn out along with the wire. After that, I did load the Amplatzer occluder under continuous saline flush to the sheath. The device was advanced all the way through the sheath were I did where I did deploy initially the left atrial occluder and then I pulled back the sheath and the left atrial occluder all the way to the interatrial septum and then I deployed the right atrial occluder after that. Before I released the device, I did interrogate the septum using ice images on multiple views. After I realized that the device was stable enough and in good position the device was released. Interrogation using ice was also performed after the device was released. By the end I did right atrial angiogram. The procedure was completed without any complication. POSTPROCEDURE MANAGEMENT: 1. Dual anti-platelet therapy. 2. An echo in 24 hours, in 1 week, in 4 weeks, as well as in 6 months.
[2021-09-30] MEDS ORDERED: SODIUM CHLORIDE 0.9% 1,000 ML IV SCH (09:30)
[2021-09-30] MEDS ORDERED: ATORVASTATIN 40 MG TAB PO SCH (21:00)
[2021-09-30] MEDS ORDERED: ESCITALOPRAM 5 MG TAB PO SCH (21:00)
[2021-09-30] MEDS ORDERED: acetaZOLAMIDE 250 MG TAB PO SCH (21:00)
[2021-09-30] MEDS ORDERED: ACETAMINOPHEN TAB 325 MG TAB PO PRN (23:32)
[2021-10-01] MEDS: SODIUM CHLORIDE 0.9% 1,000 ML in EMPTY BAG 1 BAG IV SCH (01:20)
--- NOTE | 2021-10-01 07:13 | XR ---
EXAMINATION TYPE: XR chest 2V DATE OF EXAM: 10/01/2021 COMPARISON: [id number] HISTORY: Chest pain TECHNIQUE: Frontal and lateral views of the chest are obtained. FINDINGS: There is no focal air space opacity. No evidence for pneumothorax. No pleural effusion. The cardiac silhouette size is within normal limits. The osseous structures are grossly intact. IMPRESSION: 1. No acute cardiopulmonary process.
--- NOTE | 2021-10-01 08:50 | P.DS ---
Providers Attending physician: Srinath Kelly Consults: 10/01/21 08:47 Consult Physician Routine Consulting Provider: Devendra Goode Reason/Comments: Oral anticoagulation management Do you want consulting provider notified?: Already Contacted Primary care physician: Devendra Goode [facility] Course: This is a 21-year-old female patient who sees Dr. Michaud regularly was diagnosed recently was paradoxical embolization caused her to have TIA/CVA. Subsequently further investigation was performed. She underwent transesophageal echocardiogram which revealed evidence of fenestrated interatrial septum with right to left and [id number] shunt. Yesterday she was admitted to the hospital and underwent successful percutaneous closure of fenestrated interatrial septum using 25 mm Amplatzer device with an excellent results and without any residual shunt. The procedure was performed from the right groin. The patient was seen this morning. She is asymptomatic from a cardiovascular standpoint of view. She is hemodynamically stable as well. Her right groin is soft and nontender and without any bruises. At this point I'm going to discharge the patient on antiplatelet with Plavix and she was receiving in the past, Eliquis at 5 mg by mouth twice a day but I'm going to lower the dose to 2.5 mg by mouth twice a day and I'm going to ask Dr. Goode also to see the patient and help us in addressing her oral anticoagulation. An echocardiogram was performed this morning. I'm going to address Eecho and rule out any pericardial effusion and if the echo is normal the patient would be able to be discharged home. Plan - Discharge Summary Discharge Rx Participant: No New Discharge Prescriptions: New Clopidogrel [Plavix] 75 mg PO DAILY #90 tablet Apixaban [Eliquis] 2.5 mg PO BID #180 tab Continue Atorvastatin [Lipitor] 40 mg PO HS #30 tab Albuterol Inhaler [Ventolin Hfa Inhaler] 1 puff INHALATION DAILY PRN PRN Reason: Dyspnea acetaZOLAMIDE [Diamox Sequels] 500 mg PO HS Escitalopram [Lexapro] 5 mg PO HS Discontinued Apixaban [Eliquis] 5 mg PO BID Discharge Medication List acetaZOLAMIDE [Diamox Sequels] 500 mg PO HS 07/26/20 [History] Atorvastatin [Lipitor] 40 mg PO HS #30 tab 07/28/20 [Rx] Albuterol Inhaler [Ventolin Hfa Inhaler] 1 puff INHALATION DAILY PRN 09/30/20 [History] Escitalopram [Lexapro] 5 mg PO HS 02/25/21 [History] Apixaban [Eliquis] 2.5 mg PO BID #180 tab 10/01/21 [Rx] Clopidogrel [Plavix] 75 mg PO DAILY #90 tablet 10/01/21 [Rx] Follow up Appointment(s)/Referral(s): Mark Michaud MD [STAFF PHYSICIAN] - 10/09/21 10:45 am (Tuesday with /triage nurse)
[2021-10-01] MEDS ORDERED: CLOPIDOGREL 75 MG TAB PO SCH (09:00)
[2021-10-01] MEDS ORDERED: ASPIRIN 325 MG TAB PO SCH (09:00)
[2021-10-01 10:28] VITALS: BP 92/57; PULSE 68; RESP 18; TEMP 97.6
--- NOTE | 2021-10-01 11:15 | CA ---
Transthoracic Echo Report Name: Larry Graves Age: 21 Gender: F : 2000 Exam Date: 10/01/2021 08:10 Exam Location: [facility] Ht (in): 64 Wt (lb): 141 Ordering Physician: Srinath Kelly MD Attending/Referring Phys: [employer] Laura Yun RDCS Procedure CPT: Indications: Post ASD/PFO Insertion Cardiac Hx: PFO CLOSURE Technical Quality: Good Contrast 1: Total Dose (mL): Contrast 2: Total Dose (mL): MEASUREMENTS (Male / Female) Normal Values 2D ECHO LV Diastolic Diameter PLAX 3.3 cm 4.2 - 5.9 / 3.9 - 5.3 cm LV Systolic Diameter PLAX 2.2 cm IVS Diastolic Thickness 1.0 cm 0.6 - 1.0 / 0.6 - 0.9 cm LVPW Diastolic Thickness 0.8 cm 0.6 - 1.0 / 0.6 - 0.9 cm LV Relative Wall Thickness 0.6 FINDINGS Left Ventricle Mildly increased septal wall thickness. Left ventricular ejection fraction is estimated at 55-60 %. Limited for pfo closure device. Right Ventricle Right Atrium Left Atrium PFO/ASD closure device seen with no shunt. Mitral Valve Aortic Valve Tricuspid Valve Pulmonic Valve Pericardium Aorta CONCLUSIONS 1. Normal left ventricle size and systolic function 2. Evidence of intra-atrial device closure with no shunting Previewed by: Dr. Fabrice Garza MD (Electronically Signed) Final Date: 01 October 2021 11:14
--- NOTE | 2021-10-01 12:07 | P.CONS ---
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 Patient was seen by hematology and recommended closure of the PFO,patient also has past medical history of Chiari malformation status post surgical correction done at [facility] in [place] in 2018, chronic headaches, PTSD, generalized anxiety disorder and depression, kidney stones.patient has been brought in the hospital over the care of Dr. Kelly status post percutaneous closer of fenestrated anterior atrial septum. Patient has been seen by Dr. Kelly this morning clear for discharge. Patient denies having any chest pain, shortness of breath, palpitations, lightheadedness or dizziness. She denies having any headache. REVIEW OF SYSTEMS Constitutional: No fever, no chills, no night sweats. No weight change. No weakness, fatigue or lethargy. No daytime sleepiness. EENT: No headache. No blurred vision or double vision, no loss of vision. No loss of Hearing, no ringing in the ears, no dizziness. No nasal drainage or congestion. No epistaxis. No sore throat. Lungs: No shortness of breath, cough, no sputum production. No wheezing. Cardiovascular: No chest pain, no lower extremity edema. No palpitations. No paroxysmal nocturnal dyspnea. No orthopnea. No lightheadedness or dizziness. No syncopal episodes. Abdominal: No abdominal pain. No nausea, vomiting. No diarrhea. No constipation. No bloody or tarry stools. No loss of appetite. Genitourinary: No dysuria, increased frequency, urgency. No urinary retention. Musculoskeletal: No myalgias. No muscle weakness, no gait dysfunction, no frequent falls. No back pain. No neck pain. Integumentary: No wounds, no lesions. No rash or pruritus. No unusual bruising. No change in hair or nails. Neurologic: No aphasia. No facial droop. No change in mentation. No head injury. No headache. No paralysis. No paresthesia. Psychiatric: No depression. No anxiety. No mood swings. Endocrine: No abnormal blood sugars. No weight change. No excessive sweating or thirst. No cold intolerance. SOCIAL HISTORY Patient smoked for 1 year one pack per day. Patient has very rare alcohol intake. She is utilizing marijuana on a regular basis, no illicit drug use.patient lives with her long-term boyfriend. She works as a office cashier. FAMILY HISTORY mother is alive with history of fibromyalgia and mental health issues such as depression. Father is alive at age 45 with history of alcohol abuse. Patient has 3 half-brothers and one half-sister with no major medical problems. Patient is one daughter with no major medical problems. PHYSICAL EXAMINATION Gen: This is a 21-year-old female. She is resting in bed appears to be comfortable and in no acute distress. HEENT: Head is atraumatic, normocephalic. Pupils equal, round. Sclerae is anicteric. NECK: Supple. No JVD. No lymphadenopathy. No thyromegaly. LUNGS: Clear to auscultation. No wheezes or rhonchi. No intercostal retractions. HEART: Regular rate and rhythm. No murmur. ABDOMEN: Soft. Bowel sounds are present. No masses. No tenderness. EXTREMITIES: No pedal edema. No calf tenderness. NEUROLOGICAL: Patient is awake, alert and oriented x3. Cranial nerves 2 through 12 are grossly intact. ASSESSMENT AND PLAN PFO status post percutaneous closure. 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 -Chiari malformation s/p surgical repair -Headaches -Kidney stones DISCHARGE PLAN Home today Impression and plan of care have been directed as dictated by the signing physician. Carlie Hart nurse practitioner acting as scribe for signing physician. Past Medical History Past Medical History: Asthma, CVA/TIA Additional Past Medical History / Comment(s): Chiari malformation-repaired, migraines, "When I stand up fast my heart rate yesi rockets, dizzy, lightheaded and my vision goes black." Hx CVA 07/26/20, occasional heart palpitations, chronic UTI's, kidney stones History of Any Multi-Drug Resistant Organisms: None Reported Past Surgical History: Adenoidectomy, Section, Ear Surgery, Tonsillectomy Additional Past Surgical History / Comment(s): Chiari malformation repaired. cyst removed from rt side of face. PFO close and device 09/30/21 with [facility] Past Anesthesia/Blood Transfusion Reactions: No Reported Reaction Smoking Status: Former smoker - Past Family History Mother Family Medical History: Hypertension Medications and Allergies Home Medications Medication Instructions Recorded Confirmed Type acetaZOLAMIDE [Diamox Sequels] 500 mg PO HS 07/26/20 09/30/21 History Atorvastatin [Lipitor] 40 mg PO HS #30 tab 07/28/20 09/30/21 Rx Albuterol Inhaler [Ventolin Hfa 1 puff INHALATION DAILY PRN 09/30/20 09/30/21 History Inhaler] Escitalopram [Lexapro] 5 mg PO HS 02/25/21 09/30/21 History Apixaban [Eliquis] 2.5 mg PO BID #180 tab 10/01/21 Rx Clopidogrel [Plavix] 75 mg PO DAILY #90 tablet 10/01/21 Rx Allergies Allergy/AdvReac Type Severity Reaction Status Date / Time amoxicillin Allergy Rash/Hives Verified 09/30/21 06:28 Penicillins Allergy Rash/Hives Verified 09/30/21 06:28 seafood Allergy Swelling Uncoded 09/30/21 06:28 Physical Exam Vitals: Vital Signs Temp Pulse Pulse Resp BP BP Pulse Ox 10/01/21 04:02 66 16 91/54 97 10/01/21 00:04 72 107/59 100 09/30/21 21:25 81 09/30/21 20:07 97.9 F 81 18 97/63 99 09/30/21 16:05 97.9 F 69 16 91/55 100 09/30/21 16:03 69 16 09/30/21 16:00 97.9 F 69 16 91/55 100 09/30/21 15:45 97.9 F 69 16 91/55 100 09/30/21 12:52 69 16 103/61 98 09/30/21 11:52 66 16 101/60 98 09/30/21 10:52 64 16 100/62 97 09/30/21 10:22 67 16 96/56 99 09/30/21 09:52 66 16 95/52 98 09/30/21 09:37 64 16 102/60 99 09/30/21 09:22 66 16 104/56 99 09/30/21 09:07 87 16 99/64 99 Intake and Output 09/30/21 10/01/21 10/01/21 22:59 06:59 14:59 Intake Total 660 Balance 660 Intake: Oral 660 Other: Voiding Method Toilet # Voids 1 1 Weight 64 kg
== END 2021-10-01 13:23 | disposition home or self-care (01) ==
LOC: CATHCVL 05:58 → 3SCARD 08:55 → CATHCVL 10-01 13:23
PROVIDERS: ATTEND Internal Medicine Interventional Cardiology
DX: Q21.1 Atrial septal defect (principal); I74.4 Embolism and thrombosis of arteries of extremities, unspecified; Z86.73 Personal history of transient ischemic attack (TIA), and cerebral infarction without residual deficits; Z79.02 Long term (current) use of antithrombotics/antiplatelets; Z79.82 Long term (current) use of aspirin; Z88.0 Allergy status to penicillin; Z79.01 Long term (current) use of anticoagulants; Z79.899 Other long term (current) drug therapy
CPT/HCPCS: 93308; 93581; 86900; 86901; 86850; 81025; 87635; 71046; C1769 ×5; C1894; C1817; C1760; C1759; J2250; J0690; J2001; J3010; J1644; Q9967

== ENCOUNTER 2021-10-04 19:20 | Emergency (ER) | payer OTHER ==
[2021-10-04 21:54] LABS: Basophils # (A) 0.1 k/uL (0-0.2); Basophils % (A) 1 %; Eosinophils # (A) 0.1 k/uL (0-0.7); Eosinophils % (A) 1 %; HCT 42.7 % (34.0-46.0); Lymphocytes # (A) 3.9 k/uL (1.0-4.8); Lymphocytes % (A) 40 %; MCH 28.3 pg (25.0-35.0); MCHC 32.8 g/dL (31.0-37.0); MCV 86.4 fL (80.0-100.0); Mean Platelet Volume 7.6; Monocytes # (A) 0.5 k/uL (0-1.0); Monocytes % (A) 5 %; Neutrophils % (A) 52 %; Platelet Count 184 k/uL (150-450); RBC 4.94 m/uL (3.80-5.40); RDW 12.5 % (11.5-15.5); WBC 9.8 k/uL (3.8-10.6)
[2021-10-04 22:04] LABS: Partial Thromboplastin Time 24.3 sec (22.0-30.0); Prothrombin Time 11.1 sec (9.0-12.0)
[2021-10-04 22:14] LABS: ALT 15 U/L (4-34); AST 25 U/L (14-36); African American GFR (CKD) >90 (>60 ml/min/1.73 sqM); Albumin 4.5 g/dL (3.5-5.0); Alkaline Phosphatase 65 U/L (38-126); Anion Gap 9 mmol/L; Blood Urea Nitrogen 13 mg/dL (7-17); Calcium 9.2 mg/dL (8.4-10.2); Carbon Dioxide 21 mmol/L (22-30); Chloride 109 mmol/L (98-107); Glucose 85 mg/dL (74-99); Non-African American GFR(CKD) >90 (>60 ml/min/1.73 sqM); Potassium 3.7 mmol/L (3.5-5.1); Sodium 139 mmol/L (137-145); Total Bilirubin 0.7 mg/dL (0.2-1.3); Total Protein 7.2 g/dL (6.3-8.2)
--- NOTE | 2021-10-04 23:25 | US ---
EXAMINATION TYPE: US lower ext pseudo artery RT DATE OF EXAM: 10/04/2021 COMPARISON: NONE CLINICAL HISTORY: PSA. Patient had cardiac catheter procedure on the right groin on 09/30/21. Patient feels a cold sensation in her leg. EXAM PERFORMED: Grayscale and color Doppler duplex imaging performed of the groin, post cardiac carlitos ter to assess for pseudoaneurysm. SIDE PERFORMED: Right Color and Waveform Doppler performed to assess for the presence of pseudoaneurysm; Is there ultrasound evidence of a pseudoaneurysm: Scanned right groin. Arterial branch was seen that appears to branch from the right proximal femoral artery, no to-and-fro pattern was seen, however. N o pulsatile mass or yin harvey sign was seen. Is there evidence of AV shunting: no Is there a fluid collection present: no Hypoechoic area with hyperechoic center seen in the right groin: 1.6 x 1.2 x 0.6 cm. IMPRESSION: Exam fails to demonstrate a pseudoaneurysm. Right inguinal lymph node is demonstrated. No pathologic fluid collection.
[2021-10-04 23:51] VITALS: BP 92/62; PULSE 73; RESP 20
--- NOTE | 2021-10-05 00:12 | ED ---
Recheck HPI - General Chief Complaint: Recheck/Abnormal Lab/Rx Stated Complaint: S/P surgical procedure Time Seen by Provider: 10/05/21 00:02 Source: patient, RN notes reviewed, old records reviewed Mode of arrival: ambulatory Limitations: no limitations - History of Present Illness Initial Comments: This is a 19-year-old female who presents today for evaluation regards to right leg feeling cold. Patient does have a complex recent medical history which she did have heart catheterization for a patent foramen ovale. Patient has no chest pain or shortness of breath currently. No other complaints aside from feeling cold and sent her right leg and feeling anxious. Patient's history of asthma history of migraines history of recurrent malformation MD Complaint: wound re-check -: days(s) Returns Today for: persistent/worsening pain related to initial visit, other (Right leg feeling cold) Symptoms Since Prior Visit: worsening pain Context: planned re-check Associated Symptoms: chills Treatments Prior to Arrival: other (0) - Related Data Home Medications Medication Instructions Recorded Confirmed acetaZOLAMIDE [Diamox Sequels] 500 mg PO HS 07/26/20 09/30/21 Albuterol Inhaler [Ventolin Hfa 1 puff INHALATION DAILY PRN 09/30/20 09/30/21 Inhaler] Escitalopram [Lexapro] 5 mg PO HS 02/25/21 09/30/21 Previous Rx's Medication Instructions Recorded Atorvastatin [Lipitor] 40 mg PO HS #30 tab 07/28/20 Apixaban [Eliquis] 2.5 mg PO BID #180 tab 10/01/21 Clopidogrel [Plavix] 75 mg PO DAILY #90 tablet 10/01/21 Allergies Allergy/AdvReac Type Severity Reaction Status Date / Time amoxicillin Allergy Rash/Hives Verified 10/04/21 19:50 Penicillins Allergy Rash/Hives Verified 10/04/21 19:50 seafood Allergy Swelling Uncoded 10/04/21 19:50 Review of Systems ROS Statement: Those systems with pertinent positive or pertinent negative responses have been documented in the HPI. ROS Other: All systems not noted in ROS Statement are negative. Past Medical History Past Medical History: Asthma, CVA/TIA Additional Past Medical History / Comment(s): Chiari malformation, migraines, "When I stand up fast my heart rate yesi rockets, dizzy, lightheaded and my vision goes black." Hx CVA 07/26/20, occasional heart palpitations, chronic UTI's History of Any Multi-Drug Resistant Organisms: None Reported Past Surgical History: Adenoidectomy, Section, Ear Surgery, Tonsi llectomy Additional Past Surgical History / Comment(s): Chiari malformation repaired. cyst removed from rt side of face. PFO close and device 09/30/21 with [facility] Past Anesthesia/Blood Transfusion Reactions: No Reported Reaction Past Psychological History: Anxiety, Depression, PTSD Smoking Status: Former smoker - Past Family History Mother Family Medical History: Hypertension General Exam Limitations: no limitations General appearance: alert, in no apparent distress, anxious Head exam: Present: atraumatic, normocephalic, normal inspection Eye exam: Present: normal appearance, PERRL, EOMI. Absent: scleral icterus, conjunctival injection, periorbital swelling ENT exam: Present: normal exam, mucous membranes moist Neck exam: Present: normal inspection. Absent: tenderness, meningismus, lymphadenopathy Respiratory exam: Present: normal lung sounds bilaterally. Absent: respiratory distress, wheezes, rales, rhonchi, stridor Cardiovascular Exam: Present: normal rhythm, tachycardia, normal heart sounds. Absent: systolic murmur, diastolic murmur, rubs, gallop, clicks GI/Abdominal exam: Present: soft, normal bowel sounds. Absent: distended, tenderness, guarding, rebound, rigid Extremities exam: Present: normal inspection, full ROM, normal capillary refill. Absent: tenderness, pedal edema, joint swelling, calf tenderness Back exam: Present: normal inspection Neurological exam: Present: alert, oriented X3, CN II-XII intact Psychiatric exam: Present: normal affect, normal mood Skin exam: Present: warm, dry, intact, normal color. Absent: rash Course Vital Signs 10/04/21 10/04/21 19:44 23:50 Temperature 98.5 F Pulse Rate 134 H 73 Respiratory 28 H 20 Rate Blood Pressure 104/67 92/62 O2 Sat by Pulse 100 100 Oximetry - Reevaluation(s) Reevaluation #1: 10/05/21 00:12 Medical records reviewed Reevaluation #2: 10/05/21 00:12 Patient does have good pulses right lower extremity Reevaluation #3: 10/05/21 00:12 Patient informed results questions answered Medical Decision Making - Medical Decision Making 21 female to the emergency department for evaluation. Patient recently has heart catheterization for patent foramen ovale. Patient presents today with right lower extremity chills. Ultrasound negative. Pulses right lower extrem ity. Patient can be discharged - Lab Data Result diagrams: 10/04/21 19:51 10/04/21 19:51 Lab Results 10/04/21 10/04/21 10/04/21 Range/Units 19:51 19:51 19:51 WBC 9.8 (3.8-10.6) k/uL RBC 4.94 (3.80-5.40) m/uL Hgb 14.0 (11.4-16.0) gm/dL Hct 42.7 (34.0-46.0) % MCV 86.4 (80.0-100.0) fL MCH 28.3 (25.0-35.0) pg MCHC 32.8 (31.0-37.0) g/dL RDW 12.5 (11.5-15.5) % Plt Count 184 (150-450) k/uL MPV 7.6 Neutrophils % 52 % Lymphocytes % 40 % Monocytes % 5 % Eosinophils % 1 % Basophils % 1 % Neutrophils # 5.0 (1.3-7.7) k/uL Lymphocytes # 3.9 (1.0-4.8) k/uL Monocytes # 0.5 (0-1.0) k/uL Eosinophils # 0.1 (0-0.7) k/uL Basophils # 0.1 (0-0.2) k/uL PT 11.1 (9.0-12.0) sec INR 1.0 (<1.2) APTT 24.3 (22.0-30.0) sec Sodium 139 (137-145) mmol/L Potassium 3.7 (3.5-5.1) mmol/L Chloride 109 H (98-107) mmol/L Carbon Dioxide 21 L (22-30) mmol/L Anion Gap 9 mmol/L BUN 13 (7-17) mg/dL Creatinine 0.83 (0.52-1.04) mg/dL Est GFR (CKD-EPI)AfAm >90 (>60 ml/min/1.73 sqM) Est GFR (CKD-EPI)NonAf >90 (>60 ml/min/1.73 sqM) Glucose 85 (74-99) mg/dL Calcium 9.2 (8.4-10.2) mg/dL Total Bilirubin 0.7 (0.2-1.3) mg/dL AST 25 (14-36) U/L ALT 15 (4-34) U/L Alkaline Phosphatase 65 (38-126) U/L Total Protein 7.2 (6.3-8.2) g/dL Albumin 4.5 (3.5-5.0) g/dL - Radiology Data Radiology results: report reviewed (Ultrasound right groin has no evidence of PSA), image reviewed Disposition Clinical Impression: Postoperative pain Disposition: HOME SELF-CARE Condition: Good Instructions (If sedation given, give patient instructions): Normal Exam (ED) Is patient prescribed a controlled substance at d/c from ED?: No Referrals: Devendra Goode MD [Primary Care Provider] - 1-2 days Time of Disposition: 00:15
[2021-10-05 00:45] VITALS: TEMP 97.8
== END 2021-10-05 00:44 | disposition home or self-care (01) ==
LOC: EC 19:20
DX: G89.18 Other acute postprocedural pain (principal); J45.909 Unspecified asthma, uncomplicated; Z86.73 Personal history of transient ischemic attack (TIA), and cerebral infarction without residual deficits; Z87.891 Personal history of nicotine dependence; Z88.0 Allergy status to penicillin; Z91.013 Allergy to seafood
CPT/HCPCS: 36415; 80053; 85025; 85610; 85730; 93005; 93975; 99284

== ENCOUNTER → 2021-10-22 | Outpatient (CLI) | payer OTHER ==
[2021-10-22 08:19] VITALS: BP 112/62; PULSE 96; RESP 16
--- NOTE | 2021-10-22 08:33 | P.PN ---
Subjective Progress Note Date: 10/22/21 This is 20 years old female with a chronic history of severe neck pain and headache, she had chronic headaches since childhood, she had Arnold-Chiari malformation. Which was done in 2018, report after the surgery she started having neck pain associated with headache, previously we have done occipital ner ve block Bilaterlly, which provided her with excellent pain relief for a few weeks ,patient denies any numbness or tingling sensation in the upper extremity she denies any motor or sensory deficit, and she reported that the neck pain and headache is from the base of the skull to the top, the neck pain increases with any neck movement and any activity ,she had this stroke, and she is currently on Eliquis and Plavix (she had PFO repair ), and need to be on these medications for 3 more months Physical Examinations : -Constitutiona : Cooperative , not in acute distress . -HEENT : nech : supple , no Lymphadenopathy , normal thyroid size . : eyes : no ptosis , no icterus, no photop hobia . - neurologic : Cranial nerve II to XII intact , no focal neurological deffecit . -psychatric : alert , oriented X 3 , appropriate affect , intact judgment and insight . -Lymphatic : no Lymphadenopathy . - musculoskeltal : Cervical Spine motor stregnth in the deltoid and biceps, normal right side , normal Left side motor stregnth biceps and the wrist extensors normal right side ,normal left side . motor stregnth in the triceps muscle . normal Right side , normal Left side deep tendon reflexes normal at the biceps , normal at Brachioradialis , normal at triceps. cervical facet loading test: Positive Bilaterally sever Tenderness over the occipital nerve bilaterally Lumber spine moter stegnth lower extremities ,thigh and legs 5/5 Right side , 5/5 Left side Results Comments: MRI of the brain negative Computed tomography scan of the brain negative Assessment and plan=1-occipital neuralgia. 2-cervicogenic headache. 3-cervical spondylosis. Patient had good relief after occipital nerve block. Patient currently on anticoagulation plavix ,and eliquis We will order MRI of the cervical spine to confirm facetogenic etiology. In the future we can consider doing diagnostic medial branch block cervical at C2-C3 , C3 4 Patient could benefit from Voltaren gel 1 % to be applied to the cervical area twice daily Objective - Vital Signs Vital signs: Vital Signs Temp Pulse 96 10/22/21 08:10 Resp 16 10/22/21 08:10 BP 112/62 10/22/21 08:10 Pulse Ox 96 10/22/21 08:10 FiO2 Intake & Output 10/21/21 10/22/21 10/22/21 18:59 06:59 18:59 Weight 61.235 kg
== END ==
LOC: PNWHC3 07:55
PROVIDERS: ATTEND Anesthesiology
DX: M54.81 Occipital neuralgia (principal); G44.86 Cervicogenic headache; M47.812 Spondylosis without myelopathy or radiculopathy, cervical region; Z88.0 Allergy status to penicillin; Z88.1 Allergy status to other antibiotic agents; Z91.013 Allergy to seafood; Z87.891 Personal history of nicotine dependence
CPT/HCPCS: 99211

== ENCOUNTER → 2021-11-19 | Outpatient (CLI) | payer OTHER ==
[2021-11-19 09:21] VITALS: BP 99/57; PULSE 108; RESP 18; TEMP 98.6
--- NOTE | 2021-11-19 14:10 | P.PAINPG ---
PQRS Measure Charge Sheet Comment: A 21 yr old female with a history of severe and chronic TERRY & neck pain secondary to cervical degenerative disc diseases and spondylosis with facet arthropathy without myelopathy and Arnold - Chiari Malformation presents today for TERRY pain and MRI results. Pain level is currently at 6 /10 in intensity, constant, localized ot base of neck, sharp/ shooting towards the scalp. Pain is provoked up to 10/10 in intensity w hyperextension. Pain is alleviated with home exercises as tolerated, heat, ice, OTC medications, Voltaren gel, repositioning and rest. MRI of cervical spine reviewed w pt. Interventional pain procedures completed include BL GISSELLE injection x1 Patient is currently on DENIES Patient denies any side effects of the medication(s), denies excessive drowsiness or sleepiness, denies suicidal ideation and reports that the current pain medication is helping to control the pain and improve activities of daily living. Patient denies any motor or sensory deficits. Patient denies any fever or night sweats, denies any change in the bowel movements or urination. Physical Examination: -Constitutional: Cooperative. Not in acute distress . - Neurologic: Cranial nerve II to XII intact. No focal neurological deficits. - Psychatric: Alert & oriented x 3. Matching mood & appropriate affect. Judgment and insight intact. - Musculoskeletal: Cervical spine: +BL C2-C3, C3-C4 Jump Reflex w palpation over facets Muscle bulk/ tone/ strength in the bilateral upper extremities normal Vertebral body tenderness to palpation over Spurling test positive Distraction test positive Facet loading test positive Thoracic spine Muscle bulk / tone/ strength in the bilateral paraspinal muscles normal Vertebral body tender to palpation over Facet loading test positive Lumbar spine: Motor bulk/ tone/ strength lower extremities , thigh and legs : 5/5 Deep tendon reflexes : Normal Knee Jerk. Normal Ankle Jerk . Vertebral body tenderness to palpation over Lumbar Facet Loading Test positive Straight Leg Raise: positive at 30 degrees right side/ left side Gaenslen's Test positive Sacral spine : Severe tenderness over the Sacroiliac joint: right side / left side Range of motion: Flexion of the lumbar spine <60 degrees Range of motion: Extension of the lumbar spine <20 degrees Gaenslen's Test positive Roman's Test positive Broderick test: positive right side / left side Thigh Thrust Test Sacral Thrust Test Imaging: MRI of the cervical spine from 11/10/21 reviewed Assessment and plan: Chronic neck pain secondary to cervical degenerative disc disease, spondylosis with facet arthropathy without myelopathy, cervicogenic TERRY Recommendation of BL MBB C2-C3, C3-C4 #1. Risks, benefits of procedure discussed and pt verbalized understanding. Admits to anticoagulant use (Eliquis, Plavix) or medical history of diabetes. Needs medical clearance from Dr Abrams from [facility], per pt. All patient questions answered MAPS reviewed and it was appropriate. I have spent less than 30 minutes on patient care today. Dr Scott was available by phone for the evaluation of this patient. The time was used to review the medical records including relevant urine studies and Prescription history (MAPs), review of the available imaging, evaluation and examination of the patient, coordination of care with the medical staff and if applicable referring physicians, as well as creation of the medical record PQRS Narrative: Smoking Status Former smoker Hx Alcohol Use (MH) Yes Home Medications: Ambulatory Orders acetaZOLAMIDE [Diamox Sequels] 500 mg PO HS 07/26/20 Atorvastatin [Lipitor] 40 mg PO HS #30 tab 07/28/20 Albuterol Inhaler [Ventolin Hfa Inhaler] 1 puff INHALATION DAILY PRN 09/30/20 Escitalopram [Lexapro] 5 mg PO HS 02/25/21 Apixaban [Eliquis] 2.5 mg PO BID #180 tab 10/01/21 Clopidogrel [Plavix] 75 mg PO DAILY #90 tablet 10/01/21 Controlled Substance Measures - Controlled Substance Measures Is patient prescribed a controlled substance at discharge?: No
== END ==
LOC: PNWHC3 08:54
PROVIDERS: ATTEND Specialist
DX: M50.122 Cervical disc disorder at C5-C6 level with radiculopathy (principal); G89.4 Chronic pain syndrome; E11.9 Type 2 diabetes mellitus without complications; Z87.891 Personal history of nicotine dependence; Z88.0 Allergy status to penicillin; Z88.1 Allergy status to other antibiotic agents; Z91.013 Allergy to seafood
CPT/HCPCS: 99211

== ENCOUNTER → 2022-01-14 | Outpatient (CLI) | payer OTHER ==
[2022-01-14 13:20] VITALS: BP 97/67; PULSE 111; RESP 18; TEMP 98.5
== END ==
LOC: PNWHC3 12:41
PROVIDERS: ATTEND Specialist
DX: M54.81 Occipital neuralgia (principal); Z88.0 Allergy status to penicillin; Z91.013 Allergy to seafood; Z87.891 Personal history of nicotine dependence
CPT/HCPCS: 99211

== ENCOUNTER → 2022-02-25 | Outpatient (CLI) | payer OTHER ==
[2022-02-25 10:42] VITALS: BP 89/50; PULSE 98; RESP 18; TEMP 98.2
--- NOTE | 2022-02-25 14:45 | P.PAINPG ---
PQRS Measure Charge Sheet Comment: A 21 yr old female with a history of severe and chronic neck pain secondary to cervical spondylosis with facet arthropathy without myelopathy presents today for evaluation. Pain level is at 9/10 in intensity, constant, dull/ achy in charcter w shooting towards the back of her head. Pain is provoked by st retching, heat, ice, cold weather. Pain is alleviated with sleep, medications (Tylenol), +THC products and rest. Interventional pain procedures completed include Denies Patient is currently on Tylenol Patient denies any side effects of the medication(s), denies excessive drowsiness or sleepiness, denies suicidal ideation and reports that the current pain medication is helping to control the pain and improve activities of daily living. Patient denies any motor or sensory deficits. Patient denies any fever or night sweats, denies any change in the bowel movements or urination. Physical Examination: -Constitutional: Cooperative. Not in acute distress . - Neurologic: Cranial nerve II to XII intact. No focal neurological deficits. - Psychatric: Alert & oriented x 3. Matching mood & appropriate affect. Judgment and insight intact. - Musculoskeletal: Cervical spine: Muscle bulk/ tone/ strength in the bilateral upper extremities normal Vertebral body tenderness to palpation over Spurling test positive Distraction test positive Facet loading test positive Thoracic spine Muscle bulk / tone/ strength in the bilateral paraspinal muscles normal Vertebral body tender to palpation over Facet loading test positive Lumbar spine: Motor bulk/ tone/ strength lower extremities , thigh and legs : 5/5 Deep tendon reflexes : Normal Knee Jerk. Normal Ankle Jerk . Vertebral body tenderness to palpation over Lumbar Facet Loading Test positive Straight Leg Raise: positive at 30 degrees right side/ left side Gaenslen's Test positive Sacral spine : Severe tenderness over the Sacroiliac joint: right side / left side Range of motion: Flexion of the lumbar spine <60 degrees Range of motion: Extension of the lumbar spine <20 degrees Gaenslen's Test positive Broderick test: positive right side / left side Thigh Thrust Test Sacral Thrust Test Assessment and plan: Chronic neck pain secondary to cervical spondylosis with facet arthropathy without myelopathy Pt to start PT after completion of her semester and thesis paper. Will return to this clinic within 6 wks for a re evaluation. All patient questions answered I have spent less than 30 minutes on patient care today. Dr Scott was available by phone for the evaluation of this patient. The time was used to review the medical records including relevant urine studies and Prescription history (MAPs), review of the available imaging, evaluation and examination of the patient, coordination of care with the medical staff and if applicable referring physicians, as well as creation of the medical record PQRS Narrative: Smoking Status Former smoker Hx Alcohol Use (MH) Yes Home Medications: Ambulatory Orders acetaZOLAMIDE [Diamox Sequels] 500 mg PO HS 07/26/20 Albuterol Inhaler [Ventolin Hfa Inhaler] 1 puff INHALATION DAILY PRN 09/30/20 Escitalopram [Lexapro] 5 mg PO HS 02/25/21 Controlled Substance Measures - Controlled Substance Measures Is patient prescribed a controlled substance at discharge?: No
== END ==
LOC: PNWHC3 09:59
PROVIDERS: ATTEND Specialist
DX: M47.812 Spondylosis without myelopathy or radiculopathy, cervical region (principal); G89.29 Other chronic pain; Z87.891 Personal history of nicotine dependence; Z88.1 Allergy status to other antibiotic agents; Z88.0 Allergy status to penicillin; Z91.013 Allergy to seafood
CPT/HCPCS: 99211

== ENCOUNTER → 2022-04-21 | Outpatient (CLI) | payer OTHER ==
[2022-04-21 12:58] VITALS: BP 133/74; PULSE 86; RESP 18; TEMP 98
--- NOTE | 2022-04-21 14:08 | P.PAINPG ---
PQRS Measure Charge Sheet Comment: A 22 yr old female with a history of severe and chronic neck pain secondary to cervical DDD and spondylosis with facet arthropathy without myelopathy presents today for neck pain evaluation. Pain level is provoked at 10/10 in intensity, constant, localized in the cervical spine, dull/ achy in character w shooting towards the scalp. Pain is provoked by hyperextension, climbing stairs. Pain is alleviated with injections, repositioning and rest. Interventional pain procedures completed include BL GISSELLE injections (Feb 2021) Patient is currently on DENIES Patient denies any side effects of the medication(s), denies excessive drowsiness or sleepiness, denies suicidal ideation and reports that the current pain medication is helping to control the pain and improve activities of daily living. Patient denies any motor or sensory deficits. Patient denies any fever or night sweats, denies any change in the bowel movements or urination. Physical Examination: -Constitutional: Cooperative. Not in acute distress . - Neurologic: Cranial nerve II to XII intact. No focal neurological deficits. - Psychatric: Alert & oriented x 3. Matching mood & appropriate affect. Judgment and insight intact. - Musculoskeletal: Cervical spine: BL GISSELLE TTP Muscle bulk/ tone/ strength in the bilateral upper extremities normal Vertebral body tenderness to palpation over Spurling test positive Distraction test positive Facet loading test positive Thoracic spine Muscle bulk / tone/ strength in the bilateral paraspinal muscles normal Vertebral body tender to palpation over Facet loading test positive Lumbar spine: Motor bulk/ tone/ strength lower extremities , thigh and legs : 5/5 Deep tendon reflexes : Normal Knee Jerk. Normal Ankle Jerk . Vertebral body tenderness to palpation over Lumbar Facet Loading Test positive Straight Leg Raise: positive at 30 degrees right side/ left side Gaenslen's Test positive Sacral spine : Severe tenderness over the Sacroiliac joint: right side / left side Range of motion: Flexion of the lumbar spine <60 degrees Range of motion: Extension of the lumbar spine <20 degrees Gaenslen's Test positive Broderick test: positive right side / left side Thigh Thrust Test Sacral Thrust Test Assessment and plan: Chronic neck pain secondary to cervical DDD, spondylosis with facet arthropathy without myelopathy Recommendation of PT x 6 wks re: M50.30 May return to the clinic within 6 wks for a re evaluation. All patient questions answered I have spent less than 30 minutes on patient care today. Dr Scott was available by phone for the evaluation of this patient. The time was used to review the medical records including relevant urine studies and Prescription history (MAPs), review of the available imaging, evaluation and examination of the patient, coordination of care with the medical staff and if applicable referring physicians, as well as creation of the medical record PQRS Narrative: Smoking Status Former smoker Hx Alcohol Use (MH) Yes Home Medications: Ambulatory Orders acetaZOLAMIDE [Diamox Sequels] 500 mg PO HS 07/26/20 Albuterol Inhaler [Ventolin Hfa Inhaler] 1 puff INHALATION DAILY PRN 09/30/20 Escitalopram [Lexapro] 5 mg PO HS 02/25/21 Controlled Substance Measures - Controlled Substance Measures Is patient prescribed a controlled substance at discharge?: No
== END ==
LOC: PNWHC3 11:49
PROVIDERS: ATTEND Specialist
DX: M47.812 Spondylosis without myelopathy or radiculopathy, cervical region (principal); M50.30 Other cervical disc degeneration, unspecified cervical region; G89.29 Other chronic pain; Z87.891 Personal history of nicotine dependence; Z88.0 Allergy status to penicillin; Z91.013 Allergy to seafood
CPT/HCPCS: 99211

== ENCOUNTER → 2022-06-16 | Outpatient (CLI) | payer OTHER ==
--- NOTE | 2022-06-16 15:13 | P.PAINPG ---
PQRS Measure Charge Sheet Comment: A 22 yr old female with a history of severe and chronic neck pain secondary to cervicogenic TERRY and occipital neuralgia presents today for TERRY. Pain level is provoked at 7/10 in intensity, constant, localized in the cervical spine, R>L, dull/ achy in character w shooting towards the R shoulder and top of scalp. Pain is provoked by lifting. Pain is alleviated with PT x 6 wks which she completed May 2022, PT integrated w massage x 6 wks which she completed May 2022, home stretching regimen, repositioning and rest. Interventional pain procedures completed include BL GISSELLE, BL MBB C2-C4 x1 Patient is currently on NONE Patient denies any side effects of the medication(s), denies excessive drowsiness or sleepiness, denies suicidal ideation and reports that the current pain medication is helping to control the pain and improve activities of daily living. Patient denies any motor or sensory deficits. Patient denies any fever or night sweats, denies any change in the bowel movements or urination. Physical Examination: -Constitutional: Cooperative. Not in acute distress . - Neurologic: Cranial nerve II to XII intact. No focal neurological deficits. - Psychatric: Alert & oriented x 3. Matching mood & appropriate affect. Judgment and insight intact. - Musculoskeletal: Cervical spine: +BL GISSELLE TTP, R>L Muscle bulk/ tone/ strength in the bilateral upper extremities normal Vertebral body tenderness to palpation over Spurling test positive Distraction test positive Facet loading test positive TTP Thoracic spine Muscle bulk / tone/ strength in the bilateral paraspinal muscles normal Vertebral body tender to palpation over Facet loading test positive TTP Lumbar spine: Motor bulk/ tone/ strength lower extremities , thigh and legs : 5/5 Deep tendon reflexes : Normal Knee Jerk. Normal Ankle Jerk . Vertebral body tenderness to palpation over Lumbar Facet Loading Test positive Straight Leg Raise: positive at 30 degrees right side/ left side Gaenslen's Test positive Sacral spine : Severe tenderness over the Sacroiliac joint: right side / left side Range of motion: Flexion of the lumbar spine <60 degrees Range of motion: Extension of the lumbar spine <20 degrees Gaenslen's Test positive R / L Broderick test: positive right side / left side Thigh Thrust Test positive R / L Sacral Thrust Test positive R/ L Assessment and plan: Chronic neck pain secondary to cervicogenic TERRY and occipital neuralgia Recommendation of BL GISSELLE injections. May need a series of injections for optimal pain relief. Risks, benefits of procedure discussed and pt verbalized understanding. Admits to anticoagulant use or medical history of diabetes. Protocol for discontinuation/ continuation of medications ira procedure discus sed. All questions answered. I have spent less than 30 minutes on patient care today. Dr Scott was available by phone for the evaluation of this patient. The time was used to review the medical records including relevant urine studies and Prescription history (MAPs), review of the available imaging, evaluation and examination of the patient, coordination of care with the medical staff and if applicable referring physicians, as well as creation of the medical record PQRS Narrative: Smoking Status Former smoker Hx Alcohol Use (MH) Yes Home Medications: Ambulatory Orders acetaZOLAMIDE [Diamox Sequels] 500 mg PO HS 07/26/20 Albuterol Inhaler [Ventolin Hfa Inhaler] 1 puff INHALATION DAILY PRN 09/30/20 Escitalopram [Lexapro] 5 mg PO HS 02/25/21 Controlled Substance Measures - Controlled Substance Measures Is patient prescribed a controlled substance at discharge?: No
[2022-06-16 15:51] VITALS: BP 107/72; PULSE 117; RESP 18; TEMP 97.9
== END ==
LOC: PNWHC3 14:01
PROVIDERS: ATTEND Specialist
DX: M54.81 Occipital neuralgia (principal); G44.86 Cervicogenic headache; G89.29 Other chronic pain; Z87.891 Personal history of nicotine dependence; Z88.0 Allergy status to penicillin; Z91.030 Bee allergy status
CPT/HCPCS: 99211

== ENCOUNTER 2022-08-10 12:38 | Day surgery (SDC) | payer OTHER ==
[2022-07-27 15:48] VITALS: BMI 23.6
[~2022-08-10 12:38] MED LIST changes: -ALPRAZolam 0.25 MG TAB PO PRN; -ALPRAZolam 0.5 MG TAB PO PRN; -ASPIRIN 325 MG TAB PO STA; -ATORVASTATIN 80 MG TAB PO STA; -HEPARIN SODIUM,PORCINE 10,000 UNIT in SODIUM CHLORIDE 0.9% 1,000 ML IRRIGATION PRN; -HEPARIN SODIUM,PORCINE 2,500 UNIT in SODIUM CHLORIDE 0.9% 250 ML IRRIGATION PRN; +LACTATED RINGERS 1,000 ML IV SCH; +LIDOCAINE 1% (10MG/ML) FOR IV START INTRADERMA PRN; -NITROGLYCERIN SL TABS 0.4 MG TAB SUBLINGUAL PRN
[2022-08-10 13:03] VITALS: TEMP 98
[2022-08-10] MEDS ORDERED: methylPREDNISolone ACETATE 80 MG/ML 1 ML VIAL ONE (13:04)
[2022-08-10] MEDS ORDERED: ROPIVACAINE 5 MG/ML 20 ML AMPULE ONE (13:04)
[2022-08-10] MEDS ORDERED: LACTATED RINGERS 1,000 ML IV ONE (13:10)
--- NOTE | 2022-08-10 13:10 | P.PCN ---
Date of Procedure: 08/10/22 Procedure(s) Performed: Preoperative diagnoses= 1- Greater occipital neuralgia, and headache. Postoperative diagnoses= 1-greater occipital neuralgia, and headache. Procedure= Bilateral Greater occipital nerve block Anesthesia= none . Estimated blood loss=minimal. Procedure indication= the patient had a history of severe chronic neck pain ,and headache, diagnosed with occipital neuralgia exam was positive for severe tenderness over the occipital nerve bilaterally, she will be a good candidate occipital nerve block, patient failed conservative management Procedure description= the patient was seen and identified in the preoperative holding area, risks and benefits and alternative of the procedure and possible complications discussed with the patient, and he agreed with the preceding, patient signed the consent, an IV was started, and vital signs were monitored and were stable throughout the procedure, patient was placed in the sitting position or table and the neck area was prepped and draped with a sterile fashion, vital signs were closely monitored during the procedure, 25-gauge needle advanced 1 inch lateral to the occipital protuberance on the right side, at the location of the right occipital nerve , then after negative aspiration for heme and CSF and there was no paresthesia during the injection, 6 ml of Robivacaine 0.5% and 40 mg of Depo-Medrol injected after negative aspiration, the needle removed, and the entire same procedure was repeated for the left Grea ter occipital nerve. Patient tolerated the procedure well without any complication, The patient returned to supine position after the back was cleaned and a Band- Aid applied, the patient transported to recovery room in stable condition and he was monitored for 30 minutes before he was discharged home and then patient was reexamined before going home and patient was discharged in stable condition and patient will follow up with the pain clinic in a few weeks.
[2022-08-10 13:23] VITALS: RESP 18
[2022-08-10 13:35] VITALS: BP 96/63; PULSE 82
== END 2022-08-10 13:33 | disposition home or self-care (01) ==
LOC: ORPAIN 12:38
PROVIDERS: ATTEND Specialist
DX: M54.81 Occipital neuralgia (principal); Z88.0 Allergy status to penicillin
CPT/HCPCS: 81025; 64405; J1040; J2795

== ENCOUNTER → 2022-09-01 | Outpatient (CLI) | payer OTHER ==
[2022-09-01 14:07] VITALS: BP 110/69; PULSE 96; RESP 18; TEMP 97.9
--- NOTE | 2022-09-01 15:51 | P.PAINPG ---
PQRS Measure Charge Sheet Comment: A 22 yr old female with a history of severe and chronic neck pain secondary to cervical DDD and spondylosis with facet arthropathy without myelopathy presents today for evaluation s/p BL GISSELLE injections. Pt states she experienced 80% pain relief x 3 wks s/p procedure. Pain level is provoked at 4 /10 in intensity, constant, localized in the cervical spine, dull in character w shooting towards the top of the head. Pain is provoked by over exertion. Pain is alleviated with PT w massage x 6 wks in May 2022, heat, medications, repositioning and rest. Interventional pain procedures completed include BL GISSELLE Patient is currently on DENIES Patient denies any side effects of the medication(s), denies excessive drowsiness or sleepiness, denies suicidal ideation and reports that the current pain medication is helping to control the pain and improve activities of daily living. Patient denies any motor or sensory deficits. Patient denies any fever or night sweats, denies any change in the bowel movements or urination. Physical Examination: -Constitutional: Cooperative. Not in acute distress . - Neurologic: Cranial nerve II to XII intact. No focal neurological deficits. - Psychatric: Alert & oriented x 3. Matching mood & appropriate affect. Judgment and insight intact. - Musculoskeletal: Cervical spine: Muscle bulk/ tone/ strength in the bilateral upper extremities normal Vertebral body tenderness to palpation over Spurling test positive Distraction test positive Facet loading test positive TTP Thoracic spine Muscle bulk / tone/ strength in the bilateral paraspinal muscles normal Vertebral body tender to palpation over Facet loading test positive TTP Lumbar spine: Motor bulk/ tone/ strength lower extremities , thigh and legs : 5/5 Deep tendon reflexes : Normal Knee Jerk. Normal Ankle Jerk . Vertebral body tenderness to palpation over Lumbar Facet Loading Test positive Straight Leg Raise: positive at 30 degrees right side/ left side Gaenslen's Test positive Sacral spine : Severe tenderness over the Sacroiliac joint: right side / left side Range of motion: Flexion of the lumbar spine <60 degrees Range of motion: Extension of the lumbar spine <20 degrees Gaenslen's Test positive R / L Broderick test: positive right side / left side Thigh Thrust Test positive R / L Sacral Thrust Test positive R/ L Assessment and plan: Chronic neck pain secondary to cervical DDD, spondylosis with facet arthropathy without myelopathy Pt exhibited sufficient and optimal pain relief s/p procedure. She will manage residual pain on her own and may return to clinic on an as needed basis. All questions answered. I have spent less than 30 minutes on patient care today. Dr Scott was available by phone for the evaluation of this patient. The time was used to review the medical records including relevant urine studies and Prescription history (MAPs), review of the available imaging, evaluation and examination of the patient, coordination of care with the medical staff and if applicable referring physicians, as well as creation of the medical record PQRS Narrative: Smoking Status Former smoker Hx Alcohol Use (MH) Yes Home Medications: Ambulatory Orders acetaZOLAMIDE [Diamox Sequels] 500 mg PO HS 07/26/20 Albuterol Inhaler [Ventolin Hfa Inhaler] 1 puff INHALATION DAILY PRN 09/30/20 Escitalopram [Lexapro] 0.5 tab PO HS 02/25/21 Aspirin [Adult Low Dose Aspirin EC] 81 mg PO HS 07/27/22 buPROPion [Wellbutrin] 75 mg PO HS 07/27/22 Controlled Substance Measures - Controlled Substance Measures Is patient prescribed a controlled substance at discharge?: No
== END ==
LOC: PNWHC3 13:46
PROVIDERS: ATTEND Specialist
DX: M50.30 Other cervical disc degeneration, unspecified cervical region (principal); M47.812 Spondylosis without myelopathy or radiculopathy, cervical region; G89.29 Other chronic pain; Z87.891 Personal history of nicotine dependence; Z88.0 Allergy status to penicillin; Z91.013 Allergy to seafood
CPT/HCPCS: 99211

== ENCOUNTER 2023-11-17 13:51 | Emergency (ER) | payer OTHER ==
[2023-11-17 14:21] VITALS: TEMP 98.2
--- NOTE | 2023-11-17 14:30 | ED ---
Female Urogenital HPI - General Source: patient, RN notes reviewed, old records reviewed Mode of arrival: ambulatory Limitations: no limitations <Murray Garcia - Last Filed: 11/17/23 16:32> <Juan Luis Ceja - Last Filed: 11/17/23 18:44> - General Chief complaint: Vaginal Bleeding Stated complaint: poss miscarriage - History of Present Illness Initial comments: QN-23 female to the ED with concerns of miscarriage, patient revently taken off a few different medications for the . Mild pain. Mild bleeding. (Murray Mabry) Dictation was produced using [employer] dictation software. please excuse any grammatical, word or spelling errors. Chief Complaint: 23-year-old female presents to the ER for vaginal bleeding History of Present Illness: Patient 23-year-old female she has no significant comorbidities states that she is around 6 weeks . States she started having some bleeding earlier today. Denies any cramping. She has not follow-up with BU[facility]ING SPECIALIST. She was recently diagnosed with UTI and taking cefuroxime for UTI. She is also reportedly dealing with a yeast infection that she has been using Monistat. States that her underwear was soaked with bleeding. States that the bleeding seems like it subsided. The ROS documented in this emergency department record has been reviewed and confirmed by me. Those systems with pertinent positive or negative responses have been documented in the HPI. All other systems are other negative and/or noncontributory. (Juan Luis Ceja) - Related Data Home Medications Medication Instructions Recorded Confirmed acetaZOLAMIDE [Diamox Sequels] 500 mg PO HS 07/26/20 08/05/22 Albuterol Inhaler [Ventolin Hfa 1 puff INHALATION DAILY PRN 09/30/20 08/05/22 Inhaler] Escitalopram [Lexapro] 0.5 tab PO HS 02/25/21 08/05/22 Aspirin [Adult Low Dose Aspirin EC] 81 mg PO HS 07/27/22 08/05/22 buPROPion [Wellbutrin] 75 mg PO HS 07/27/22 08/05/22 Allergies Allergy/AdvReac Type Severity Reaction Status Date / Time amoxicillin Allergy Rash/Hives Verified 11/17/23 14:21 Penicillins Allergy Rash/Hives Verified 11/17/23 14:21 seafood Allergy Swelling Uncoded 11/17/23 14:21 Review of Systems ROS Other: All systems not noted in ROS Statement are negative. <JoseMurray B - Last Filed: 11/17/23 16:32> ROS Other: All systems not noted in ROS Statement are negative. <BrennaJuan Luis D - Last Filed: 11/17/23 18:44> ROS Statement: Those systems with pertinent positive or pertinent negative responses have been documented in the HPI. Past Medical History Past Medical History: Asthma, CVA/TIA Additional Past Medical History / Comment(s): Chiari malformation, migraines, "When I stand up fast my heart rate yesi rockets, dizzy, lightheaded and my vision goes black." Hx CVA 07/26/20, occasional heart palpitations, chronic UTI's History of Any Multi-Drug Resistant Organisms: None Reported Past Surgical History: Adenoidectomy, Section, Ear Surgery, Tonsillectomy Additional Past Surgical History / Comment(s): Chiari malformation repaired. cys t removed from rt side of face. PFO closed and device 09/30/21 with [facility], pain clinic procedures Past Anesthesia/Blood Transfusion Reactions: No Reported Reaction Past Psychological History: Anxiety, Depression, PTSD Smoking Status: Former smoker Past Alcohol Use History: Occasional Past Drug Use History: None Reported - Past Family History Mother Family Medical History: Hypertension <JoseMurray - Last Filed: 11/17/23 16:32> General Exam Limitations: no limitations General appearance: alert, in no apparent distress Head exam: Present: atraumatic, normocephalic, normal inspection Eye exam: Present: normal appearance, PERRL, EOMI. Absent: scleral icterus, conjunctival injection, periorbital swelling ENT exam: Present: normal exam, mucous membranes moist Neck exam: Present: normal inspection. Absent: tenderness, meningismus, lymphadenopathy Respiratory exam: Present: normal lung sounds bilaterally. Absent: respiratory distress, wheezes, rales, rhonchi, stridor Cardiovascular Exam: Present: regular rate, normal rhythm, normal heart sounds. Absent: systolic murmur, diastolic murmur, rubs, gallop, clicks GI/Abdominal exam: Present: soft, normal bowel sounds. Absent: distended, tenderness, guarding, rebound, rigid Extremities exam: Present: normal inspection, full ROM, normal capillary refill. Absent: tenderness, pedal edema, joint swelling, calf tenderness Back exam: Present: normal inspection Neurological exam: Present: alert, oriented X3, CN II-XII intact Psychiatric exam: Present: normal affect, normal mood Skin exam: Present: warm, dry, intact, normal color. Absent: rash <Murray Garcia - Last Filed: 11/17/23 16:32> <Juan Luis Ceja - Last Filed: 11/17/23 18:44> - General Exam Comments Initial Comments: PHYSICAL EXAM: General Impression: Alert and oriented x3, not in acute distress HEENT: Normocephalic atraumatic, extra-ocular movements intact, pupils equal and reactive to light bilaterally, mucous membranes moist. Cardiovascular: Heart regular rate and rhythm Chest: Able to complete full sentences, no retractions, no tachypnea Abdomen: abdomen soft, non-tender, non-distended, no organomegaly Musculoskeletal: Pulses present and equal in all extremities, no peripheral edema Motor: no focal deficits noted Neurological: CN II-XII grossly intact, no focal motor or sensory deficits noted Skin: Intact with no visualized rashes Psych: Normal affect and mood Pelvic exam: Refused (Juan Luis Ceja) Course <Murray Garcia - Last Filed: 11/17/23 16:32> Vital Signs 11/17/23 11/17/23 14:18 17:50 Temperature 98.2 F Pulse Rate 112 H 77 Respiratory 18 16 Rate Blood Pressure 131/74 110/67 O2 Sat by Pulse 100 100 Oximetry - Reevaluation(s) Reevaluation #1: 11/17/23 14:03 QN completed by myself Dr Garcia (Murray Garcia) Medical Decision Making - Lab Data Result diagrams: 11/17/23 16:08 11/17/23 16:08 <Juan Luis Ceja - Last Filed: 11/17/23 18:44> - Medical Decision Making Was pt. sent in by a medical professional or institution (, PA, BELTING INSPECTOR, urgent care, hospital, or alf...) When possible be specific @ -No Did you speak to anyone other than the patient for history (EMS, parent, family, police, friend...)? What history was obtained from this source @ -No Did you review nursing and triage notes (agree or disagree)? Why? @ -I reviewed and agree with nursing and triage notes Were old charts reviewed (outside hosp., previous admission, EMS record, old EKG, old radiological studies, urgent care reports/EKG's, alf records)? Report findings @ -No old charts were reviewed Differential Diagnosis (chest pain, altered mental status, abdominal pain women, abdominal pain men, vaginal bleeding, musculoskeletal, weakness, fever, dyspnea, syncope, headache, dizziness, GI bleed, back pain, seizure, CVA, palpatations, mental health)? @ -Differential Vaginal Bleeding: Spontaneous , threatened , molar , ectopic , bloody show, incompetent cervix, abruptioplacenta, placenta previa, uterine rupture, dysfunctional uterine bleeding, hemorrhage, uterine fibroids, this is not meant to be an all-inclusive list. EKG interpreted by me (3pts min.). @ -None done X-rays interpreted by me (1pt min.). @ -None done CT interpreted by me (1pt min.). @ -None done U/S interpreted by me (1pt. min.). @ -Gestational sac in the uterus What testing was considered but not performed or refused? (CT, X-rays, U/S, labs)? Why? @ -None What meds were considered but not given or refused? Why? @ -None Was smoking cessation discussed for >3mins.? @ -No Were there social determinants of health that impacted care today? How? (Homelessness, low income, unemployed, alcoholism, drug addiction, transportation, low edu. Level, literacy, decrease access to med. care, assisted, rehab)? @ -No Was there de-escalation of care discussed even if they declined (Discuss DNR or withdrawal of care, Hospice)? DNR status @ -No What co-morbidities impacted this encounter? (DM, HTN, Smoking, COPD, CAD, Cancer, CVA, ARF, Chemo, Hep., AIDS, mental health diagnosis, sleep apnea, morbid obesity)? @ -None Was patient admitted / discharged? Hospital course, mention meds given and route, prescriptions, significant lab abnormalities, going to OR and other pertinent info. @ -23-year-old female presents with vaginal bleeding in . Vital signs are stable. Laboratory evaluation obtained. CBC metabolic panel was obtained. Beta quant is 140,000. Urinalysis shows no white blood cells. Ultrasound shows gestational sac which would suggest 5 weeks and 6 days . Patient reevaluated bedside at 6:43 PM found to be stable medical condition. At this point is unclear if patient is having viable versus threatened miscarriage. Case discussed with Dr. Hawk who will follow-up with patient in 2 days after lab work. Patient given return precautions for ectopic . Patient be discharged Did you discuss the management of the patient with other professionals (professionals i.e. , PA, BELTING INSPECTOR, lab, RT, psych nurse, social media developer, rn otolaryngology, teacher, school services officer, ed case manager)? Give summary @ -Yes, see above Was critical care preformed (if so, how long)? @ -No Undiagnosed new problem with uncertain prognosis? @ -No Drug Therapy requiring intensive monitoring for toxicity (Heparin, Nitro, Insulin, Cardizem)? @ -No Were any procedures done? @ -No Diagnosis/symptom? Acute, or Chronic, or Acute on Chronic? Uncomplicated (without systemic symptoms) or Complicated (systemic symptoms)? @ -Vaginal bleeding in Side effects of treatment? @ -No Exacerbation, Progression, or Severe Exacerbation? @ -No Poses a threat to life or bodily function? How? (Chest pain, USA, MA, pneumonia, PE, COPD, DKA, ARF, appy, cholecystitis, CVA, Diverticulitis, Homicidal, Suicidal, threat to staff... and all critical care pts) @ -yes (Juan Luis Ceja) - Lab Data Lab Results 11/17/23 11/17/23 11/17/23 Range/Units 16:05 16:08 16:08 WBC 8.3 (3.8-10.6) k/uL RBC 4.72 (3.80-5.40) m/uL Hgb 13.8 (11.4-16.0) gm/dL Hct 41.2 (34.0-46.0) % MCV 87.2 (80.0-100.0) fL MCH 29.2 (25.0-35.0) pg MCHC 33.5 (31.0-37.0) g/dL RDW 12.4 (11.5-15.5) % Plt Count 234 (150-450) k/uL MPV 7.3 Neutrophils % 65 % Lymphocytes % 26 % Monocytes % 5 % Eosinophils % 1 % Basophils % 0 % Neutrophils # 5.4 (1.3-7.7) k/uL Lymphocytes # 2.2 (1.0-4.8) k/uL Monocytes # 0.4 (0-1.0) k/uL Eosinophils # 0.1 (0-0.7) k/uL Basophils # 0.0 (0-0.2) k/uL Sodium 136 L (137-145) mmol/L Potassium 3.7 (3.5-5.1) mmol/L Chloride 106 (98-107) mmol/L Carbon Dioxide 24 (22-30) mmol/L Anion Gap 6 mmol/L BUN 8 (7-17) mg/dL Creatinine 0.54 (0.52-1.04) mg/dL Est GFR (CKD-EPI)AfAm >90 (>60 ml/min/1.73 sqM) Est GFR (CKD-EPI)NonAf >90 (>60 ml/min/1.73 sqM) Glucose 77 (74-99) mg/dL Calcium 9.7 (8.4-10.2) mg/dL Total Bilirubin 0.6 (0.2-1.3) mg/dL AST 32 (14-36) U/L ALT 19 (4-34) U/L Alkaline Phosphatase 48 (38-126) U/L Total Protein 7.2 (6.3-8.2) g/dL Albumin 4.5 (3.5-5.0) g/dL HCG, Quant 25376.6 mIU/mL Urine Color Urine Appearance (Clear) Urine pH (5.0-8.0) Ur Specific [place] (1.001-1.035) Urine Protein (Negative) Urine Glucose (UA) (Negative) Urine Ketones (Negative) Urine Blood (Negative) Urine Nitrite (Negative) Urine Bilirubin (Negative) Urine Urobilinogen (<2.0) mg/dL Ur Leukocyte Esterase (Negative) Urine RBC (0-5) /hpf Urine WBC (0-5) /hpf Ur Squamous Epith Cells (0-4) /hpf Urine Bacteria (None) /hpf Urine Mucus (None) /hpf Urine HCG, Qual (Not Detectd) Blood Type A Negative Blood Type Recheck A Neg Bld Type Recheck Status No Antibody Screen NEGATIVE Spec Expiration Date 11/20/2023230411/17/23 11/17/23 Range/Units 16:48 16:49 WBC (3.8-10.6) k/uL RBC (3.80-5.40) m/uL Hgb (11.4-16.0) gm/dL Hct (34.0-46.0) % MCV (80.0-100.0) fL MCH (25.0-35.0) pg MCHC (31.0-37.0) g/dL RDW (11.5-15.5) % Plt Count (150-450) k/uL MPV Neutrophils % % Lymphocytes % % Monocytes % % Eosinophils % % Basophils % % Neutrophils # (1.3-7.7) k/uL Lymphocytes # (1.0-4.8) k/uL Monocytes # (0-1.0) k/uL Eosinophils # (0-0.7) k/uL Basophils # (0-0.2) k/uL Sodium (137-145) mmol/L Potassium (3.5-5.1) mmol/L Chloride (98-107) mmol/L Carbon Dioxide (22-30) mmol/L Anion Gap mmol/L BUN (7-17) mg/dL Creatinine (0.52-1.04) mg/dL Est GFR (CKD-EPI)AfAm (>60 ml/min/1.73 sqM) Est GFR (CKD-EPI)NonAf (>60 ml/min/1.73 sqM) Glucose (74-99) mg/dL Calcium (8.4-10.2) mg/dL Total Bilirubin (0.2-1.3) mg/dL AST (14-36) U/L ALT (4-34) U/L Alkaline Phosphatase (38-126) U/L Total Protein (6.3-8.2) g/dL Albumin (3.5-5.0) g/dL HCG, Quant mIU/mL Urine Color Colorless Urine Appearance Clear (Clear) Urine pH 5.5 (5.0-8.0) Ur Specific [place] 1.011 (1.001-1.035) Urine Protein Negative (Negative) Urine Glucose (UA) Negative (Negative) Urine Ketones 2+ H (Negative) Urine Blood Moderate H (Negative) Urine Nitrite Negative (Negative) Urine Bilirubin Negative (Negative) Urine Urobilinogen <2.0 (<2.0) mg/dL Ur Leukocyte Esterase Negative (Negative) Urine RBC 13 H (0-5) /hpf Urine WBC 2 (0-5) /hpf Ur Squamous Epith Cells 1 (0-4) /hpf Urine Bacteria Occasional H (None) /hpf Urine Mucus Rare H (None) /hpf Urine HCG, Qual Detected (Not Detectd) Blood Type Blood Type Recheck Bld Type Recheck Status Antibody Screen Spec Expiration Date Disposition <Murray Garcia - Last Filed: 11/17/23 16:32> Is patient prescribed a controlled substance at d/c from ED?: No Time of Disposition: 18:36 <Juan Luis Ceja - Last Filed: 11/17/23 18:44> Clinical Impression: Threatened Disposition: HOME SELF-CARE Condition: Fair Instructions (If sedation given, give patient instructions): Threatened Miscarriage (ED) Referrals: Gini Hawk DO [Doctor of Osteopathic Medicine] - 1-2 days
--- NOTE | 2023-11-17 15:10 | US ---
EXAMINATION TYPE: Ultrasound OB <= 14 week fetus DATE OF EXAM: 11/17/2023 2:42 PM COMPARISON: NONE CLINICAL INDICATION: Female, 23 years old with history of vaginal bleeding 6 weeks .; bleedin g x 1 hour, , also has yeast infection and UTI EXAM PERFORMED: [facility] EXAM MEASUREMENTS: GESTATIONAL AGE / DATING Physician Established: Not yet established Dates by LMP: (5 weeks/6 days) EDC: 07/13/2024 Dates by First Scan: No previous this is first scan Dates by Current Scan for: (5 weeks/6 days) EDC: 07/13/2024 MATERNAL ANATOMY Uterus: 12.4 x 7.8 x 6.1cm Right Ovary: 3.1 x 2.8 x 2.2cm Left Ovary: 4.0 x 3.4 x 2.8cm Post CDS / Adnexa: wnl Presence of free fluid: no Presence of corpus luteal cyst: left ovary = 2.8 x 2.8 x 1.6cm Presence of subchorionic bleed: not seen today GESTATION / SURVEY CRL: not seen MSD: 1.2 (5 weeks/6 days) Yolk Sac (normal less than 6mm): 0.3cm IUP: gestational sac seen within uterus Date of LMP: 10/07/2023 Beta HcG (if available): not drawn yet IMPRESSION: 1. Gestational sac relating to an early intrauterine . This dates the at 5 weeks 6 days. However, no pole is identified at this time. Appropriate ultrasound follow-up to ensure the appearance of a viable pole with cardiac activity. 2. Otherwise, complete survey recommended at 18-20 weeks.
[2023-11-17 16:49] LABS: Basophils % (A) 0 %; Eosinophils # (A) 0.1 k/uL (0-0.7); Eosinophils % (A) 1 %; HCT 41.2 % (34.0-46.0); HGB 13.8 gm/dL (11.4-16.0); Lymphocytes # (A) 2.2 k/uL (1.0-4.8); Lymphocytes % (A) 26 %; MCH 29.2 pg (25.0-35.0); MCHC 33.5 g/dL (31.0-37.0); MCV 87.2 fL (80.0-100.0); Mean Platelet Volume 7.3; Monocytes # (A) 0.4 k/uL (0-1.0); Monocytes % (A) 5 %; Neutrophils # (A) 5.4 k/uL (1.3-7.7); Neutrophils % (A) 65 %; Platelet Count 234 k/uL (150-450); RBC 4.72 m/uL (3.80-5.40); RDW 12.4 % (11.5-15.5); WBC 8.3 k/uL (3.8-10.6)
[2023-11-17 16:53] LABS: ALT 19 U/L (4-34); AST 32 U/L (14-36); African American GFR (CKD) >90 (>60 ml/min/1.73 sqM); Albumin 4.5 g/dL (3.5-5.0); Alkaline Phosphatase 48 U/L (38-126); Anion Gap 6 mmol/L; Blood Urea Nitrogen 8 mg/dL (7-17); Calcium 9.7 mg/dL (8.4-10.2); Carbon Dioxide 24 mmol/L (22-30); Chloride 106 mmol/L (98-107); Glucose 77 mg/dL (74-99); Non-African American GFR(CKD) >90 (>60 ml/min/1.73 sqM); Potassium 3.7 mmol/L (3.5-5.1); Sodium 136 mmol/L (137-145); Total Bilirubin 0.6 mg/dL (0.2-1.3); Total Protein 7.2 g/dL (6.3-8.2)
[2023-11-17 17:09] LABS: HCG,Quantitative Serum 14014.6 mIU/mL
[2023-11-17 18:03] LABS: Appearance,Urine Clear (Clear); Bacteria,Urine Occasional /hpf; Bilirubin,Urine Negative (Negative); Blood,Urine Moderate (Negative); Color,Urine Colorless; Glucose,Urine (UA) Negative (Negative); Ketones,Urine 2+ (Negative); Leukocyte Esterase,Urine Negative (Negative); Mucus,Urine Rare /hpf; Nitrite,Urine Negative (Negative); PH, Urine 5.5 (5.0-8.0); Protein,Urine Negative (Negative); RBC,Urine 13 /hpf (0-5); Specific Gravity,Urine 1.011 (1.001-1.035); Squamous Epithelial Cell,Urine 1 /hpf (0-4); Urobilinogen,Urine <2.0 mg/dL (<2.0); WBC,Urine 2 /hpf (0-5)
[2023-11-17 18:56] VITALS: BP 122/74; PULSE 68; RESP 18
== END 2023-11-17 18:56 | disposition home or self-care (01) ==
LOC: EC 13:51
DX: N93.9 Abnormal uterine and vaginal bleeding, unspecified
CPT/HCPCS: 36415; 76801; 80053; 81001; 81025; 84702; 85025; 86850; 86900; 86901; 99284

== ENCOUNTER 2023-11-23 20:49 | Emergency (ER) | payer BC, OTHER ==
[2023-11-23 21:10] VITALS: BP 108/64; PULSE 72; RESP 16; TEMP 98.2
--- NOTE | 2023-11-23 21:50 | ED ---
General Adult HPI - General Chief complaint: Nausea/Vomiting/Diarrhea Stated complaint: vomiting,abd Pain-post miscarriage Time Seen by Provider: 11/23/23 21:00 Source: patient, RN notes reviewed Mode of arrival: ambulatory Limitations: no limitations - History of Present Illness Initial comments: This is a 23-year-old female who presents emergency department chief complaint of abdominal pain, nausea, vomiting and vaginal spotting. Patient states that she was evaluated emergency department and was informed that she had a possible miscarriage a few days ago. Patient has been unable to make an appointment with customer account executive. Patient states that the spotting is intermittent. She denies dysuria, hematuria, increase in urinary frequency or urgency, states that she does have a history of urinary tract infection was recently treated for 1. Denies fevers, chills. - Related Data Home Medications Medication Instructions Recorded Confirmed acetaZOLAMIDE [Diamox Sequels] 500 mg PO HS 07/26/20 08/05/22 Albuterol Inhaler [Ventolin Hfa 1 puff INHALATION DAILY PRN 09/30/20 08/05/22 Inhaler] Escitalopram [Lexapro] 0.5 tab PO HS 02/25/21 08/05/22 Aspirin [Adult Low Dose Aspirin EC] 81 mg PO HS 07/27/22 08/05/22 buPROPion [Wellbutrin] 75 mg PO HS 07/27/22 08/05/22 Allergies Allergy/AdvReac Type Severity Reaction Status Date / Time amoxicillin Allergy Rash/Hives Verified 11/23/23 21:10 Penicillins Allergy Rash/Hives Verified 11/23/23 21:10 seafood Allergy Swelling Uncoded 11/17/23 14:21 Review of Systems ROS Statement: Those systems with pertinent positive or pertinent negative responses have been documented in the HPI. ROS Other: All systems not noted in ROS Statement are negative. Past Medical History Past Medical History: Asthma, CVA/TIA Additional Past Medical History / Comment(s): Chiari malformation, migraines, "When I stand up fast my heart rate yesi rockets, dizzy, lightheaded and my vision goes black." Hx CVA 07/26/20, occasional heart palpitations, chronic UTI's History of Any Multi-Drug Resistant Organisms: None Reported Past Surgical History: Adenoidectomy, Section, Ear Surgery, Tonsillectomy Additional Past Surgical History / Comment(s): Chiari malformation repaired. cyst removed from rt side of face. PFO closed and device 09/30/21 with [facility], pain clinic procedures Past Anesthesia/Blood Transfusion Reactions: No Reported Reaction Past Psychological History: Anxiety, Depression, PTSD Smoking Status: Former smoker Past Alcohol Use History: Occasional Past Drug Use History: None Reported - Past Family History Mother Family Medical History: Hypertension General Exam - General Exam Comments Initial Comments: Visual Physical Exam Vital signs reviewed General: Well-appearing, nontoxic, no acute distress. Head: Normocephalic, atraumatic Eyes: PERRLA, EOMI ENT: Airway patent Chest: Nonlabored breathing Skin: No visual rash, normal skin tone Neuro: Alert and oriented 3 Musculoskeletal: No gross abnormalities Limitations: no limitations General appearance: alert, in no apparent distress Head exam: Present: atraumatic, normocephalic, normal inspection Eye exam: Present: normal appearance, PERRL, EOMI. Absent: scleral icterus, conjunctival injection, periorbital swelling ENT exam: Present: normal exam, mucous membranes moist Neck exam: Present: normal inspection. Absent: tenderness, meningismus, l ymphadenopathy Respiratory exam: Present: normal lung sounds bilaterally. Absent: respiratory distress, wheezes, rales, rhonchi, stridor Cardiovascular Exam: Present: regular rate, normal rhythm, normal heart sounds. Absent: systolic murmur, diastolic murmur, rubs, gallop, clicks GI/Abdominal exam: Present: soft, tenderness (Suprapubic), normal bowel sounds. Absent: distended, guarding, rebound, rigid Extremities exam: Present: normal inspection, full ROM, normal capillary refill. Absent: tenderness, pedal edema, joint swelling, calf tenderness Back exam: Present: normal inspection Neurological exam: Present: alert, oriented X3, CN II-XII intact Skin exam: Present: warm, dry, intact, normal color. Absent: rash Course Vital Signs 11/23/23 21:07 Temperature 98.2 F Pulse Rate 72 Respiratory 16 Rate Blood Pressure 108/64 O2 Sat by Pulse 97 Oximetry Medical Decision Making - Medical Decision Making Was pt. sent in by a medical professional or institution (, PA, FARM TECHNICIAN, urgent care, hospital, or half-way...) When possible be specific @ -No Did you speak to anyone other than the patient for history (EMS, parent, family, police, friend...)? What history was obtained from this source @ -No Did you review nursing and triage notes (agree or disagree)? Why? @ -I reviewed and agree with nursing and triage notes Were old charts reviewed (outside hosp., previous admission, EMS record, old EKG, old radiological studies, urgent care reports/EKG's, half-way records)? Report findings @ -I reviewed the patient's previous emergency department visit note where an ultrasound completed that revealed a intrauterine gestation however there was no cardiac activity measured at this time. Patient was advised to follow-up with OB outpatient for further evaluation. Differential Diagnosis (chest pain, altered mental status, abdominal pain women, abdominal pain men, vaginal bleeding, weakness, fever, dyspnea, syncope, headache, dizziness, GI bleed, back pain, seizure, CVA, palpatations, mental health, musculoskeletal)? @ -Differential Vaginal Bleeding: Spontaneous , threatened , molar , ectopic , bloody show, incompetent cervix, abruptioplacenta, placenta previa, uterine rupture, dysfunctional uterine bleeding, hemorrhage, uterine fibroids, this is not meant to be an all-inclusive list. EKG interpreted by me (3pts min.). @ -None X-rays interpreted by me (1pt min.). @ -None done CT interpreted by me (1pt min.). @ -None done U/S interpreted by me (1pt. min.). @ -Transvaginal ultrasound reveals a single live intrauterine with a heartbeat of 121, subchorionic hemorrhage, gestational age of 6 weeks 4 days What testing was considered but not performed or refused? (CT, X-rays, U/S, labs)? Why? @ -None What meds were considered but not given or refused? Why? @ -None Did you discuss the management of the patient with other professionals (professionals i.e. , PA, FARM TECHNICIAN, lab, RT, psych nurse, social welfare clerk, forensics analyst, teacher, patrol officer, case loader operator)? Give summary @ -No Was smoking cessation discussed for >3mins.? @ -No Was critical care preformed (if so, how long)? @ -No Were there social determinants of health that impacted care today? How? (Homelessness, low income, unemployed, alcoholism, drug addiction, transportation, low edu. Level, literacy, decrease access to med. care, fdc, rehab)? @ -No Was there de-escalation of care discussed even if they declined (Discuss DNR or withdrawal of care, Hospice)? DNR status @ -No What co-morbidities impacted this encounter? (DM, HTN, Smoking, COPD, CAD, Cancer, CVA, ARF, Chemo, Hep., AIDS, mental health diagnosis, sleep apnea, morbid obesity)? @ -None Was patient admitted / discharged? Hospital course, mention meds given and route, prescriptions, significant lab abnormalities, going to OR and other pertinent info. @ -Discharge. 23-year-old female approximately 6 weeks gestation with abdominal pain and vaginal bleeding. Patient's vitals are stable upon arrival and she with no signs of acute distress. Abdominal exam reveals mild tenderness to palpation. Patient is symptomatically treated with fluids, antiemetics, Tylenol pending results of ultrasound and labs and urinalysis. Patient is agreeable to this plan. CBC , C[place] unremarkable, [place] [address], analysis no signs of infection. Ultrasound reveals a intrauterine with a estimated age of 6 weeks and 4 days with a heart rate of 121. Recommend that patient follow-up with customer account executive for further evaluation. All questions answered at bedside and strict return parameters jamil with the patient she is verbalized understanding. Case discussed with Dr. Garcia Undiagnosed new problem with uncertain prognosis? @ -No Drug Therapy requiring intensive monitoring for toxicity (Heparin, Nitro, Insulin, Cardizem)? @ -No Were any procedures done? @ -No Diagnosis/symptom? @ -Vaginal bleeding during , intrauterine , subchorionic hematoma Acute, or Chronic, or Acute on Chronic? @ -acute Uncomplicated (without systemic symptoms) or Complicated (systemic symptoms)? @ -uncomplicated Side effects of treatment? @ -No Exacerbation, Progression, or Severe Exacerbation? @ -No Poses a threat to life or bodily function? How? (Chest pain, USA, CA, pneumonia, PE, COPD, DKA, ARF, appy, cholecystitis, CVA, Diverticulitis, Homicidal, Suicidal, threat to staff... and all critical care pts) @ -No - Lab Data Result diagrams: 11/23/23 22:14 11/23/23 22:14 Lab Results 11/23/23 11/23/2311/22/24 Range/Units 22:14 22:14 23:50 WBC 8.7 (3.8-10.6) k/uL RBC 4.50 (3.80-5.40) m/uL Hgb 13.5 (11.4-16.0) gm/dL Hct 39.3 (34.0-46.0) % MCV 87.4 (80.0-100.0) fL MCH 30.0 (25.0-35.0) pg MCHC 34.3 (31.0-37.0) g/dL RDW 12.4 (11.5-15.5) % Plt Count 234 (150-450) k/uL MPV 7.2 Neutrophils % 47 % Lymphocytes % 43 % Monocytes % 6 % Eosinophils % 1 % Basophils % 1 % Neutrophils # 4.1 (1.3-7.7) k/uL Lymphocytes # 3.7 (1.0-4.8) k/uL Monocytes # 0.5 (0-1.0) k/uL Eosinophils # 0.1 (0-0.7) k/uL Basophils # 0.1 (0-0.2) k/uL Sodium 137 (137-145) mmol/L Potassium 4.4 (3.5-5.1) mmol/L Chloride 104 (98-107) mmol/L Carbon Dioxide 25 (22-30) mmol/L Anion Gap 8 mmol/L BUN 11 (7-17) mg/dL Creatinine 0.56 (0.52-1.04) mg/dL Est GFR (CKD-EPI)AfAm >90 (>60 ml/min/1.73 sqM) Est GFR (CKD-EPI)NonAf >90 (>60 ml/min/1.73 sqM) Glucose 83 (74-99) mg/dL Calcium 9.3 (8.4-10.2) mg/dL Total Bilirubin 0.8 (0.2-1.3) mg/dL AST 27 (14-36) U/L ALT 18 (4-34) U/L Alkaline Phosphatase 39 (38-126) U/L Total Protein 6.7 (6.3-8.2) g/dL Albumin 4.2 (3.5-5.0) g/dL Amylase 58 (30-110) U/L Lipase 47 (23-300) U/L HCG, Quant 60288.6 mIU/mL Urine Color Yellow Urine Appearance Clear (Clear) Urine pH 6.5 (5.0-8.0) Ur Specific [place] 1.021 (1.001-1.035) Urine Protein Negative (Negative) Urine Glucose (UA) Negative (Negative) Urine Ketones 2+ H (Negative) Urine Blood Small H (Negative) Urine Nitrite Negative (Negative) Urine Bilirubin Negative (Negative) Urine Urobilinogen <2.0 (<2.0) mg/dL Ur Leukocyte Esterase Negative (Negative) Urine RBC <1 (0-5) /hpf Urine WBC 2 (0-5) /hpf Ur Squamous Epith Cells 1 (0-4) /hpf Urine Mucus Few H (None) /hpf Disposition Clinical Impression: Abdominal pain, Intrauterine , Subchorionic hematoma in first tr imester Disposition: HOME SELF-CARE Condition: Good Instructions (If sedation given, give patient instructions): Abdominal Pain in (ED) Additional Instructions: Return to the emergency department for any new or worsening symptoms. Recommend follow-up with OB next week for further evaluation. Is patient prescribed a controlled substance at d/c from ED?: No Referrals: Devendra Goode MD [Primary Care Provider] - 1-2 days Time of Disposition: 00:45
[2023-11-23 22:29] LABS: Basophils # (A) 0.1 k/uL (0-0.2); Basophils % (A) 1 %; Eosinophils # (A) 0.1 k/uL (0-0.7); Eosinophils % (A) 1 %; HCT 39.3 % (34.0-46.0); HGB 13.5 gm/dL (11.4-16.0); Lymphocytes # (A) 3.7 k/uL (1.0-4.8); Lymphocytes % (A) 43 %; MCHC 34.3 g/dL (31.0-37.0); MCV 87.4 fL (80.0-100.0); Mean Platelet Volume 7.2; Monocytes # (A) 0.5 k/uL (0-1.0); Monocytes % (A) 6 %; Neutrophils # (A) 4.1 k/uL (1.3-7.7); Neutrophils % (A) 47 %; Platelet Count 234 k/uL (150-450); RDW 12.4 % (11.5-15.5); WBC 8.7 k/uL (3.8-10.6)
[2023-11-23] MEDS: SODIUM CHLORIDE 0.9% 1,000 ML IV STA (22:33)
[2023-11-23] MEDS: ONDANSETRON 4 MG/2 ML VIAL IVP STA (22:42)
[2023-11-23 23:03] LABS: ALT 18 U/L (4-34); AST 27 U/L (14-36); African American GFR (CKD) >90 (>60 ml/min/1.73 sqM); Albumin 4.2 g/dL (3.5-5.0); Alkaline Phosphatase 39 U/L (38-126); Amylase 58 U/L (30-110); Anion Gap 8 mmol/L; Blood Urea Nitrogen 11 mg/dL (7-17); Calcium 9.3 mg/dL (8.4-10.2); Carbon Dioxide 25 mmol/L (22-30); Chloride 104 mmol/L (98-107); Glucose 83 mg/dL (74-99); Lipase 47 U/L (23-300); Non-African American GFR(CKD) >90 (>60 ml/min/1.73 sqM); Potassium 4.4 mmol/L (3.5-5.1); Sodium 137 mmol/L (137-145); Total Bilirubin 0.8 mg/dL (0.2-1.3); Total Protein 6.7 g/dL (6.3-8.2)
[2023-11-23 23:44] LABS: HCG,Quantitative Serum 42359.6 mIU/mL
[2023-11-23] MEDS: ACETAMINOPHEN TAB 500 MG TAB PO STA (23:50)
--- NOTE | 2023-11-23 23:53 | US ---
EXAM: US , Transvaginal CLINICAL HISTORY: ITS.REASON US Reason: ab cramping, bleeding, hx of threatened . LMP: 10/07/2023. Gestational age: 6 weeks 5 days. TECHNIQUE: Real-time transvaginal obstetrical ultrasound of the maternal pelvis and a first trimester with image documentation. Transvaginal imaging was used for better evaluation of the fetus and adnexa. COMPARISON: 11/17/2023 FINDINGS: Gestation: One intrauterine gestation. Yolk sac: 3 mm (normal less than 6 mm). Mean sac diameter: 1.58 cm: 6 weeks 3 days gestational age. CRL: 0.63 cm: 6 weeks 4 days. heart rate: 121 bpm. Placenta/amniotic fluid: Cannot be adequately evaluated due to the early gestational age. Uterus/cervix: Uterus is retroverted, measures 8.3 x 5.9 x 6.9 cm.. There is a 2.7 x 1.4 x 1.4 cm hypoechoic area adjacent to the gestational sac/subchorionic bleed. Ovaries: Right ovary is obscured by bowel gas. Left ovary measures 2.7 x 2.0 x 2.8 cm. There is a 1.4 x 1.2 x 1.3 cm anechoic area with echogenic competent seen in the left ovary, question corpus luteum cyst versus an additional ectopic . Free fluid: No free fluid. IMPRESSION: Single live intrauterine gestation with a heart rate 121 bpm. Subchorionic hemorrhage. A left ovarian 1.4 x 1.2 x 1.3 cm carpus luteal cyst versus an additional ectopic . Recommend follow-up. Ultrasound estimated gestational age: 6 weeks 4 days. MINGO: 07/14/2024. Congruent dates. .
[2023-11-24 00:29] LABS: Appearance,Urine Clear (Clear); Bilirubin,Urine Negative (Negative); Blood,Urine Small (Negative); Color,Urine Yellow; Glucose,Urine (UA) Negative (Negative); Ketones,Urine 2+ (Negative); Leukocyte Esterase,Urine Negative (Negative); Mucus,Urine Few /hpf; Nitrite,Urine Negative (Negative); PH, Urine 6.5 (5.0-8.0); Protein,Urine Negative (Negative); RBC,Urine <1 /hpf (0-5); Specific Gravity,Urine 1.021 (1.001-1.035); Squamous Epithelial Cell,Urine 1 /hpf (0-4); Urobilinogen,Urine <2.0 mg/dL (<2.0); WBC,Urine 2 /hpf (0-5)
== END 2023-11-24 02:19 | disposition home or self-care (01) ==
LOC: EC 20:49
CPT/HCPCS: 36415; 76801; 76817; 80053; 81001; 82150; 83690; 84702; 85025; 96361; 96374; 99284